=== PATIENT | male | born 1990 | race Caucasian/White ===

== ENCOUNTER 2020-08-06 17:13 | Emergency (ER) | payer MEDICAID, SELFPAY ==
[2020-07-29 13:03] VITALS: BMI 32.9
[2020-08-06 17:15] VITALS: BP 164/89; PULSE 127; RESP 30; TEMP 37.2; O2SAT 98; BMI 32.1
--- NOTE | 2020-08-06 17:19 | NURSING ---
NO OLD EKGS
[2020-08-06 17:20] VITALS: BP 164/89; PULSE 133; RESP 24; TEMP 37.1; O2SAT 97
--- NOTE | 2020-08-06 17:30 | EKG12_ITS ---
Test Reason : TACHYCARDIA Blood Pressure : / mmHG Vent. Rate : 130 BPM Atrial Rate : 130 BPM P-R Int : 138 ms QRS Dur : 086 ms QT Int : 298 ms P-R-T Axes : 037 049 025 degrees QTc Int : 438 ms Sinus tachycardia Otherwise normal ECG Confirmed by BRENT BECKFORD, ELISE ([id number]), science editor ERNIE FISCHER ([id number]) on 08/08/2020 9:35:46 AM Referred By: KARLEY Confirmed By:MEGHAN KENNEDY MD
--- NOTE | 2020-08-06 17:31 | CT_ITS ---
STUDY: CTA CHEST WITH CONTRAST REASON FOR EXAM: Male, 30 years old patient with chest pain and tachycardia RADIATION DOSAGE (If Supplied By Facility): DLP = ( 974.74 ) mGycm TECHNIQUE: The examination was performed with the intravenous administration of 100mL of Isovue-370. Post-processing of the angiographic images was performed, with multiplanar reformation and 3D reconstruction. Individualized dose optimization techniques were used for this CT. COMPARISON: No relevant priors. FINDINGS: CTA Chest Normal enhancement of the main pulmonary artery and right and left pulmonary arteries. There is limited enhancement of the bilateral peripheral pulmonary arteries. There is no demonstrated pulmonary embolism. Normal thoracic aorta and visualized great vessels. There is no demonstrated aortic dissection. Normal heart and pericardium. Normal mediastinum. Normal hilar regions. Normal visualized trachea and bronchi. The lungs are well expanded. Normal pulmonary parenchyma. Normal pleura. Normal chest wall structures. There are degenerative changes of thoracic spine. There appears to be hepatic steatosis. CT/CTA Chest W/WO Contrast IMPRESSION: 1. No CT evidence for central pulmonary embolus. 2. No evidence for aortic dissection. 3. No CT evidence of acute cardiopulmonary disease. Electronically Signed: Barbara Helton MD at 19:15 EDT , Service support ,
--- NOTE | 2020-08-06 17:31 | ED.VISSUMM ---
- ER Visit Summary Date of Service: 08/06/20 Chief Complaint: [Chest pain] History of Present Illness: The patient is a 30 M [presents to the emergency department complaint of chest pain that started while at work today. 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 Patient states that he had Covid recently but was cleared to go back to work. Patient feels like he is going to and has been praying to God. Patient has remote history of methamphetamine use but denies using recently. States that he is in recovery. Patient has no medical history otherwise. He denies alcohol use.] Physical Examination: [HEENT-PERRLA, EOMI. Cranial nerves II through XII grossly intact. TMs clear. Mucous membranes moist. No adenopathy. Cardiovascular-regular and tachycardic with heart rate in the 130s. No murmurs auscultated. Lungs-clear to auscultation, chest wall stable without crepitus or subcu emphysema Abdomen-normoactive bowel sounds, soft, nontender, no rebound or rigidity, no peritoneal signs. Extremities-intact ?4, normal range of motion, normal pulses, atraumatic] Test Results: [EKG obtained arrival shows sinus tachycardia with a ventricular rate of 130 bpm with no acute ST segment changes noted.] CTA of the chest was negative for PE or dissection. CBC with differential showed a slightly elevated white count of 14.3, hemoglobin 14.6, hematocrit 42, platelet 282. Chemistries unremarkable. Troponin was less than 0.015. Toxicology screen was positive for methamphetamines. Emergency Department Course and Treatment: [IV line established on arrival. Patient became uncooperative and was standing in the room and was very paranoid and agitated therefore he was given Ativan 1 mg IV and Geodon 10 mg IM. Patient did calm down easily afterwards. On repeat examination approximately 4 hours after arrival he is feeling much improved. His paranoia is essentially resolved. Patient is asking to be discharged and I think this is reasonable. Patient states that he left his phone at work so he can call anybody but has money and would like to take a cab home.] Treatment Plan: [Patient advised to discontinue methamphetamine use. Is to follow-up with his primary care physician as needed and I will refer him to primary care physician if he does not have one.] Disposition: [Discharged home in stable condition] Impression: [Chest pain-etiology uncertain Methamphetamine drug abuse with resultant paranoia] This note was generated with [employer] dictation software. It may contain incorrect words, spelling, and punctuation that were not noted in review of the chart prior to signing
[2020-08-06 17:41] LABS: Absolute Lymphocyte Count 2.11 X10^3/uL (0.83-4.51); Absolute Neutrophil Count 10.7 X10^3/uL (2.0-7.7); Basophil# 0.03 X10^3/uL; Basophil% 0.2 % (0-1); Eosinophil# 0.06 X10^3/uL; Eosinophils% 0.4 % (0-5); Hematocrit 42.5 % (40-54); Hemoglobin 14.6 g/dL (13.0-16.5); Lymphocyte # 2.11 X10^3/ul (4.0); Lymphocyte % 14.8 % (19-41); Mean Corp Hgb Conc 34.4 g/dL (32-36); Mean Corpuscular Volume 87.3 fL (80-94); Mean Platelet Vol. 9.6 fl (6.2-12.0); Monocyte# 1.34 X10^3/uL; Monocyte% 9.4 % (0-10); NRBC Flagged by Analyzer 0 % (0-5); Neutrophil # 10.66 X10^3/uL (2.7-7.7); Neutrophil % 74.8 % (47-70); Platelet Count 282 K/mm3 (150-450); RBC Distribution Width SD 43.7 fl (35.1-43.9); Red Blood Count 4.87 M/mm3 (4.6-6.2); White Blood Count 14.3 K/mm3 (4.4-11.0)
[2020-08-06 17:56] LABS: Anion Gap 9 (5-15); BUN 13 mg/dL (7-18); BUN/Creat Ratio 11.1 RATIO (10-20); Calcium,Total 9.8 mg/dL (8.5-10.1); Chloride 103 mmol/L (98-107); Creatinine, Serum 1.17 mg/dL (0.70-1.30); EST Glomerular Filtration Rate 79 mL/min (>60); Est Glom Filt Rate - Afr Amer 95 mL/min (>60); Glucose 96 mg/dL (74-106); Potassium 3.5 mmol/L (3.5-5.1); Sodium Level 140 mmol/L (136-145)
[2020-08-06] MEDS: LORazepam 2 MG/ML Syringe 1 MG IV (17:56)
[2020-08-06] MEDS: Ziprasidone IM 20 MG/ML VIAL 10 MG IM (17:58)
[2020-08-06 19:17] VITALS: BP 157/78; PULSE 102; RESP 16; O2SAT 99
[2020-08-06 19:49] LABS: Amphetamine Urine VISTA POSITIVE (<1000 ng/mL); Barbiturate Urine VISTA NEGATIVE (< 200 ng/mL); Benzodiazepine Urine VISTA NEGATIVE (< 200 ng/mL); Cocaine Urine VISTA NEGATIVE (< 300 ng/mL); Ecstacy Urine VISTA POSITIVE (< 500 ng/mL); Methadone Urine VISTA NEGATIVE (< 300 ng/mL); PCP Urine VISTA NEGATIVE (< 25 ng/mL); THC Urine VISTA NEGATIVE (< 50 ng/mL); Vista UDS pH Range 6
--- NOTE | 2020-08-06 21:00 | ED.RN ---
UPON ARRIVAL TO ED PT PARANOID, STATES HE IS ABOUT TO , HAVING VISUAL HALLUCINATIONS. PT FOUND OUT OF BED, LOOKING BEHIND BED, CROUCHING IN CORNERS. CONTINUES TO STATE HE IS ABOUT TO . PUPILS DILATED, DIFFICULT TO REDIRECT. PT AT THIS TIME NOW APPEARS LUCID, NORMAL CONVERSATION WITH THIS RN, STATES I FEEL MUCH BETTER.
--- NOTE | 2020-08-06 21:15 | ED.DEP ---
ED Disposition - Plan for ED Patient: Instructions: ED Chest Pain, Uncertain Cause, ED Drug Abuse Referrals: Care Physician,No Primary [Primary Care Provider] - Cruz Hull MD [STAFF PHYSICIAN] - 3-5 Days
[2020-08-06 21:51] VITALS: BP 128/74; PULSE 87; RESP 16; O2SAT 99
== END 2020-08-06 21:53 | disposition home or self-care (01) ==
LOC: ED 18:05
PROVIDERS: Emergency Provider Emergency Medicine
DX: R07.9 Chest pain, unspecified (principal); F15.10 Other stimulant abuse, uncomplicated; R45.1 Restlessness and agitation; F22 Delusional disorders; R00.0 Tachycardia, unspecified; Z72.0 Tobacco use; Z86.16 Personal history of COVID-19
CPT/HCPCS: 71275; 80048; 80307; 84484; 85025; 93005; 96372; 96374; 99285; Q9967; J3486

== ENCOUNTER 2020-08-07 02:21 | Observation (INO) | payer MEDICAID, SELFPAY ==
[2020-08-06 17:15] VITALS: BMI 32.1
[2020-08-07 02:21] VITALS: BP 155/96; PULSE 116; RESP 16; TEMP 37.2; O2SAT 99; BMI 32.1
--- NOTE | 2020-08-07 02:28 | EKG12_ITS ---
Test Reason : DYSRHYTHMIA Blood Pressure : / mmHG Vent. Rate : 122 BPM Atrial Rate : 122 BPM P-R Int : 142 ms QRS Dur : 088 ms QT Int : 314 ms P-R-T Axes : 034 029 023 degrees QTc Int : 447 ms Sinus tachycardia Otherwise normal ECG Confirmed by BRENT BECKFORD, ELISE ([id number]), supervising editor trailer ERNIE FISCHER ([id number]) on 08/08/2020 9:36:02 AM Referred By: CL Confirmed By:MEGHAN KENNEDY MD
[2020-08-07] MEDS: 0.9% Normal Saline 1,000 ML 999 ML IV (02:41)
[2020-08-07] MEDS: LORazepam 2 MG/ML Syringe 1 MG IV (02:41)
[2020-08-07 02:44] VITALS: BP 155/96; PULSE 116; RESP 16; TEMP 37.2; O2SAT 99
--- NOTE | 2020-08-07 02:48 | HP.PCM_ITS ---
Problem List (1) Admitted to alcohol detoxification center Status: Acute (2) Alcohol abuse Status: Chronic (3) Methamphetamine use Status: Chronic (4) Tobacco use Status: Chronic History of Present Illness Date of Admission: 08/07/20 Chief Complaint: EtOH withdrawal treatment request The patient is a 30 y/o M w/ PMHx: Tobacco use, polysubstance abuse with methamphetamines and heavy alcohol intake who presents to the [facility] ED on 08/07/20 with history of usual intake of vodka up to 1 pint daily however his last heavy intake was approximately 1 week prior to current presentation with transition into the transition house as well as history of frequent methamphetamines which he smokes and last notes smoking the day prior. He states he was recently kicked out of the transition house for breaking his contract. He does state that his last alcohol formal intake was the evening prior to current presentation with specifically 1 twisted tea, 1 Point Lay Light and a [employer] hard lemonade. Following his recent heavy intake cessation he did have mild nausea with tremors and agitation but currently denies any nausea, tremors or tactile disturbances. Upon evaluation he is extremely agitated and paranoid frequently requesting to hold the 180 wraps hand. Patient of note has recently come off of COVID-19 precautions, testing +11 days prior to current presentation with mild coarse, currently allowed to return to work. Work-up in the ED included T 99, heart rate 116, BP 155/96, respiratory rate 16, 99% on room air, pending CBC, BMP, alcohol level, urinalysis and urine drug screen upon requested ED evaluation. In the ED patient ministered normal saline as well as Ativan 1 mg IV x1. Past Medical History Past Medical History (Chronic Problems): Chronic Problems Alcohol abuse (Chronic) Methamphetamine use (Chronic) Tobacco use (Chronic) Allergies No Known Allergies Allergy (Unverified 08/06/20 17:23) Home Medications: Ambulatory Orders Medication Instructions Recorded NK 08/06/20 Surgical History: - - Patient had surgery related with spina bifida. Psychiatric History: No pertinent psych hx - Patient denies any psychiatric history including anxiety, depression, bipolar disorder. Lives: Homeless - Patient recently kicked out of the transition house for breaking his contract per his report. Smoking Status: Current every day smoker - Patient with ongoing 1 pack/day cigarette tobacco usage. Tobacco Use: Cigarettes Alcohol: Heavy - Patient reports heavy alcohol intake, usually up to 1 pint of vodka daily, last heavy usage 1 week prior, last alcohol intake 08/06/2020 with 1 Catalino[employer] hard lemonade, 1 twisted tea, 1 Point Lay Light. Drugs: - - Patient with frequent methamphetamine usage, smokes, last day prior. - *Family History Maternal History Items: - - Patient denies any marked maternal family history including heart disease, diabetes or cancer. Paternal History Items: - - Patient denies any market paternal family history including heart disease, diabetes, cancer. Review of Systems Constitutional: Reports: Malaise, Fatigue. Denies: Chills, Fever, Weight Change HEENT: Reports: Head Aches. Denies: Sinus Congestion, Sinus Drainage Cardiovascular: Denies: Chest Pain, Palpitations Respiratory: Reports: Cough, Shortness of Breath. Denies: Shortness of breath at rest, Shortness of breath upon exertion, Sputum production Gastrointestinal: Denies: Abdominal Pain, Nausea, Vomiting Genitourinary: Denies: Dysuria Musculoskeletal: Reports: Joint Pain. Denies: Joint Tenderness Skin: Denies: Rash, Wounds Neurological: Reports: Tremor. Denies: Focal weakness, Numbness, Tingling Psychiatric: Denies: Anxiety, Depression, Homicidal Ideations, Suicidal Ideations Hematologic/ Lymphatic: Denies: Easy Bruising, Easy Bleeding VTE Information - Inpt Only VTE Present on Admission: No VTE Mechan Device Prophylaxis: None VTE Pharm Prophylaxis ordered?: No Reason prophylaxis not ordered:: Treatment Not Indicated Patient Problems: Active and Suspected Problems (Last Reviewed 07/29/20 @ 13:06 by Jess Barakat RN) Admitted to alcohol detoxification center (Acute) Subjective: Patient seated upright in the bed, very flat affect, frequently looking at the floor in the 180 medical sales representative, frequently holding her hand. Objective: Physical Examination: General: awake, alert, oriented x 3 and cooperative, initially walking around in the ED room, frequently looking around, some paranoid behavior. Skin: normal color, turgor, no icterus, cyanosis, several tattoos including facial. HEENT: AT/NC, EOMI, PERRLA, mildly dry MM, no carotid bruits or JVD noted. Lungs: Diminished breath sounds, greater bases, no obvious distress, no rales, ronchi or wheezing. Heart: Mildly tachycardic with regular rhythm; no gallop, rub audible. Abdomen: soft, NTTP, ND, normal BS, no HSM. Extremities: no cyanosis, clubbing, or edema. Neurological: patient awake, alert, oriented as noted; cognitive function appears intact although patient very paranoid, possibly related with recent methamphetamine usage; pupils equally reactive to light and accomodation; cr anial nerves II-XII grossly normal, moving all 4 extremities, no focal deficits, strength preserved. Psychiatric: affect appears flat but at the same time intermittently paranoid and mildly agitated, no acute evidence of depressive or anxiety feelings. - Physical Exam Vitals/I&O's: Vital Signs Temp Pulse Resp BP Pulse Ox 99.0 F 116 H 16 155/96 H 99 08/07/20 02:44 08/07/20 02:44 08/07/20 02:44 08/07/20 02:44 08/07/20 02:44 Oxygen Delivery Method Room Air Weight: 217 lb 6.012 oz Body Mass Index (BMI) 32.1 Current Medications Sodium Chloride () 1,000 mls @ 999 mls/hr IV .Q1H1M ONE Stop: 08/07/20 03:29 Last Admin: 08/07/20 02:41 Dose: 999 mls/hr Documented by: Assessment/Plan All Active Problems (Last Reviewed 07/29/20 @ 13:06 by Jess Barakat RN) Admitted to alcohol detoxification center (Acute) Infected dental carries (Acute) The patient is a 30 y/o M w/ PMHx: Tobacco use, polysubstance abuse with methamphetamines and heavy alcohol intake who presents to the [facility] ED on 08/07/20 with history of usual intake of vodka up to 1 pint daily however his last heavy intake was approximately 1 week prior to current presentation with transition into the transition house as well as history of frequent methamphetamines which he smokes and last notes smoking the day prior. 1. Acute EtOH Withdrawal: Will admit to MS, routine labs obtained in the ED upon presentation and pending upon evaluation. Given interest in sobriety, will initiate and continue on protocol with taper course of Phenobarbital, scheduled gabapentin for seizure prophylaxis, as needed Catapres, Bentyl, Vistaril, IV fluids, IV antiemetics, Tylenol as needed for pain. Will consult Case management for assistance for transition to next level of rehabilitation care. Mag, phos pending. Maintain on CIWA protocol concurrently. 2. Recent Acute Viral Syndrome, COVID-19: Noted testing positive 07/29/2020 with symptom onset prior to being tested, noted a very mild course, resolved, currently out of quarantine. 3. Polysubstance abuse: Concurrent methamphetamine usage, smokes per his report, UDS pending upon presentation, notes last usage day prior, likely contributing to his agitation paranoia. 4. Tobacco Abuse: Encouraged cessation, inpatient consultation per RT, NR if desired. 5. DVT prophylaxis: Low risk, encourage ambulation. Inpatient E&M: 14001 Init Hosp L2
--- NOTE | 2020-08-07 02:48 | ED.VIS.GEN ---
History of Present Illness Chief Complaint: Substance Abuse Informant: Patient Narrative: 30-year-old male presents with concern for substance abuse. Patient is requesting detox from methamphetamine and alcohol. Was seen earlier today with concern for chest pain. Patient was found to likely be high methamphetamine at that time. Patient was discharged home. Denies any current chest pain. Patient does admit to using meth yesterday and alcohol 1 week ago. States that he tested positive for Covid approximately Mims days ago. Had a piece of paper stating he returned to work yesterday. Denies any current fever, chills, cough, upper respiratory congestion, nausea vomiting, abdominal pain. Past Medical History - Allergies and Home Meds Allergies/Adverse Reactions: Allergies No Known Allergies Allergy (Unverified 08/06/20 17:23) Primary Care Physician: Care Physician,No Primary [Primary Care Provider] - Prior records reviewed: Yes Past Medical History: None Surgical History: no surgical history Lives: Alone Smoking Status: Current every day smoker Alcohol: Heavy Drugs: - - methamphetamine Review of Systems General: Denies: Chills, Fever, Sweats Eyes: Denies: Visual changes - bilaterally, Diplopia ENT: Denies: Rhinorrhea, Sore throat Cardiovascular: Denies: Chest pain, Palpitations Respiratory: Denies: Dyspnea, Cough, Dyspnea on exertion Gastrointestinal: Denies: Abdominal pain, Nausea, Vomiting, Diarrhea, Melena, Hematochezia Genitourinary: Denies: Dysuria, Hematuria, Frequency Musculoskeletal: Denies: Back pain, Extremity Pain Skin: Denies: Rash, Wounds Neurological: Denies: Headache, Weakness, Numbness Physical Exam Vital Signs/Narrative: Vital Signs Temp Pulse Resp BP Pulse Ox 08/07/20 02:44 99.0 F 116 H 16 155/96 H 99 08/07/20 02:21 99.0 F 116 H 16 155/96 H 99 Inital Vital Signs reviewed: Yes General: Well nourished, Well developed, No Acute Distress Head: Normocephalic, Atraumatic Eyes: Perrl, EOMI ENT: Moist mucous membranes, No rhinorrhea Neck: Supple, Nontender Cardiovascular: Regular rate, Regular rhythm, No murmurs Respiratory: No distress, CTA bilaterally, Chest nontender Abdomen: Soft, Nontender, Nondistended, Normal bowel sounds Back: Nontender, Normal Inspection Extremities: Nontender, No edema Skin: Normal color, No rash Neurological: Alert, Oriented x3, Cranial nerves II-XII grossly intact, Normal Strength, Normal Sensation Psychological: Normal affect, Normal Mood Diagnostic/Tx/Re-eval Laboratory Data 08/07/20 08/07/20 02:50 02:50 WBC 11.2 H RBC 5.14 Hgb 15.0 Hct 44.5 MCV 86.6 MCH 29.2 MCHC 33.7 RDW Std Deviation 43.5 RDW Coeff of Chucky 13.7 Plt Count 284 MPV 9.5 Immature Gran % (Auto) 0.300 Neut % (Auto) 68.9 Lymph % (Auto) 20.4 [place] % (Auto) 9.9 Eos % (Auto) 0.1 Baso % (Auto) 0.4 Absolute Neuts (auto) 7.7 Absolute Lymphs (auto) 2.29 Nucleated RBC % 0 Ethyl Alcohol < 3.0 - Rhythm Strip Rhythm Strip: Sinus Tach Rate: 122 Ectopy: None - EKG Initial EKG Interpretation: Sinus Tachycardia - Sinus tachycardia at 122 bpm. MA interval of 142 ms. QTC of 447 ms. No evidence of acute ischemia. - Medical Decision Making Patient appears well nontoxic. Tachycardic. Patient given 1 mg of Ativan and a liter of fluids. Patient had full work-up earlier today. Spoke with hospitalist who is agreeable with admission for treatment of his substance abuse. Stable at time of admission. Impression: 1. Amphetamine abuse 2. Alcohol abuse ED Disposition - Plan for ED Patient: Disposition: Acute Care Hospital [facility] Referrals: Care Physician,No Primary [Primary Care Provider] -
[2020-08-07 02:53] LABS: Absolute Lymphocyte Count 2.29 X10^3/uL (0.83-4.51); Absolute Neutrophil Count 7.7 X10^3/uL (2.0-7.7); Basophil# 0.04 X10^3/uL; Basophil% 0.4 % (0-1); Eosinophil# 0.01 X10^3/uL; Eosinophils% 0.1 % (0-5); Hematocrit 44.5 % (40-54); Lymphocyte # 2.29 X10^3/ul (4.0); Lymphocyte % 20.4 % (19-41); Mean Corp Hgb Conc 33.7 g/dL (32-36); Mean Corpuscular Hgb 29.2 pg (27.0-32.0); Mean Corpuscular Volume 86.6 fL (80-94); Mean Platelet Vol. 9.5 fl (6.2-12.0); Monocyte# 1.11 X10^3/uL; Monocyte% 9.9 % (0-10); NRBC Flagged by Analyzer 0 % (0-5); Neutrophil # 7.74 X10^3/uL (2.7-7.7); Neutrophil % 68.9 % (47-70); Platelet Count 284 K/mm3 (150-450); RBC Distribution Width CV 13.7 % (11.6-14.6); RBC Distribution Width SD 43.5 fl (35.1-43.9); Red Blood Count 5.14 M/mm3 (4.6-6.2); White Blood Count 11.2 K/mm3 (4.4-11.0)
[2020-08-07 03:06] LABS: Alcohol, Blood (Medical)-Serum < 3.0 mg/dL
[2020-08-07 03:13] LABS: Anion Gap 8 (5-15); BUN 15 mg/dL (7-18); BUN/Creat Ratio 13.9 RATIO (10-20); Calcium,Total 9.4 mg/dL (8.5-10.1); Chloride 104 mmol/L (98-107); Creatinine, Serum 1.08 mg/dL (0.70-1.30); EST Glomerular Filtration Rate 86 mL/min (>60); Est Glom Filt Rate - Afr Amer 105 mL/min (>60); Estimated Creatinine Clearance 101.83 ml/min; Glucose 106 mg/dL (74-106); Potassium 3.6 mmol/L (3.5-5.1); Sodium Level 140 mmol/L (136-145)
[2020-08-07 03:57] VITALS: BP 152/80; PULSE 88; RESP 16; TEMP 37.1; O2SAT 98
[2020-08-07 04:07] VITALS: BMI 27.3
[2020-08-07 04:15] VITALS: BP 146/81; PULSE 118; RESP 24; TEMP 36.3; O2SAT 97
--- NOTE | 2020-08-07 05:40 | ED.RN ---
MOTHER - ELIZA [phone]
[2020-08-07 05:55] LABS: Phosphorus 3.2 mg/dL (2.5-4.9)
[2020-08-07] MEDS: Lactated Ringers 1,000 ML 125 ML IV (06:27)
[2020-08-07 08:03] VITALS: BP 144/87; PULSE 122; RESP 16; TEMP 36.9; O2SAT 99
[2020-08-07] MEDS: Thiamine Hydrochloride 100 MG Tablet PO (08:18)
[2020-08-07] MEDS: Folic Acid 1 MG Tablet PO (08:18)
[2020-08-07] MEDS: Multivitamins,Therapeutic Tablet 1 TABLET PO (08:18)
[2020-08-07] MEDS: Phenobarbital 32.4 MG Tablet 97.2 MG PO (09:38)
--- NOTE | 2020-08-07 10:00 | CASEMGMT ---
Social Work Pt admitted for Detox program for alcohol and methamphetamine use. Phone call to [facility] patient navigator Ana from [employer]. She plans to see patient tomorrow. YOLANDA Lopez
--- NOTE | 2020-08-07 11:32 | PCM.PN.HOSP ---
Patient Problems: Active and Suspected Problems (Last Reviewed 07/29/20 @ 13:06 by Jess Barakat RN) Admitted to alcohol detoxification center (Acute) Subjective: Patient seen and examined. Patient has been managed for acute alcohol withdrawal. Patient is very paranoid and was hiding behind the curtain when I went into the room. He quickly started looking in the bathroom and looking end of the bed and lifted up the bed to look under the mattress to see people with hiding there. He kept pacing around the room looking everywhere to see there were people there. He had no other complaints. He has remained hemodynamically stable. Vitals/I&O's: Vital Signs Temp Pulse Resp BP Pulse Ox 98.5 F 122 H 16 144/87 H 99 08/07/20 08:03 08/07/20 08:03 08/07/20 08:03 08/07/20 08:03 08/07/20 08:03 Oxygen Delivery Method Room Air Weight: 185 lb 0.014 oz Body Mass Index (BMI) 27.3 Intake and Output for Last 24 Hours 08/05/20 08/06/20 08/07/20 23:59 23:59 23:59 Intake Total 1140 / 1140 Balance 1140 / 1140 General: Alert, - - extremely paranoid HEENT: Atraumatic, PERRLA, EOMI, Normocephalic Oral: Dry Mucosa Neck: Supple, No JVD, Negative Carotid Bruits Lungs: Clear to auscultation, Normal air movement, No rhonchi, No wheeze, No rales Cardiovascular: Regular rate, Regular Rhythm, Normal S1, Normal S2, No murmurs Abdomen: Bowel Sounds Present, Soft, Non Tender, Non-Distended, No Hepato-splenomegaly Extremities: No clubbing, No cyanosis, No edema, Capillary Refill Less than 3 Seconds Skin: No rashes, No breakdown Musculoskeletal: No Tenderness to Palpation of Joints or Extremities Lymphatic: No Cervical, Supraclavicular, or Inguinal Adenopathy Neurological: Cranial nerves II-XII grossly intact, Neuro grossly intact, Motor Exam 5/5 strength throughout Psych/Mental Status: Irrational Behavior, - - very paranoid Laboratory Results 08/07/20 02:50: WBC 11.2 H, RBC 5.14, Hgb 15.0, Hct 44.5, MCV 86.6, MCH 29.2, MCHC 33.7, RDW Std Deviation 43.5, RDW Coeff of Chucky 13.7, Plt Count 284, MPV 9.5, Immature Gran % (Auto) 0.300, Neut % (Auto) 68.9, Lymph % (Auto) 20.4, [place] % (Auto) 9.9, Eos % (Auto) 0.1, Baso % (Auto) 0.4, Absolute Neuts (auto) 7.7, Absolute Lymphs (auto) 2.29, Nucleated RBC % 0 08/07/20 02:50: Sodium 140, Potassium 3.6, Chloride 104, Carbon Dioxide 28.0, Anion Gap 8, BUN 15, Creatinine 1.08, Estim Creat Clear Calc 101.83, Est GFR (MDRD) Af Amer 105, Est GFR (MDRD) Non-Af 86, BUN/Creatinine Ratio 13.9, Glucose 106, Calcium 9.4 08/07/20 02:50: Ethyl Alcohol < 3.0 08/07/20 02:50: Phosphorus 3.2 Current Medications Acetaminophen (Acetaminophen 500 Mg Tablet) 500 mg PO Q4H PRN PRN PRN Reason: Temp > 100.4 F Al Hydroxide/Mg Hydroxide (Mag Hydrox/Al Hydrox/Simeth 30 Ml Udc) 30 ml PO Q6H PRN PRN PRN Reason: dyspesia Albuterol Sulfate (Albuterol 2.5 Mg/3 Ml Vial.Neb.) 2.5 mg INHALATION Q2H PRN PRN PRN Reason: Dyspnea, wheezing Bisacodyl (Bisacodyl 10 Mg Suppository) 10 mg RC DAILY PRN PRN Reason: Constipation Dicyclomine HCl (Dicyclomine 10 Mg Capsule) 20 mg PO Q6H PRN PRN PRN Reason: abdominal discomfort Folic Acid (Folic Acid 1 Mg Tablet) 1 mg PO DAILY@0800 [facility], [facility] Last Admin: 08/07/20 08:18 Dose: 1 mg Documented by: Gabapentin (Gabapentin 300 Mg Capsule) 300 mg PO Q8H PRN PRN PRN Reason: moderate to severe anxiety Hydralazine HCl (Hydralazine 20 Mg/Ml Vial) 10 mg IV Q4H PRN PRN PRN Reason: SBP > 160 Hydroxyzine Pamoate (Hydroxyzine Carolyn 25 Mg Capsule) 50 mg PO Q4H PRN PRN PRN Reason: mild anxiety Sodium Chloride () 250 mls @ 15 mls/hr IV .[id number] PRN PRN Reason: Additional IVPB Infusion Lactated Ringer's () 1,000 mls @ 125 mls/hr IV .Q8H [facility] Stop: 08/07/20 13:35 Last Admin: 08/07/20 06:27 Dose: 125 mls/hr Documented by: Ibuprofen (Ibuprofen 600 Mg Tablet) 600 mg PO Q8H PRN PRN PRN Reason: PAIN 1-10 Loperamide HCl (Loperamide 2 Mg Capsule) 2 mg PO Q4H PRN PRN PRN Reason: LOOSE STOOLS Multivitamins ([facility]ivit[facility],Therapeutic Tablet) [facility] Last Admin: 08/07/20 08:18 Dose: 1 tablet Documented by: Nicotine (Nicotine 21 Mg Patch) 21 mg TD DAILY [facility] Last Admin: 08/07/20 08:49 Dose: Not Given Documented by: Ondansetron HCl (Ondansetron Odt 4 Mg Tablet) 8 mg PO Q8H PRN PRN PRN Reason: NAUSEA Phenobarbital (Phenobarbital 32.4 Mg Tablet) 97.2 mg PO Q4H [facility]; Taper Stop: 08/11/20 13:59 Last Admin: 08/07/20 09:38 Dose: 97.2 mg Documented by: Senna (Senna Tablet) 2 tablet PO QHS PRN PRN PRN Reason: Constipation Sodium Chloride (0.9% Saline Lock 10 Ml Syringe) 10 - 40 ml IV UD PRN PRN Reason: SALINE FLUSH Thiamine HCl (Thiamine Hydrochloride 100 Mg Tablet) [facility] Last Admin: 08/07/20 08:18 Dose: 100 mg Documented by: Trazodone HCl (Trazodone 100 Mg Tablet) 100 mg PO QHS PRN PRN PRN Reason: INSOMNIA STROKE Vital Signs/Narrative: Vital Signs Temp Pulse Resp BP Pulse Ox 08/07/20 08:03 98.5 F 122 H 16 144/87 H 99 Medical Necessity - Tobacco Use Smoking Status: Current every day smoker Tobacco Use: Cigarettes Assessment/Plan All Active Problems (Last Reviewed 07/29/20 @ 13:06 by Jess Barakat RN) Admitted to alcohol detoxification center (Acute) Infected dental carries (Acute) #Acute alcohol withdrawal on alcohol withdrawal protocol with buprenorphine monitor CIWA score #History of recent COVID infection doesnt need to be in self isolation any more #polysubstance abuse with paranoia Patient is very paranoid uses methamphetamine as well. #Nicotine dependence: counseled to quit. #DVT prophylaxis: low risk. encourage ambulation. Inpatient E&M: 97017 Subs Hosp L2
[2020-08-07 12:10] VITALS: BP 142/105; PULSE 129; RESP 18; TEMP 37.1; O2SAT 100
--- NOTE | 2020-08-07 12:36 | NURSING ---
talked with Dr. Soriano, pt extremely paranoid. has moved everything in the patient's room against the wall. will not leave the room door open even with the staff in the room. security coming up. pt now states wants to leave ama. concern regarding safety. Dr. Soriano states we can't hold patient here but request crisis be consulted/called. [id number]-security and hro remains on unit. crisis called.
--- NOTE | 2020-08-07 13:05 | NURSING ---
LATE ENTRY - PT TRANSFER FROM ICU. UPON ENTERING ROOM, WATERSIDE WORKER WAS IN THERE TALKING WITH PT. PT VERY PARANOID. LOOKING AROUND, REQUESTING FURNITURE IN ROOM TO BE MOVED AROUND TO OTHER AREAS. WATERSIDE WORKER & THIS RN ATTEMPTED TO CALM PT, UNSUCCESSFUL. PT WOULD NOT SIT DOWN, PACING ROOM, LOOKING IN CABINETS, UNDER BED, ETC. PT STATED HE WANTS OUT OF THIS PLACE. SOMETHING DOESN'T FEEL RIGHT. SECURITY CALLED BY CHARGE NURSE. THEY ATTEMPTED ALSO TO CALM PT, UNSUCCESSFULLY. DR ROA NOTIFIED OF PT BEHAVIOR & WANTING TO LEAVE. WOULD LIKE CRISIS TO SEE PT. EXPLAINED THIS TO PT & HE SAID CAN I GO TO AN OFFICE & TALK TO THEM. TOLD PT THAT SOMEONE WOULD COME HERE TO HIS ROOM & TALK WITH HIM. PT STATES HE WANTS TO GO. PT DID SIGN AMA PAPERS, BUT THEN RECONSIDERED AFTER BEING TOLD WE COULD GET SOME MEDICATION TO HELP HIM CALM DOWN. HOWEVER, THE LONGER THE PT LOOKED AROUND HIS ROOM, THE MORE PARANOID HE BECAME. MANUFACTURING PLANT MANAGER, ENRIQUE WAS ABLE TO CONTACT 180 & THEY WERE AGREEABLE TO TAKE PT BACK. PT CAME OUT OF HIS ROOM WHILE ENRIQUE WAS ON THE PHONE STATING HE WANTED TO LEAVE. SOMEONE'S GOING TO SHOOT ME. SOMETHING'S NOT RIGHT. ENRIQUE WAS ABLE TO TAKE PT DOWNSTAIRS FOR [facility] PICKUP. PT ACTUALLY RAN OFF THE UNIT WITH THE OFFICER.
--- NOTE | 2020-08-07 17:08 | DS.PCM_ITS ---
Discharge Date and Diagnosis - Problem List Patient Problems: Active and Suspected Problems (Last Reviewed 07/29/20 @ 13:06 by Jess Barakat RN) Admitted to alcohol detoxification center (Acute) Date of Admission: 08/07/20 Date of Discharge: 08/07/20 - Primary Discharge Diagnosis Acute Problems: Active Problems (Last Reviewed 07/29/20 @ 13:06 by Jess Barakat RN) acute alcohol withdrawal - Secondary Discharge Diagnosis Chronic Problems: Chronic Problems Alcohol abuse (Chronic) Methamphetamine use (Chronic) Tobacco use (Chronic) Hospital Course and Treatment Operations: None Procedures: None Summary of Care Provided: The patient is a 30 year old M with a PMH as outlined who was admitted with a complaint of acute alcohol withdrawal. He also wanted to detox from methamphetamine. Patient had been seen earlier in the ED on the day of admission for chest pain was found to have elevated methamphetamine levels. He had also tested positive for Covid about 11 days prior to admission and was out of isolation at time he came in. Review of symptoms otherwise negative. He was admitted to be managed for acute alcohol withdrawal. Patient was very paranoid during admission and was hiding behind the curtains and looking under the bed, in the bathroom and everywhere to see people were hiding there. Started on alcohol withdrawal protocol with phenobarbital. Patient remained very paranoid during his admission and signed out AGAINST MEDICAL ADVICE on 08/07/2020. Patient was seen and examined prior to him leaving AGAINST MEDICAL ADVICE. As mentioned above, he was very paranoid and raised the bed and looked all under the bed to find someone hiding under it. He was looking in the bathroom and looking in the trash cans as well as a cane behind the curtain to find someone hiding there. Review of stems otherwise negative. O/E: [] Vital Signs Temp Pulse Resp BP Pulse Ox 98.7 F 129 H 18 142/105 H 100 08/07/20 12:10 08/07/20 12:10 08/07/20 12:10 08/07/20 12:10 08/07/20 12:10 General: Alert, - - extremely paranoid HEENT: Atraumatic, PERRLA, EOMI, Normocephalic Oral: Dry Mucosa Neck: Supple, No JVD, Negative Carotid Bruits Lungs: Clear to auscultation, Normal air movement, No rhonchi, No wheeze, No rales Cardiovascular: Regular rate, Regular Rhythm, Normal S1, Normal S2, No murmurs Abdomen: Bowel Sounds Present, Soft, Non Tender, Non-Distended, No Hepato- splenomegaly Extremities: No clubbing, No cyanosis, No edema, Capillary Refill Less than 3 Seconds Skin: No rashes, No breakdown Musculoskeletal: No Tenderness to Palpation of Joints or Extremities Lymphatic: No Cervical, Supraclavicular, or Inguinal Adenopathy Neurological: Cranial nerves II-XII grossly intact, Neuro grossly intact, Motor Exam 5/5 strength throughout Psych/Mental Status: Irrational Behavior, - - very paranoid Patient signed out AGAINST MEDICAL ADVICE. Patient Problems: Active and Suspected Problems (Last Reviewed 07/29/20 @ 13:06 by Jess Barakat RN) Admitted to alcohol detoxification center (Acute) - Physical Exam Vitals/I&O's: Vital Signs Temp Pulse Resp BP Pulse Ox 98.7 F 129 H 18 142/105 H 100 08/07/20 12:10 08/07/20 12:10 08/07/20 12:10 08/07/20 12:10 08/07/20 12:10 Oxygen Delivery Method Room Air Weight: 185 lb 0.014 oz Body Mass Index (BMI) 27.3 Intake and Output for Last 24 Hours 08/05/20 08/06/20 08/07/20 23:59 23:59 23:59 Intake Total 1140 / 1140 Balance 1140 / 1140 Laboratory Results 08/07/20 02:50: WBC 11.2 H, RBC 5.14, Hgb 15.0, Hct 44.5, MCV 86.6, MCH 29.2, MCHC 33.7, RDW Std Deviation 43.5, RDW Coeff of Chucky 13.7, Plt Count 284, MPV 9.5, Immature Gran % (Auto) 0.300, Neut % (Auto) 68.9, Lymph % (Auto) 20.4, [place] % (Auto) 9.9, Eos % (Auto) 0.1, Baso % (Auto) 0.4, Absolute Neuts (auto) 7.7, Absolute Lymphs (auto) 2.29, Nucleated RBC % 0 08/07/20 02:50: Sodium 140, Potassium 3.6, Chloride 104, Carbon Dioxide 28.0, Anion Gap 8, BUN 15, Creatinine 1.08, Estim Creat Clear Calc 101.83, Est GFR (MDRD) Af Amer 105, Est GFR (MDRD) Non-Af 86, BUN/Creatinine Ratio 13.9, Glucose 106, Calcium 9.4 08/07/20 02:50: Ethyl Alcohol < 3.0 08/07/20 02:50: Phosphorus 3.2 Discharge Diet: No Restrictions Home Medications: Medications to take at Discharge NK 08/06/20 Primary Care Physician: Care Physician,No Primary [Primary Care Provider] - Disposition: Against Medical Advice Minutes spent on discharge:: 40 Medical Necessity - Tobacco Use Smoking Status: Current every day smoker Tobacco Use: Cigarettes Meaningful Use Info Meaningful Use Diagnoses (Choose all that apply): None applicable OBSV E&M: 34751 Observ/hosp same date L2
== END 2020-08-07 12:52 | disposition left against medical advice (07) ==
LOC: ED 03:14 → ICU 07:24 → MS3 08-08 07:34
PROVIDERS: Admitting Provider Family Medicine; Emergency Provider Emergency Medicine; Visit Provider Student in an Organized Health Care Education/Training Program
DX: F10.239 Alcohol dependence with withdrawal, unspecified (principal); F15.10 Other stimulant abuse, uncomplicated; Z86.16 Personal history of COVID-19; F17.210 Nicotine dependence, cigarettes, uncomplicated; Z59.0 Homelessness; K02.9 Dental caries, unspecified; F22 Delusional disorders; R07.9 Chest pain, unspecified; R45.1 Restlessness and agitation; R00.0 Tachycardia, unspecified
CPT/HCPCS: 71275; 80048; 80307; 82077; 84100; 84484; 85025; 93005; 96361; 96372; 96374; 99218; 99284; 99285; 99406; J7030; J7120; Q9967; A4216; G0378; J3486

== ENCOUNTER 2020-11-04 16:04 | Emergency (ER) | payer MEDICAID, SELFPAY ==
[2020-09-22 16:00] VITALS: BMI 27.3
[2020-11-04 16:05] VITALS: BP 119/73; PULSE 131; RESP 16; TEMP 36.4; O2SAT 97; BMI 32.5
[2020-11-04 16:07] VITALS: BP 119/73; PULSE 131; RESP 16; TEMP 36.4; O2SAT 99
--- NOTE | 2020-11-04 16:18 | CT_ITS ---
STUDY: CT LUMBAR SPINE WITHOUT CONTRAST REASON FOR EXAM: Male, 30 years old. back pain RADIATION DOSAGE (If Supplied By Facility): CTDIvol = ( 17.43 ) mGy, DLP = ( 497.67 ) mGycm TECHNIQUE: The patient was scanned in a multi detector CT scanner. High resolution transaxial imaging was performed. Images were obtained from T12 to S1. Sagittal and coronal images were reconstructed. Individualized dose optimization techniques were used for this CT. COMPARISON: None FINDINGS: Normal lumbar lordosis. There is no substantial scoliosis. Normal vertebrae of the lumbar spine. L1-2: Normal endplates. Normal disc height and morphology. Normal bilateral facet joints. Normal central canal and bilateral lateral recesses. Normal bilateral intervertebral neural foramina. L2-3: Normal endplates. Normal disc height and morphology. Normal bilateral facet joints. Normal central canal and bilateral lateral recesses. Normal bilateral intervertebral neural foramina. L3-4: Mild broad disc protrusion produces mild spinal stenosis and mild bilateral neural foraminal stenosis. L4-5: Mild broad disc protrusion produces mild spinal stenosis and mild bilateral neural foraminal stenosis. L5-S1: Mild broad disc protrusion produces mild spinal stenosis and mild bilateral neural foraminal stenosis. Normal visualized paraspinous soft tissue structures. CT/Spine Lumbar without Contrast IMPRESSION: Multilevel degenerative changes, as described above. Electronically Signed: Marco Sigala MD at 17:22 EDT Tel , Service support ,
--- NOTE | 2020-11-04 16:19 | ED.VIS.BACK ---
HPI History of Present Illness Chief Complaint: Back Narrative Narrative: 30-year-old male presents with concern for back pain. 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 States it is aching in nature. Worse with movement. Denies any numbness or tingling. Denies any fever, chills, IV drug abuse. Denies any saddle anesthesia. PFSH PFS Medical History Lab test negative for COVID-19 virus URI (upper respiratory infection) Home Medications NK 08/06/20 [History Last Taken Unknown] cyclobenzaprine 5 mg PO TID PRN #10 tab 11/04/20 [Rx Last Taken Unknown] methylprednisolone [Medrol (To)] 4 mg PO .once a day #21 tab 11/04/20 [Rx Last Taken Unknown] naproxen 500 mg PO BID #14 tab 11/04/20 [Rx Last Taken Unknown] Allergy/AdvReac Type Severity Reaction Status Date / Time No Known Allergies Allergy Unverified 08/06/20 17:23 Social History Smoking Status: Current every day smoker tobacco type: cigarettes alcohol intake: never ROS ROS ED Constitutional Constitutional ED: Denies chills, fever(s) or sweats Eyes Eyes: Denies blurry vision, change in vision or diplopia ENT ENT ED: Denies rhinorrhea or sore throat Cardiovascular Cardiovascular: Denies chest pain, orthopnea, palpitations or racing heartbeat Respiratory/Chest Respiratory/Chest: Denies cough, dyspnea, dyspnea on exertion, orthopnea or sputum Gastrointestinal Gastrointestinal: Denies abdominal pain, constipation, diarrhea, melena, nausea or vomiting Genitourinary Genitourinary ED: Denies dysuria, hematuria or urinary frequency Musculoskeletal Musculoskeletal: Reports back pain; Denies arthralgias, myalgias or neck pain Integumentary Denies rash Neurologic Neurologic: Denies headache(s), paresthesias or weakness Psychiatric Psychiatric: Denies anxiety or depression Hematologic/Lymphatic Hematologic/Lymphatic: Denies easy bleeding or easy bruising Allergic/Immunologic Allergic/Immunologic ED: Denies mouth swelling or tongue swelling EXAM Physical Exam Const Vital Signs: 11/04/20 16:05 11/04/20 16:07 Temperature 97.6 F L 97.6 F L Temperature Source Temporal Temporal Pulse Rate 131 H 131 H Respiratory Rate 16 16 Blood Pressure 119/73 119/73 Blood Pressure Mean 88 88 Pulse Ox 97 99 Oxygen Delivery Method Room Air Room Air Positive well nourished and well developed General Appearance ED: well developed HEENT Reports TM's clear and moist mucous membranes normocephalic and atraumatic Tympanic Membrane ED: Yes TM's clear Eyes PERRL and EOMs intact bilaterally Neck no lymphadenopathy, supple and no JVD Chest Wall inspection of chest normal Resp normal respiratory effort and clear to auscultation bilaterally Cardio regular rate, S1 normal heart sound, S2 normal heart sound and no murmurs Peripheral Pulses: pulses 2+ throughout GI soft to palpation, non-tender and non-distended Back/Spine no CVA tenderness Back/Spine Narrative: Tenderness to palpation in the lumbar midline. No overlying skin changes. No significant pain in flexion or extension. Extremity normal to inspection General Extremety ED: Negative for edema or tenderness General Extremity: Negative for edema Neuro oriented x3, CN's II-XII intact bilaterally and no sensory deficits noted Sensorium / Orientation: alert Motor Exam: strength 5/5 throughout Psych mental status grossly normal Skin no rashes or lesions noted MDM MDM MDM Narrative Medical decision making narrative: Patient appears well nontoxic. No red flag symptoms for cauda equina syndrome. CT of the spine without contrast shows evidence of disc herniation with mild spinal stenosis. Patient was given Toradol and cyclobenzaprine in the emergency department with pain reduction. Patient be placed on Medrol Dosepak, cyclobenzaprine, Naprosyn for home. Given limited work restrictions until Tuesday. Asked to follow-up with primary care. Stable at time of discharge. Radiography Diagnostic Testing: Radiology Impression Lumbar Spine CT 11/04/20 16:18 IMPRESSION: Multilevel degenerative changes, as described above. Electronically Signed: Marco Sigala MD at 17:22 EDT Tel , Service support , Discharge Plan Triage Chief Complaint: Back ED Provider: Boyd Ingram Dx/Rx/DC Orders Clinical Impression: Disc herniation Instructions: ED Back Sprain/Strain Prescriptions: New naproxen 500 mg tablet 500 mg PO BID Qty: 14 RF: 0 cyclobenzaprine 5 mg tablet 5 mg PO TID PRN (Reason: muscle spasm) Qty: 10 RF: 0 methylprednisolone [Medrol (To)] 4 mg tablets,dose pack 4 mg PO .once a day Qty: 21 RF: 0 No Action NK RF: 0 Primary Care Provider: Care Physician,No Primary Referrals: Zak Gibson DO [NON-STAFF] - 2 Days Care Physician,No Primary [Primary Care Provider] - Disposition Disposition: Home, Self Care
[2020-11-04] MEDS: cycloBENZAPRine HCl 10 MG Tablet PO (16:35)
[2020-11-04] MEDS: Ketorolac 15 MG/ML Vial IM (16:35)
[2020-11-04 17:44] VITALS: BP 115/87; PULSE 128; RESP 16; O2SAT 99
== END 2020-11-04 17:45 | disposition home or self-care (01) ==
PROVIDERS: Emergency Provider Emergency Medicine
DX: M51.26 Other intervertebral disc displacement, lumbar region (principal); F17.210 Nicotine dependence, cigarettes, uncomplicated
CPT/HCPCS: 72131; 96372; 99283

== ENCOUNTER 2020-12-07 23:46 | Inpatient (IN) | payer MEDICAID, SELFPAY ==
[2020-12-07 23:47] VITALS: BP 168/101; PULSE 67; RESP 18; TEMP 36.4; O2SAT 98; BMI 31.7
--- NOTE | 2020-12-07 23:47 | ED.RN ---
Pt pulse ox shows hrt 140s. resp notified for ekg. Md at bedside and aware
[2020-12-08] VITALS (8 sets, daily range): BP systolic 93–146; BP diastolic 62–99; PULSE 67–129; RESP 16–18; TEMP 36.4–36.9; O2SAT 96–100; BMI 31.9
--- NOTE | 2020-12-08 00:10 | EDS_ITS ---
HPI History of Present Illness Chief Complaint: Substance Abuse Informant: patient Narrative Narrative: Patient presents with complaints of lower back pain. He states he was seen here recently. He needs a note for work tomorrow because he complains of back pain all the time. He states he can get in certain positions where his back is better. However, he does a lot of bending at work and this bothers his back. [facility] Medical History (Updated 12/08/20 @ 02:52 by Lyla Hackett) Lab test negative for COVID-19 virus Smoker Substance abuse URI (upper respiratory infection) Home Medications naproxen [Naprosyn] 500 mg PO BID PRN #14 tab 12/08/20 [Rx Last Taken Unknown] Allergy/AdvReac Type Severity Reaction Status Date / Time No Known Allergies Allergy Unverified 12/07/20 23:49 Social History Smoking Status: Current every day smoker tobacco type: cigarettes alcohol intake: never ROS ROS ED Constitutional Constitutional ED: Denies chills or fever(s) Eyes Eyes: Denies blurry vision Cardiovascular Cardiovascular: Reports other Details: Patient denies palpitations despite having heart rate in the 130s. ; Denies chest pain or palpitations Respiratory/Chest Respiratory/Chest: Denies dyspnea, dyspnea on exertion or sputum Gastrointestinal Gastrointestinal: Denies abdominal pain, diarrhea, nausea or vomiting Genitourinary Genitourinary ED: Denies dysuria Musculoskeletal Musculoskeletal: Reports back pain; Denies neck pain Integumentary Denies rash Neurologic Neurologic: Denies headache(s), paresthesias or weakness Psychiatric Psychiatric: Denies anxiety or depression Endocrine Endocrinology: Denies polyuria Hematologic/Lymphatic Hematologic/Lymphatic: Denies easy bleeding or easy bruising EXAM Physical Exam Const Vital Signs: 12/07/20 23:47 12/08/20 00:27 12/08/20 01:47 Temperature 97.5 F L 97.5 F L Temperature Source Temporal Temporal Pulse Rate 67 129 H 129 H Respiratory Rate 18 18 18 Blood Pressure 168/101 H 146/99 H 146/99 H Blood Pressure Mean 123 114 114 Pulse Ox 98 99 99 Oxygen Delivery Method Room Air Room Air Positive well nourished and well developed General Appearance ED: well developed HEENT Reports dry mucous membranes HEENT Narrative: Mildly dry mucous membranes Negative for trauma Mouth ED: Yes dry mucous membranes Mouth: dry mucous membranes Eyes PERRL; Negative for EOMs intact bilaterally Neck supple Resp normal respiratory effort and clear to auscultation bilaterally Cardio regular rhythm Rate: tachycardic GI normal to inspection, nondistended, normoactive bowel sounds, soft to palpation, non-tender, non-distended and no masses Back/Spine normal to inspection Back/Spine Narrative: Patient has some very mild paraspinal lumbar tenderness down low. But he is able to stand up from a sitting position by himself. He can stand on his toes. Achilles reflex and patellar reflexes are about 1+ but they are equal. No sensory loss. General Back: Negative for CVA tenderness Extremity normal to inspection General Extremety ED: Negative for edema or tenderness General Extremity: Negative for edema Psych Psych Narrative: Patient is a little preoccupied. He states he is having trouble focusing because he took a few Adderall just recently. Skin no rashes or lesions noted MDM MDM MDM Narrative Medical decision making narrative: Patient presents requesting a work note. He has no numbness tingling weakness or radicular symptoms. He is denying bowel or bladder symptoms. I explained to the patient that his heart rate is very fast. He did not want anything done to this. I at least got him to agree to get a EKG that does verify this is a sinus tachycardia. This was suspected but I wanted to get better verification. I think this is likely due to his Adderall use. He also has a long history of methamphetamine use. He also has a history of alcohol use but denies drinking now. He denies any injection of drugs at all. He has not had fevers or chills. He had a CAT scan of his back recently. His exam is actually unremarkable other than the fact that he is tachycardic and seems preoccupied likely all due to chemicals that he is chosen to take. I do not want to give him prescriptions for anything addictive. I will offer nonsteroidal. He was happy with of note for work for light duty. He really does not want work-up for his high heart rate. At his last visit it looks like his heart rate was 131 also. I think this patient would do well to get further treatment for drug use. He does have evidently a sponsor that he is talking to. Patient was talking to a sponsor. He realized he really does need treatment for his drug use. He now does admit that he has been using meth Adderall as well as fentanyl. He still denies any injections though. He would like to get detox. I have initiated blood work and evaluation for this. I discussed case with the hospitalist. He will talk with the patient. If meth is his only drug of choice he may need more outpatient therapy. We are pending this evaluation. Lab Data Attestation: I reviewed the patient's lab results. Labs: Laboratory Results - last 24 hr 12/08/20 12/08/20 12/08/20 00:40 00:40 00:40 WBC 13.1 H RBC 5.15 Hgb 14.8 Hct 43.4 MCV 84.3 MCH 28.7 MCHC 34.1 RDW Std Deviation 40.4 RDW Coeff of Chucky 13.1 Plt Count 283 MPV 9.8 Immature Gran % (Auto) 0.300 Neut % (Auto) 72.9 H Lymph % (Auto) 18.2 L [place] % (Auto) 8.0 Eos % (Auto) 0.3 Baso % (Auto) 0.3 Absolute Neuts (auto) 9.6 H Absolute Lymphs (auto) 2.38 Nucleated RBC % 0 Sodium 137 Potassium 3.4 L Chloride 107 Carbon Dioxide 23.0 Anion Gap 7 BUN 11 Creatinine 1.14 Estim Creat Clear Calc 96.47 Est GFR (MDRD) Af Amer 98 Est GFR (MDRD) Non-Af 81 BUN/Creatinine Ratio 9.6 L Glucose 131 H Calcium 8.9 Total Bilirubin 0.50 AST 37 ALT 82 H Alkaline Phosphatase 81 Total Protein 7.9 Albumin 4.5 Globulin 3.4 Albumin/Globulin Ratio 1.3 TSH 0.93 Urine Opiates Screen Urine Methadone Screen Ur Barbiturates Screen Ur Phencyclidine Scrn Ur Amphetamines Screen U Methamphetamin-MDMA U Benzodiazepines Scrn Urine Cocaine Screen U Cannabinoids Screen Ur Drug Screen Comment Ethyl Alcohol < 3.0 12/08/20 00:40 WBC RBC Hgb Hct MCV MCH MCHC RDW Std Deviation RDW Coeff of Chucky Plt Count MPV Immature Gran % (Auto) Neut % (Auto) Lymph % (Auto) [place] % (Auto) Eos % (Auto) Baso % (Auto) Absolute Neuts (auto) Absolute Lymphs (auto) Nucleated RBC % Sodium Potassium Chloride Carbon Dioxide Anion Gap BUN Creatinine Estim Creat Clear Calc Est GFR (MDRD) Af Amer Est GFR (MDRD) Non-Af BUN/Creatinine Ratio Glucose Calcium Total Bilirubin AST ALT Alkaline Phosphatase Total Protein Albumin Globulin Albumin/Globulin Ratio TSH Urine Opiates Screen NEGATIVE Urine Methadone Screen NEGATIVE Ur Barbiturates Screen NEGATIVE Ur Phencyclidine Scrn NEGATIVE Ur Amphetamines Screen POSITIVE H U Methamphetamin-MDMA POSITIVE H U Benzodiazepines Scrn NEGATIVE Urine Cocaine Screen NEGATIVE U Cannabinoids Screen POSITIVE H Ur Drug Screen Comment Ethyl Alcohol EKG Initial EKG: Comments: EKG done for tachycardia read by me shows sinus tachycardia rhythm with a rate of 138. No ventricular ectopy. ND interval, QRS duration and QTc normal. Discharge Plan Dx/Rx/DC Orders Clinical Impression: Lumbar back pain Disposition Disposition: Acute Care Hospital [facility] Discharge Date/Time: 12/08/20 02:36
--- NOTE | 2020-12-08 00:32 | EKG12_ITS ---
Test Reason : HIGH HR Blood Pressure : / mmHG Vent. Rate : 138 BPM Atrial Rate : 138 BPM P-R Int : 142 ms QRS Dur : 086 ms QT Int : 276 ms P-R-T Axes : 039 038 032 degrees QTc Int : 418 ms Sinus tachycardia Otherwise normal ECG Confirmed by MATHEW BECKFORD, LIBRA ([id number]), social media editor ERNIE FISCHER ([id number]) on 12/09/2020 9:45:55 AM Referred By: BOB Confirmed By:LIBRA CARMONA MD
[2020-12-08 00:53] LABS: Absolute Lymphocyte Count 2.38 X10^3/uL (0.83-4.51); Absolute Neutrophil Count 9.6 X10^3/uL (2.0-7.7); Basophil# 0.04 X10^3/uL; Basophil% 0.3 % (0-1); Eosinophil# 0.04 X10^3/uL; Eosinophils% 0.3 % (0-5); Hematocrit 43.4 % (40-54); Hemoglobin 14.8 g/dL (13.0-16.5); Lymphocyte # 2.38 X10^3/ul (0.83-4.51); Lymphocyte % 18.2 % (19-41); Mean Corp Hgb Conc 34.1 g/dL (32-36); Mean Corpuscular Hgb 28.7 pg (27.0-32.0); Mean Corpuscular Volume 84.3 fL (80-94); Mean Platelet Vol. 9.8 fl (6.2-12.0); Monocyte# 1.05 X10^3/uL; NRBC Flagged by Analyzer 0 % (0-5); Neutrophil # 9.55 X10^3/uL (2.7-7.7); Neutrophil % 72.9 % (47-70); Platelet Count 283 K/mm3 (150-450); RBC Distribution Width CV 13.1 % (11.6-14.6); RBC Distribution Width SD 40.4 fl (35.1-43.9); Red Blood Count 5.15 M/mm3 (4.6-6.2); White Blood Count 13.1 K/mm3 (4.4-11.0)
[2020-12-08 01:16] LABS: Alcohol, Blood (Medical)-Serum < 3.0 mg/dL; Amphetamine Urine VISTA POSITIVE (<1000 ng/mL); Barbiturate Urine VISTA NEGATIVE (< 200 ng/mL); Benzodiazepine Urine VISTA NEGATIVE (< 200 ng/mL); Cocaine Urine VISTA NEGATIVE (< 300 ng/mL); Ecstacy Urine VISTA POSITIVE (< 500 ng/mL); Methadone Urine VISTA NEGATIVE (< 300 ng/mL); PCP Urine VISTA NEGATIVE (< 25 ng/mL); THC Urine VISTA POSITIVE (< 50 ng/mL); Vista UDS pH Range 5
[2020-12-08 01:20] LABS: ALB/GLOB Ratio 1.3 RATIO (0.9-2.4); AST(SGOT) 37 U/L (15-37); Alanine Aminotransfer ALT/SGPT 82 U/L (16-61); Albumin, Serum 4.5 g/dL (3.2-5.0); Alkaline Phosphatase 81 U/L (45-117); Anion Gap 7 (5-15); BUN 11 mg/dL (7-18); BUN/Creat Ratio 9.6 RATIO (10-20); Calcium,Total 8.9 mg/dL (8.5-10.1); Chloride 107 mmol/L (98-107); Creatinine, Serum 1.14 mg/dL (0.70-1.30); EST Glomerular Filtration Rate 81 mL/min (>60); Est Glom Filt Rate - Afr Amer 98 mL/min (>60); Estimated Creatinine Clearance 96.47 ml/min; Globulin 3.4 g/dL (2.2-4.2); Glucose 131 mg/dL (74-106); Potassium 3.4 mmol/L (3.5-5.1); Protein, Total 7.9 g/dL (6.4-8.2); Sodium Level 137 mmol/L (136-145); Thyroid Stim Hormone (TSH) 0.93 uIU/mL (0.358-3.74)
[2020-12-08] MEDS: Potassium Chloride Oral Tablet 20 MEQ PO (01:42)
--- NOTE | 2020-12-08 02:02 | PCM.HP.STD ---
HPI - General General Date of Admission: 12/08/20 Date of Service: 12/08/20 Chief Complaint: Desire for detoxification HPI Narrative ADEEL MICHELE, is a 30 M with a significant history of tobacco abuse; IV drug use who is requesting detoxification. Originally he presented to the emergency department under the guise of getting a work excuse for back pain. Because he was tachycardic upon further questioning by emergent department doctor patient admitted that he uses methamphetamine although he initially stated that he uses Adderall. At the time of my examination patient denied any Adderall use but admits that indeed he uses methamphetamine. He mixes methamphetamine with fentanyl. Reportedly he has been using for about 10 years but reportedly was sober about 6 months ago and only resumed using about 2 to 3 days ago. Last time he used was on the same day of presentation. At the time of examination he reported that he had just started to have withdrawal symptoms. He reported withdrawal symptoms as nausea and muscle aches. He reports that he is paranoid. He reported he uses just about a gram of fentanyl per day. Also patient reports drinking alcohol. He reports reports drinking about 2 tall cans of beer per day. Last drink was on the same day of presenting. Patient has been drinking for about 10 years. He sees himself as an alcoholic. He thinks that if he does not drink for a day or 2 he will begin to shake. In regards to his back pain he said that it is minor and indeed he is not worried about it. [facility] Medical History (Updated 12/08/20 @ 02:52 by Lyla Hackett) Lab test negative for COVID-19 virus Smoker Substance abuse URI (upper respiratory infection) Home Medications naproxen [Naprosyn] 500 mg PO BID PRN #14 tab 12/08/20 [Rx Last Taken Unknown] Allergy/AdvReac Type Severity Reaction Status Date / Time No Known Allergies Allergy Unverified 12/07/20 23:49 Social History Smoking Status: Current every day smoker tobacco type: cigarettes alcohol intake: never ROS ROS Narrative Constitutional: Denies anorexia and change in weight Eyes: Denies blurry vision, change in eye color, change in vision, discharge from eye(s), double vision, erythema, eye pain, loss of vision or other HEENT: Denies abnormal hearing, dysphagia, ear pain, epistaxis, headache(s), hearing loss, nasal congestion, nasal discharge, post nasal drip, sinus pressure, sore throat or other Cardiovascular: Denies chest pain. Denies dyspnea on exertion, orthopnea and paroxysmal nocturnal dyspnea Respiratory/Chest: Denies cough, excessive phlegm production, shortness of breath with exertion and wheezing Gastrointestinal: Reports nausea. Denies abdominal pain, coffee ground emesis, constipation, diarrhea, dyspepsia, hematemesis, hematochezia, loose stools, melena, vomiting or other Genitourinary: Denies burning urination, difficulty urinating, dysuria, hematuria, nocturia, urinary frequency, urinary hesitancy, urinary incontinence, urinary urgency or other Musculoskeletal: Reports back pain and muscle aches. Neurologic: Denies abnormal gait, abnormal speech, confusion, disequilibrium, dizziness, focal weakness, headache(s), numbness, paresthesias, seizure-like activity, seizures, syncope, tingling, tremor(s) or other Psychiatric: Reports paranoia. Denies homicidal ideation, suicidal ideation or other Endocrinology: Denies change in body appearance, cold intolerance, excessive sweating, heat intolerance, polydipsia, polyuria or other Hematologic/Lymphatic: Denies anemia, easy bleeding, easy bruising, lymphadenopathy or other Integumentary: Denies ulcer on buttocks. Allergic/Immunologic: Denies rhinitis, hives, eczema, asthma or other Vital Signs Vital Signs Vital Signs: 12/07/20 23:47 12/08/20 00:27 12/08/20 01:47 Temperature 97.5 F L 97.5 F L Temperature Source Temporal Temporal Pulse Rate 67 129 H 129 H Respiratory Rate 18 18 18 Blood Pressure 168/101 H 146/99 H 146/99 H Blood Pressure Mean 123 114 114 Pulse Ox 98 99 99 Oxygen Delivery Method Room Air Room Air 12/08/20 02:01 Temperature 97.5 F L Temperature Source Temporal Pulse Rate 129 H Respiratory Rate 16 Blood Pressure 146/99 H Blood Pressure Mean 114 Pulse Ox 99 Oxygen Delivery Method Room Air Weight Weight: 97.5 kg Body Mass Index (BMI) 31.7 Physical Exam Narrative Physical exam: General: Well-nourished, well-developed, no acute distress Head: Normocephalic, atraumatic, no tenderness Eyes: PERRLA, EOMI ENT, no trauma, moist mucous membranes, no rhinorrhea Neck: Nontender, full range of motion, no spinal tenderness, deformities, step-off CVS: Tachycardia. S1-S2 present. Respiratory no acute distress, clear to auscultation bilaterally, chest wall nontender, no wheezing Abdomen: Soft, nontender, nondistended, normal bowel sounds, no masses : Deferred Extremities: Nontender full range of motion, no trauma Skin: Normal color, no trauma, abrasions Neuro: Alert, oriented, cranial nerves II through XII grossly intact. Psychiatry: Patient moving head around and staring into space. Results Lab / Micro Data Result Diagrams: 12/08/20 00:40 12/08/20 00:40 Labs: Laboratory Results - last 24 hr 12/08/20 00:40: WBC 13.1 H, RBC 5.15, Hgb 14.8, Hct 43.4, MCV 84.3, MCH 28.7, MCHC 34.1, RDW Std Deviation 40.4, RDW Coeff of Chucky 13.1, Plt Count 283, MPV 9.8, Immature Gran % (Auto) 0.300, Neut % (Auto) 72.9 H, Lymph % (Auto) 18.2 L, [place] % (Auto) 8.0, Eos % (Auto) 0.3, Baso % (Auto) 0.3, Absolute Neuts (auto) 9.6 H, Absolute Lymphs (auto) 2.38, Nucleated RBC % 0 12/08/20 00:40: Ethyl Alcohol < 3.0 12/08/20 00:40: Sodium 137, Potassium 3.4 L, Chloride 107, Carbon Dioxide 23.0, Anion Gap 7, BUN 11, Creatinine 1.14, Estim Creat Clear Calc 96.47, Est GFR (MDRD) Af Amer 98, Est GFR (MDRD) Non-Af 81, BUN/Creatinine Ratio 9.6 L, Glucose 131 H, Calcium 8.9, Total Bilirubin 0.50, AST 37, ALT 82 H, Alkaline Phosphatase 81, Total Protein 7.9, Albumin 4.5, Globulin 3.4, Albumin/Globulin Ratio 1.3, TSH 0.93 12/08/20 00:40: Urine Opiates Screen NEGATIVE, Urine Methadone Screen NEGATIVE, Ur Barbiturates Screen NEGATIVE, Ur Phencyclidine Scrn NEGATIVE, Ur Amphetamines Screen POSITIVE H, U Methamphetamin-MDMA POSITIVE H, U Benzodiazepines Scrn NEGATIVE, Urine Cocaine Screen NEGATIVE, U Cannabinoids Screen POSITIVE H, Ur Drug Screen Comment Assessment & Plan Assessment/Plan (1) Opioid abuse: (2) Methamphetamine use: (3) Tobacco use: (4) Alcohol abuse: PLAN: Alcohol dependence and desire for detoxification Patient be started on phenobarbital and other adjunctive medications: Gabapentin as needed; dicyclomine as needed; Vistaril as needed; Imodium as needed; trazodone as needed; Zofran as needed; scheduled thiamine; and schedule folic acid. Monitor CIWA score Opioid dependence and withdrawal Patient be started on Subutex and other adjunctive medications as above; methocarbamol as needed; clonidine as needed; and Imodium as needed Monitor COWS and CINA score Tobacco abuse Counseled Nicotine patch prescribed. Methamphetamine abuse Counseled DVT prophylaxis Low risk Encourage to ambulate Charges/Coding Visit Charges Inpatient E&M: 49772 Init Hosp L3
--- NOTE | 2020-12-08 02:52 | NURSING ---
pt states he doens't take any medications at this time. pt states he has something wrong with his mind but he doesn't remember the diagnosis
[2020-12-08] MEDS: Phenobarbital 32.4 MG Tablet 64.8 MG PO ×6 (03:40→22:45)
[2020-12-08] MEDS: Thiamine Hydrochloride 100 MG Tablet PO (08:19)
[2020-12-08] MEDS: Folic Acid 1 MG Tablet PO (08:19)
--- NOTE | 2020-12-08 09:30 | PCM.PN.HOSP ---
Subjective Subjective Patient is a 30-year-old gentleman with history of polysubstance abuse including alcohol and opiate admitted for medical stabilization Objective Data Objective Data Vital Signs: Vital Signs Temp Pulse Resp BP Pulse Ox 98.2 F 87 16 109/69 96 12/08/20 08:09 12/08/20 08:09 12/08/20 08:09 12/08/20 08:09 12/08/20 08:09 Oxygen Delivery Method Room Air Weight: 98.2 kg Body Mass Index (BMI) 31.9 Intake & Output: Intake and Output for Last 24 Hours 12/06/20 12/07/20 12/08/20 23:59 23:59 23:59 Intake Total 400 / 400 Balance 400 / 400 Lab / Micro Data Result Diagrams: 12/08/20 00:40 12/08/20 00:40 Labs: Laboratory Results - last 24 hr 12/08/20 00:40: WBC 13.1 H, RBC 5.15, Hgb 14.8, Hct 43.4, MCV 84.3, MCH 28.7, MCHC 34.1, RDW Std Deviation 40.4, RDW Coeff of Chucky 13.1, Plt Count 283, MPV 9.8, Immature Gran % (Auto) 0.300, Neut % (Auto) 72.9 H, Lymph % (Auto) 18.2 L, [place] % (Auto) 8.0, Eos % (Auto) 0.3, Baso % (Auto) 0.3, Absolute Neuts (auto) 9.6 H, Absolute Lymphs (auto) 2.38, Nucleated RBC % 0 12/08/20 00:40: Ethyl Alcohol < 3.0 12/08/20 00:40: Sodium 137, Potassium 3.4 L, Chloride 107, Carbon Dioxide 23.0, Anion Gap 7, BUN 11, Creatinine 1.14, Estim Creat Clear Calc 96.47, Est GFR (MDRD) Af Amer 98, Est GFR (MDRD) Non-Af 81, BUN/Creatinine Ratio 9.6 L, Glucose 131 H, Calcium 8.9, Total Bilirubin 0.50, AST 37, ALT 82 H, Alkaline Phosphatase 81, Total Protein 7.9, Albumin 4.5, Globulin 3.4, Albumin/Globulin Ratio 1.3, TSH 0.93 12/08/20 00:40: Urine Opiates Screen NEGATIVE, Urine Methadone Screen NEGATIVE, Ur Barbiturates Screen NEGATIVE, Ur Phencyclidine Scrn NEGATIVE, Ur Amphetamines Screen POSITIVE H, U Methamphetamin-MDMA POSITIVE H, U Benzodiazepines Scrn NEGATIVE, Urine Cocaine Screen NEGATIVE, U Cannabinoids Screen POSITIVE H, Ur Drug Screen Comment Physical Exam Narrative GENERAL: cooperative HEENT: Atraumatic; EYES; Anicteric, Normal Conjunctiva NECK; supple, normal thyroid, RESPIRATORY: Diminished to auscultation CARDIOVASCULAR: Regular S1 S2, GI: soft, normoactive bowel sounds, : No Renal angle tenderness; EXTREMITIES: No edema, no clubbing, MUSCULOSKELETAL: no muscle waisting NEURO: Awake; no lateralizing signs. SKIN: No Rash PSYCH; Flat affect Assessment & Plan Assessment/Plan (1) Opioid abuse: (2) Methamphetamine use: (3) Tobacco use: (4) Alcohol abuse: PLAN: Patient is a 30-year-old gentleman with history of polysubstance abuse including alcohol and opiate admitted for medical stabilization 1. Alcohol dependence with desire for detoxification ?Admitted to regular nursing floor for medical stabilization using phenobarb 2. Chronic opioid dependence with acute opioid withdrawal ?Admitted to regular nursing floor for medical stabilization using Subutex 3. Polysubstance abuse including opioid methamphetamine as well as tobacco ?Counseled on cessation 4. DVT prophylaxis low risk -did encourage early ambulation Charges/Coding Visit Charges Inpatient E&M: 02707 Subs Hosp L2
[2020-12-08] MEDS: Loperamide 2 MG Capsule PO (15:38)
[2020-12-08] MEDS: traZODone 100 MG Tablet PO (22:45)
[2020-12-09] MEDS: Phenobarbital 32.4 MG Tablet 64.8 MG PO ×6 (03:13→22:40)
[2020-12-09 03:14] VITALS: BP 103/58; PULSE 57; RESP 18; TEMP 36.8; O2SAT 97
--- NOTE | 2020-12-09 07:33 | PCM.PN.HOSP ---
Subjective Subjective Patient seen had a relatively uneventful night. Diagnostic data reviewed significant for potassium 3.4 Objective Data Objective Data Vital Signs: Vital Signs Temp Pulse Resp BP Pulse Ox 98.2 F 57 L 18 103/58 L 97 12/09/20 03:14 12/09/20 03:14 12/09/20 03:14 12/09/20 03:14 12/09/20 03:14 Oxygen Delivery Method Room Air Weight: 98.2 kg Body Mass Index (BMI) 31.9 Intake & Output: Intake and Output for Last 24 Hours 12/07/20 12/08/20 12/09/20 23:59 23:59 23:59 Intake Total 400 / 1200 1400 / 1400 Balance 400 / 1200 1400 / 1400 Lab / Micro Data Result Diagrams: 12/08/20 00:40 12/08/20 00:40 Physical Exam Narrative GENERAL: cooperative HEENT: Atraumatic; EYES; Anicteric, Normal Conjunctiva NECK; supple, normal thyroid, RESPIRATORY: Diminished to auscultation CARDIOVASCULAR: Regular S1 S2, GI: soft, normoactive bowel sounds, : No Renal angle tenderness; EXTREMITIES: No edema, no clubbing, MUSCULOSKELETAL: no muscle waisting NEURO: Awake; no lateralizing signs. SKIN: No Rash PSYCH; Flat affect Assessment & Plan Assessment/Plan (1) Opioid abuse: (2) Methamphetamine use: (3) Tobacco use: (4) Alcohol abuse: PLAN: Patient is a 30-year-old gentleman with history of polysubstance abuse including alcohol and opiate admitted for medical stabilization 1. Alcohol dependence with desire for detoxification ?Admitted to regular nursing floor for medical stabilization using phenobarb 2. Chronic opioid dependence with acute opioid withdrawal ?Admitted to regular nursing floor for medical stabilization using Subutex 3. Polysubstance abuse including opioid methamphetamine as well as tobacco ?Counseled on cessation 4. DVT prophylaxis low risk -did encourage early ambulation 5. Hypokalemia ?Corrected per protocol Charges/Coding Visit Charges Inpatient E&M: 43593 Subs Hosp L2
[2020-12-09 07:51] VITALS: BP 108/54; PULSE 70; RESP 16; TEMP 36.7; O2SAT 98
[2020-12-09] MEDS: Folic Acid 1 MG Tablet PO (07:55)
[2020-12-09] MEDS: Thiamine Hydrochloride 100 MG Tablet PO (07:55)
[2020-12-09] MEDS: Potassium Chloride Oral Tablet 20 MEQ 40 MEQ PO (08:33)
--- NOTE | 2020-12-09 09:49 | ADDICTION ---
This resume writer attempted to meet with PT. PT did not rouse to 3x attempts at verbal queuing. This resume writer will attempt to meet with PT on 12/10/20.
[2020-12-09 15:00] VITALS: BP 113/61; PULSE 65; RESP 16; TEMP 37.2; O2SAT 98
[2020-12-09] MEDS: traZODone 100 MG Tablet PO (22:41)
[2020-12-09 22:43] VITALS: BP 104/58; PULSE 64; RESP 18; TEMP 36.9; O2SAT 97
[2020-12-10] MEDS: Phenobarbital 32.4 MG Tablet 64.8 MG PO ×2 (03:52→06:33)
[2020-12-10 04:00] VITALS: BP 96/43; PULSE 58; RESP 16; TEMP 36.8; O2SAT 96
--- NOTE | 2020-12-10 07:49 | PCM.PN.HOSP ---
Subjective Subjective Patient seen uneventful night. Questing to be discharged home Objective Data Objective Data Vital Signs: Vital Signs Temp Pulse Resp BP Pulse Ox 98.2 F 58 L 16 96/43 L 96 12/10/20 04:00 12/10/20 04:00 12/10/20 04:00 12/10/20 04:00 12/10/20 04:00 Oxygen Delivery Method Room Air Weight: 98.2 kg Body Mass Index (BMI) 31.9 Intake & Output: Intake and Output for Last 24 Hours 12/08/20 12/09/20 12/10/20 23:59 23:59 23:59 Intake Total 400 / 1200 1400 / 2200 800 / 800 Balance 400 / 1200 1400 / 2200 800 / 800 Lab / Micro Data Result Diagrams: 12/08/20 00:40 12/08/20 00:40 Physical Exam Narrative GENERAL: cooperative HEENT: Atraumatic; EYES; Anicteric, Normal Conjunctiva NECK; supple, normal thyroid, RESPIRATORY: Diminished to auscultation CARDIOVASCULAR: Regular S1 S2, GI: soft, normoactive bowel sounds, : No Renal angle tenderness; EXTREMITIES: No edema, no clubbing, MUSCULOSKELETAL: no muscle waisting NEURO: Awake; no lateralizing signs. SKIN: No Rash PSYCH; Flat affect Assessment & Plan Assessment/Plan (1) Opioid abuse: (2) Methamphetamine use: (3) Tobacco use: (4) Alcohol abuse: PLAN: Patient is a 30-year-old gentleman with history of polysubstance abuse including alcohol and opiate admitted for medical stabilization 1. Alcohol dependence with desire for detoxification ?Admitted to regular nursing floor for medical stabilization using phenobarb 2. Chronic opioid dependence with acute opioid withdrawal ?Admitted to regular nursing floor for medical stabilization using Subutex 3. Polysubstance abuse including opioid methamphetamine as well as tobacco ?Counseled on cessation 4. DVT prophylaxis low risk -did encourage early ambulation 5. Hypokalemia ?Corrected per protocol Charges/Coding Visit Charges Inpatient E&M: 23957 Subs Hosp L1
[2020-12-10] MEDS: Thiamine Hydrochloride 100 MG Tablet PO (08:49)
[2020-12-10] MEDS: Folic Acid 1 MG Tablet PO (08:49)
[2020-12-10 08:55] VITALS: BP 114/79; PULSE 69; RESP 16; TEMP 36.4; O2SAT 97
--- NOTE | 2020-12-10 08:57 | PCM.DC.SUM ---
Providers Date of Admission: 12/08/20 Primary Care Physician: Shyanne Primary Care Phys Reason For Visit: DESIRE FOR DETOXIFICATION Diagnosis Discharge Diagnosis (1) Opioid abuse: Status: Acute Code(s): F11.10 - Opioid abuse, uncomplicated (2) Methamphetamine use: Status: Chronic Code(s): F15.10 - Other stimulant abuse, uncomplicated (3) Tobacco use: Status: Chronic Code(s): Z72.0 - Tobacco use (4) Alcohol abuse: Status: Chronic Code(s): F10.10 - Alcohol abuse, uncomplicated Medications at Discharge Home Medications naproxen [Naprosyn] 500 mg PO BID PRN #14 tab 12/08/20 Hospital Course Summary of Care Provided Minutes Spent on Discharge: 35 Hospital Course: Patient is a 30-year-old gentleman with history of polysubstance abuse including alcohol and opiate admitted for medical stabilization 1. Alcohol dependence with desire for detoxification ?Admitted to regular nursing floor for medical stabilization using phenobarb 2. Chronic opioid dependence with acute opioid withdrawal ?Admitted to regular nursing floor for medical stabilization using Subutex 3. Polysubstance abuse including opioid methamphetamine as well as tobacco ?Counseled on cessation 4. DVT prophylaxis low risk -did encourage early ambulation 5. Hypokalemia ?Corrected per protocol Physical Exam Narrative GENERAL: cooperative HEENT: Atraumatic; EYES; Anicteric, Normal Conjunctiva NECK; supple, normal thyroid, RESPIRATORY: Diminished to auscultation CARDIOVASCULAR: Regular S1 S2, GI: soft, normoactive bowel sounds, PSYCH; Flat affect Weight / BMI Weight Weight: 98.2 kg Body Mass Index (BMI) 31.9 ABG / Lab / Microbiology Data Result Diagrams: 12/08/20 00:40 12/08/20 00:40 D/C Instructions Discharge Diet: No restrictions Discharge Activity: Return to Normal Activity Call your doctor if you observe: Fever of 101 or Higher, Shortness of breath, Fainting spells and Chest pain Meaningful Use Info Meaningful Use Diagnoses (Choose all that apply): None applicable Discharge Plan Admission Admit Date/Time: 12/08/20 02:01 Primary Reason for Your Visit: Acute opioid withdrawal Attending Provider: Chuck Hassan Primary Care Provider: Care Physician,Shyanne Primary Instructions Forms: Work Status Form Patient Instructions: ED Back Care Tips Discharge Orders/Prescriptions Prescriptions: New naproxen [Naprosyn] 500 mg tablet 500 mg PO BID PRN (Reason: pain) Qty: 14 RF: 0 Referrals / Follow Up: Ignacio Chase MD [STAFF PHYSICIAN] - 3-5 Days if not improving Care Physician,No Primary [Primary Care Provider] - Disposition Disposition (needs filled in before D/C Order can be placed): Home, Self Care Charges/Coding Visit Charges Inpatient E&M: 02410 Disch Hosp
--- NOTE | 2020-12-10 09:42 | ADDICTION ---
This marketing writer met [facility] PT to conduct ASAM, MSE, AUDIT, DUDIT assessments and to plan for d/c. PT A+Ox4. All assessments completed. PT plans to d/c to home and will f/u with [facility] for counseling independently. PT reports a history of treatment with [facility].
== END 2020-12-10 10:15 | disposition home or self-care (01) | DRG 773 ==
LOC: ED 12-08 00:30 → MS3 12-08 02:17
PROVIDERS: Admitting Provider Hospitalist; Emergency Provider Emergency Medicine; Visit Provider Internal Medicine
DX: F11.23 Opioid dependence with withdrawal (principal); F10.20 Alcohol dependence, uncomplicated; F19.10 Other psychoactive substance abuse, uncomplicated; F15.10 Other stimulant abuse, uncomplicated; M54.5 Low back pain; F17.210 Nicotine dependence, cigarettes, uncomplicated; E87.6 Hypokalemia
CPT/HCPCS: 80053; 80307; 82077; 84443; 85025; 93005; 99285; A4216

== ENCOUNTER 2020-12-11 12:45 | Emergency (ER) | payer MEDICAID, SELFPAY ==
[2020-12-08 02:54] VITALS: BMI 31.9
[2020-12-11] VITALS (7 sets, daily range): BP systolic 123–153; BP diastolic 70–104; PULSE 78–109; RESP 14–18; TEMP 36.5; O2SAT 96–98; BMI 31.0
--- NOTE | 2020-12-11 12:50 | CM.ED ---
BENEDICTO Note Referral Reason: Patient coming from [facility] related to meth use Referral Source: Abi, treatment navigator BENEDICTO received phone call from Abi ( Treatment Navigator at [facility] ). She said that patient reports he was discharged from [facility] this morning but Abi was unclear if it was for RAMP or the ED. Abi said that they called the squad on patient as he was really on edge and has used meth. BENEDICTO asked as to what patient was stating and Abi said i didn't ask him alot as he was really paranoid. Abi said I know you guys don't admit for meth but there is a place that he may be able to go. BENEDICTO asked if Abi is referencing [facility] [place] and Abi said yes. Abi said that patient has no ride if he needs meth detox and he was wearing jeans and we gave him some water. BENEDICTO updated MD and RN. BENEDICTO called Abi back to clarify as patient is currently not at the ED. Abi said that squad just left with patient. BENEDICTO asked if there would be anyone that could transport patient to detox facility such as [facility] and she said no due to her paranoia. Abi said that she is attempting to get patient in the residential program. Plan: To be determined Rowan IBANEZ
--- NOTE | 2020-12-11 15:12 | ED.RN ---
Pt very paranoid, denies any physical complaints, states I'm gonna in here. Re-assurance given to pt that he is not dying and is safe here in the Emergency Department. Pt reports he smoked meth today.
--- NOTE | 2020-12-11 15:36 | ED.RN ---
Pt noted to be looking under the bed, states there is something under there. Trying to move bed to look underneath. Pt states You have to get that bed out of here. Block me from the bed so you can get it out. Caryl RN in to assist with removing the bed. Pt states he needs to go somewhere behind this RN so that I am between him and the bed. Pt very watchful of his surroundings. Constantly looking out the window in the door to the hallway trying to get people to come in and help him.
--- NOTE | 2020-12-11 15:40 | EDS_ITS ---
HPI History of Present Illness Chief Complaint: Substance Abuse Informant: patient and mental health staff Narrative Narrative: Patient is a 30-year-old male with history of polysubstance abuse sent over from [facility] for concern of methamphetamine induced psychosis. Patient is acting very paranoid and admitted to using methamphetamine today. Patient was just discharged from our hospital yesterday for inpatient detox from alcohol and opioids. Patient is able to provide minimal history. When I spoke with him he states why this is happening to me and is also preoccupied with her being something underneath his bed. He was not reassured when I told him there was nothing underneath his bed. Patient denies any physical complaints at this time. No report of any homicidal suicidal ideations. [facility] Medical History Lab test negative for COVID-19 virus Smoker Substance abuse URI (upper respiratory infection) Home Medications naproxen [Naprosyn] 500 mg PO BID PRN #14 tab 12/08/20 [Rx Last Taken Unknown] Allergy/AdvReac Type Severity Reaction Status Date / Time No Known Allergies Allergy Verified 12/11/20 12:45 Social History Smoking Status: Current every day smoker tobacco type: cigarettes alcohol intake: never ROS ROS ED Review of Systems ROS Unobtainable: due to mental status EXAM Physical Exam Const Vital Signs: 12/11/20 12:45 12/11/20 12:51 12/11/20 16:00 Temperature 97.7 F L Temperature Source Temporal Pulse Rate 109 H 109 H Respiratory Rate 18 17 Blood Pressure 153/104 H 153/104 H 130/70 H Blood Pressure Mean 120 120 90 Pulse Ox 98 97 Oxygen Delivery Method Room Air Room Air 12/11/20 18:37 12/11/20 20:00 Temperature Temperature Source Pulse Rate 85 78 Respiratory Rate 14 15 Blood Pressure 133/91 H 123/89 H Blood Pressure Mean 105 100 Pulse Ox 98 96 Oxygen Delivery Method Room Air Room Air Positive well nourished and well developed General Appearance ED: well developed HEENT Reports moist mucous membranes atraumatic Eyes PERRL and EOMs intact bilaterally Eyes Narrative: Pupils mildly dilated Neck supple Chest Wall inspection of chest normal Resp normal respiratory effort Cardio Rate: tachycardic Extremity General Extremety ED: Negative for edema General Extremity: Negative for edema Neuro no sensory deficits noted Sensorium / Orientation: alert and oriented to person Motor Exam: strength 5/5 throughout Psych Negative for mental status grossly normal or thought process normal Appearance: grossly normal Attitude: paranoid and agitated Activity / Motor Behavior: fidgetting and avoids eye contact Speech: normal speech Mood & Affect: anxious Thought Process: disorganized Thought Content: delusion(s) Delusional Thought Content Details: Positive for paranoid Memory / Cognition: memory grossly impaired Insight: poor Judgement: poor Skin Lesions: no lesions Rashes: no rashes MDM MDM MDM Narrative Medical decision making narrative: Patient is evaluated for paranoia. Patient is acutely paranoid and minimally agitated. Patient I think he is able to appropriately care for himself. It is likely that this is methamphetamine induced. Patient does try to leave the ER and has to be restrained. He is given IM Geodon. Patient is medically cleared and is pending psych evaluation. Patient is medically cleared. He is accepted at [facility] for further psychiatric evaluation. Accepted by Dr. Montesinos. Lab Data Labs: Laboratory Results - last 24 hr 12/11/20 12/11/20 12/11/20 16:30 16:30 16:30 WBC 9.0 RBC 5.37 Hgb 15.5 Hct 46.1 MCV 85.8 MCH 28.9 MCHC 33.6 RDW Std Deviation 40.3 RDW Coeff of Chucky 13.0 Plt Count 264 MPV 9.9 Immature Gran % (Auto) 0.200 Neut % (Auto) 68.1 Lymph % (Auto) 23.3 Coos % (Auto) 7.8 Eos % (Auto) 0.4 Baso % (Auto) 0.2 Absolute Neuts (auto) 6.2 Absolute Lymphs (auto) 2.10 Nucleated RBC % 0 Sodium 135 L Potassium 3.4 L Chloride 101 Carbon Dioxide 25.0 Anion Gap 9 BUN 13 Creatinine 0.93 Estim Creat Clear Calc 118.26 Est GFR (MDRD) Af Amer 124 Est GFR (MDRD) Non-Af 103 BUN/Creatinine Ratio 14.0 Glucose 101 Calcium 9.1 Total Bilirubin 0.30 AST 25 ALT 63 H Alkaline Phosphatase 79 Total Creatine Kinase 259 Total Protein 8.2 Albumin 4.5 Globulin 3.7 Albumin/Globulin Ratio 1.2 Urine Opiates Screen Urine Methadone Screen Ur Barbiturates Screen Ur Phencyclidine Scrn Ur Amphetamines Screen U Methamphetamin-MDMA U Benzodiazepines Scrn Urine Cocaine Screen U Cannabinoids Screen Ur Drug Screen Comment Ethyl Alcohol 4.0 12/11/20 18:05 WBC RBC Hgb Hct MCV MCH MCHC RDW Std Deviation RDW Coeff of Chucky Plt Count MPV Immature Gran % (Auto) Neut % (Auto) Lymph % (Auto) Coos % (Auto) Eos % (Auto) Baso % (Auto) Absolute Neuts (auto) Absolute Lymphs (auto) Nucleated RBC % Sodium Potassium Chloride Carbon Dioxide Anion Gap BUN Creatinine Estim Creat Clear Calc Est GFR (MDRD) Af Amer Est GFR (MDRD) Non-Af BUN/Creatinine Ratio Glucose Calcium Total Bilirubin AST ALT Alkaline Phosphatase Total Creatine Kinase Total Protein Albumin Globulin Albumin/Globulin Ratio Urine Opiates Screen NEGATIVE Urine Methadone Screen NEGATIVE Ur Barbiturates Screen POSITIVE H Ur Phencyclidine Scrn NEGATIVE Ur Amphetamines Screen POSITIVE H U Methamphetamin-MDMA NEGATIVE U Benzodiazepines Scrn NEGATIVE Urine Cocaine Screen NEGATIVE U Cannabinoids Screen POSITIVE H Ur Drug Screen Comment Ethyl Alcohol Discharge Plan Triage Chief Complaint: Substance Abuse ED Provider: Sadie Helms Dx/Rx/DC Orders Clinical Impression: Methamphetamine use, Acute psychosis, Acute paranoia Prescriptions: No Action naproxen [Naprosyn] 500 mg tablet 500 mg PO BID PRN (Reason: pain) Qty: 14 RF: 0 Primary Care Provider: Care Physician,No Primary Referrals: Care Physician,No Primary [Primary Care Provider] - Disposition Disposition: Psychiatric Hospital or Unit Discharge Location: [facility]
--- NOTE | 2020-12-11 15:55 | ED.RN ---
PT CAME OUT OF THE ROOM TRYING TO LEAVE THE DEPARTMENT. STAFF ATTEMPTED TO TALK TO THE STAFF TO CALM HIM DOWN AND GET HIM BACK IN THE ROOM. PT STARTED RUNNING TOWARDS THE EXIT. PT STARTED TO RUN OUT THE EMS DOORS WHEN OFFICER EVERTON FROM [facility] WAS WALKING IN THE DOOR. THE PT WENT AND STOOD BY THE BENCH BETWEEN THE EMS ENTRANCE AND ER PUBLIC ENTRANCE. OFFICER EVERTON CALLED FOR ADDITIONAL OFFICERS. PT PULLED HIS PANTS DOWN AND STARTED MASTURBATING YELLING ARREST ME FOR PUBLIC INDECENCY TAKE ME TO INTERMEDIATE. PUT ME IN THE POLICE CAR. DON'T MAKE ME GO IN THE HOSPITAL. I'M GOING TO . OFFICER EVERTON ATTEMPT TO TALK TO THE PT AND GET HIM TO PULL HIS PANTS UP. WHILE TALKING TO THE PT THE PT BEGAN MASTURBATING AGAIN. PT STATES JUST TAKE ME TO INTERMEDIATE. OFFICER EVERTON PLACED THE PT IN HANDCUFFS ATTEMPTING TO GET HIM INTO THE HOSPITAL. PT BEGAN SHAKING HIS HIPS TO GET HIS SHORTS TO FALL DOWN. ADDITIONAL OFFICERS ARRIVED TO ASSIST. OFFICERS SAT THE PT IN A W/C. PT CONTINUES TO SAY TAKE ME TO INTERMEDIATE. WHAT IF I HIT YOU? TAKE ME TO INTERMEDIATE. PT ATTEMPTING TO GET OUT OF THE W/C. OFFICER EVERTON ASKED THIS NURSE TO BRING THE HOSPITAL BED OUTSIDE SO THE OFFICERS COULD LIFT HIM AND PUT HIM ON THE BED. I RETRIEVED A BED. THE OFFICERS LIFTED THE PT ONTO THE BED. ER STAFF WITH THE ASSISTANCE OF [facility] OFFICERS PLACED THE PT ANKLES IN LOCKED RESTRAINTS. PD OFFICER REMOVED THE HANDCUFFS AND THE PT WRISTS WERE PLACED IN LOCKED RESTRAINTS. PT WHEELED INTO ROOM 4 IN THE ER. ONCE IN THE ROOM, PT GIVEN GUERA JARRETT
[2020-12-11] MEDS: Ziprasidone IM 20 MG/ML VIAL IM (16:00)
--- NOTE | 2020-12-11 16:02 | ED.RN ---
20 mg IM Geodon given per Dr Helms at 1600.
[2020-12-11 16:36] LABS: Absolute Neutrophil Count 6.2 X10^3/uL (2.0-7.7); Basophil# 0.02 X10^3/uL; Basophil% 0.2 % (0-1); Eosinophil# 0.04 X10^3/uL; Eosinophils% 0.4 % (0-5); Hematocrit 46.1 % (40-54); Hemoglobin 15.5 g/dL (13.0-16.5); Lymphocyte % 23.3 % (19-41); Mean Corp Hgb Conc 33.6 g/dL (32-36); Mean Corpuscular Hgb 28.9 pg (27.0-32.0); Mean Corpuscular Volume 85.8 fL (80-94); Mean Platelet Vol. 9.9 fl (6.2-12.0); Monocyte% 7.8 % (0-10); NRBC Flagged by Analyzer 0 % (0-5); Neutrophil # 6.15 X10^3/uL (2.7-7.7); Neutrophil % 68.1 % (47-70); Platelet Count 264 K/mm3 (150-450); RBC Distribution Width SD 40.3 fl (35.1-43.9); Red Blood Count 5.37 M/mm3 (4.6-6.2)
[2020-12-11 16:53] LABS: ALB/GLOB Ratio 1.2 RATIO (0.9-2.4); AST(SGOT) 25 U/L (15-37); Alanine Aminotransfer ALT/SGPT 63 U/L (16-61); Albumin, Serum 4.5 g/dL (3.2-5.0); Alkaline Phosphatase 79 U/L (45-117); Anion Gap 9 (5-15); BUN 13 mg/dL (7-18); CPK Total, Creatine Kinase 259 U/L (39-308); Calcium,Total 9.1 mg/dL (8.5-10.1); Chloride 101 mmol/L (98-107); Creatinine, Serum 0.93 mg/dL (0.70-1.30); EST Glomerular Filtration Rate 103 mL/min (>60); Est Glom Filt Rate - Afr Amer 124 mL/min (>60); Estimated Creatinine Clearance 118.26 ml/min; Globulin 3.7 g/dL (2.2-4.2); Glucose 101 mg/dL (74-106); Potassium 3.4 mmol/L (3.5-5.1); Protein, Total 8.2 g/dL (6.4-8.2); Sodium Level 135 mmol/L (136-145)
--- NOTE | 2020-12-11 16:55 | CM.ED ---
SOCIAL WORK ASSESSMENT Referral Source: Reason for Consult: Mental Health Chief Compliant: Per [place] [employer] medic they reported that they were called to [facility] (D treatment facility) for male with psychiatric problems and high on meth. Staff stated that patient is having severe paranoia. Per medic patient stated he was in fear and felt that there are people after him. Patient was reassured repeatedly, during transport, that no one was going to harm him. RN stated that patient reports that he was ?gonna Here?. Patient had told RN that he had smoked meth this morning. RN stated that patient is convinced something is under his bed and was also messing with the linen hamper so both his bed and linen hamper were removed from the lindo. Patient then came out of the room and was in the lindo. He stated that he wanted to talk to his mom and daughter and repeatedly stated that he was gonna ??. Staff advised that patient is safe. Patient was observed to be watchful, paranoid, and was unable to make any eye contact with staff. He is displaying symptoms of psychosis. Patient was observed to be watchful, displayed no eye contact and was very limited in his conversation with staff. After patient was escorted to a new room, he attempted to leave the hospital and police were contacted and patient was attempting to masturbate outside the hospital. Police escorted patient back to the hospital. He was placed in 4-point restraints for his safety and security. Due to patient?s current behavior and presentation SW contacted patient?s emergency contact, which was his mother. Patient called his mother but spoke to individual who identified himself as patient?s stepfatherFly. Per Fly Patient?s mother is sleeping as she works 3rd shift, but he would attempt to provide history. Marital/Social History: Single. Previously and divorce. He has 4 children. Patient?s daughter has been adopted by his mother and stepfather at 4 weeks and ?the other grandparents? adopted his other son, another son was adopted after being in foster care and the 4th child Fly reports he has ?no clue? where he is at. Living Situation: Stepfather said that patient resides in an apartment in [place]. Stepfather said that they had just visited patient one month ago. Support/Resources: Stepfather said that patient has friends and a ?bilingual legal assistant? in [place]. Stepfather said that patient has a History: Per Stepfather patient has no history. 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 Stepfather said that they had talked to patient?s boss and they ?really liked [place]?. Chart said that patient is employed by [employer]. Patient obtained his GED per stepfather. Mental Health Treatment/History: Stepfather said that patient was on meds doesn?t know which meds. Stepfather said that he is not sure if there is a mental health diagnosis. Stepfather said that he is not sure if patient had a psychiatric hospitalization. Triggers/Stressors: Stepfather said, ?I don?t know...he was doing so good?. Coping Skills: Stepfather said that patient has a ?sarah? through AA and that when they visited patient in [place], they went to AA classes with him. Abuse Issues: Stepfather reports no abuse history to his knowledge. Substance Abuse History: When this tech writer called patient?s stepfather to inquire about history patient?s stepfather said, ?he must be using again?. Stepfather said that patient?s drug of choice is meth. Stepfather said that patient has used AOD ?on and off? and came to [place] for rehab. Stepfather said, ?he burned his bridges here?. Risk to Self/Others: Suicidal- Per no reports of SI Homicidal: Per no reports of SI Violence: No reports of violence Mental Status Exam: Orientation- Patient can respond to name and says he is at the hospital. Memory: Impaired due to current state Appearance/General Behavior: Patient is not wearing shirt. He has tattoos all over his chest. He was wearing shana short. 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 For his safety and well being he needs inpatient psych treatment for stabilization. Plan: Placement at inpatient psych facility [facility]
--- NOTE | 2020-12-11 18:16 | ED.RN ---
patient placed in opposite arm and leg at this time and patient assisted use of the urinal
[2020-12-11 19:08] LABS: Amphetamine Urine VISTA POSITIVE (<1000 ng/mL); Barbiturate Urine VISTA POSITIVE (< 200 ng/mL); Benzodiazepine Urine VISTA NEGATIVE (< 200 ng/mL); Cocaine Urine VISTA NEGATIVE (< 300 ng/mL); Ecstacy Urine VISTA NEGATIVE (< 500 ng/mL); Methadone Urine VISTA NEGATIVE (< 300 ng/mL); PCP Urine VISTA NEGATIVE (< 25 ng/mL); THC Urine VISTA POSITIVE (< 50 ng/mL); Vista UDS pH Range 6
--- NOTE | 2020-12-11 19:20 | CM.ED ---
Addendum entered by Rowan Wyatt 12/11/20 21:50: RN indicated patient is out of 2 point restraints. BENEDICTO called and updated [facility] that patient was out of 2 point restraints. Sheri from [facility] advised to call her back in 1-2 hours. BENEDICTO called [facility] and advised patient was out of restraints and doing well. Sheri called and spoke to Christianne requesting copy of pink slip and [facility] COVID screen. BENEDICTO faxed this information to [facility]. BENEDICTO spoke to Sheri and she advised patient was accepted by Dr. Montesinos at [facility] and would be going to Room 103 Bed A. Nurse to Nurse [phone]. CONRAD Faust will give report. [place] will set up transportation. BENEDICTO called patient's mother, Alma Delia and updated her, via voice mail, that patient has been accepted at [facility] and would be going tonight but unsure what time he would be transported. BENEDICTO also provided contact number for [facility]. Plan: Admit to [facility] Original Note: BENEDICTO Note BENEDICTO called Admissions at [facility] and advised of the referral. BENEDICTO faxed referral to [facility]. BENEDICTO noted patient is currently in 2 point restraints. [place] signed by MD. [facility]
--- NOTE | 2020-12-11 20:17 | ED.RN ---
PT AWAKES TO NAME, AGREES TO COOPERATE WITH CARE, STATES I JUST WANT TO SLEEP FOR AWHILE. RESTRAINTS DC'D
--- NOTE | 2020-12-11 21:25 | ED.RN ---
CALL FROM ARLEY AT [facility], PT HAS BEEN ACCEPTED, THEY WILL CALL BACK WITH ACCEPTING INFO AFTER WE FAX, TOTAL CK, EKG, GENERATIONS COVID SCREEN AND PINK SLIP. INFO RELAYED TO PO[facility] WHO WILL FAX REQUESTED INFO.
--- NOTE | 2020-12-12 00:58 | NURSING ---
CALLED PHYSICIANS TO CHECK ON RIDE I WAS GIVEN A 2 HOUR ETA AND IT HAD BEEN 3 HOURS. I WAS INFORMED THE SQUAD WAS 30 MINUTES OUT AT 0055.
[2020-12-12 02:01] VITALS: RESP 16
== END 2020-12-12 01:55 ==
PROVIDERS: Emergency Provider Emergency Medicine
DX: F23 Brief psychotic disorder (principal); F15.90 Other stimulant use, unspecified, uncomplicated; F22 Delusional disorders; R45.1 Restlessness and agitation; Z20.822 Contact with and (suspected) exposure to COVID-19; Z79.1 Long term (current) use of non-steroidal anti-inflammatories (NSAID); F17.210 Nicotine dependence, cigarettes, uncomplicated
CPT/HCPCS: 80053; 80307; 82077; 82550; 85025; 87426; 96372; 99285; J3486

== ENCOUNTER 2021-01-23 06:16 | Emergency (ER) | payer MEDICAID, SELFPAY ==
[2021-01-23 06:22] VITALS: BP 146/91; PULSE 124; RESP 91; TEMP 35.6; O2SAT 95; BMI 29.5
--- NOTE | 2021-01-23 06:25 | RAD_ITS ---
STUDY: X-RAY CHEST REASON FOR EXAM: Male, 30 years old. chest pain TECHNIQUE: AP COMPARISON: None. FINDINGS: The lungs are clear and expanded. There is no demonstrated pleural abnormality. Normal size heart. Normal mediastinum and jackie. Normal visualized pulmonary arteries. Normal visualized aortic arch and descending thoracic aorta. Normal visualized thoracic spine. Normal visualized ribs, clavicles, and shoulders. There is no demonstrated abnormality of the visualized soft tissue structures of the upper abdomen. RAD/Chest 1 View (Portable) IMPRESSION: Negative x-ray examination of the chest. Electronically Signed: Navi Pedersen MD at 7:19 EDT Tel , Service support ,
--- NOTE | 2021-01-23 06:25 | EKG12_ITS ---
Test Reason : Blood Pressure : / mmHG Vent. Rate : 126 BPM Atrial Rate : 126 BPM P-R Int : 138 ms QRS Dur : 078 ms QT Int : 302 ms P-R-T Axes : 029 061 016 degrees QTc Int : 437 ms Sinus tachycardia Otherwise normal ECG Confirmed by MAXINE BECKFORD, CATY ([id number]), editorial cartoonist ERNIE FISCHER ([id number]) on 01/26/2021 12:39:29 PM Referred By: SOFYA Confirmed By:CATY GOODMAN MD
[2021-01-23 06:32] LABS: Absolute Lymphocyte Count 2.75 X10^3/uL (0.83-4.51); Absolute Neutrophil Count 8.4 X10^3/uL (2.0-7.7); Basophil# 0.04 X10^3/uL; Basophil% 0.3 % (0-1); Eosinophil# 0.04 X10^3/uL; Eosinophils% 0.3 % (0-5); Hematocrit 49.6 % (40-54); Hemoglobin 16.4 g/dL (13.0-16.5); Lymphocyte # 2.75 X10^3/ul (0.83-4.51); Lymphocyte % 22.2 % (19-41); Mean Corp Hgb Conc 33.1 g/dL (32-36); Mean Corpuscular Hgb 29.2 pg (27.0-32.0); Mean Corpuscular Volume 88.3 fL (80-94); Monocyte# 1.08 X10^3/uL; Monocyte% 8.7 % (0-10); NRBC Flagged by Analyzer 0 % (0-5); Neutrophil # 8.44 X10^3/uL (2.7-7.7); Platelet Count 361 K/mm3 (150-450); RBC Distribution Width SD 45.3 fl (35.1-43.9); Red Blood Count 5.62 M/mm3 (4.6-6.2); White Blood Count 12.4 K/mm3 (4.4-11.0)
[2021-01-23 06:49] LABS: Anion Gap 8 (5-15); BUN 22 mg/dL (7-18); BUN/Creat Ratio 18.5 RATIO (10-20); Calcium,Total 9.4 mg/dL (8.5-10.1); Chloride 102 mmol/L (98-107); Creatinine, Serum 1.19 mg/dL (0.70-1.30); EST Glomerular Filtration Rate 77 mL/min (>60); Est Glom Filt Rate - Afr Amer 93 mL/min (>60); Estimated Creatinine Clearance 92.42 ml/min; Glucose 119 mg/dL (74-106); Potassium 3.2 mmol/L (3.5-5.1); Sodium Level 139 mmol/L (136-145); Troponin-I HS 4 pg/mL (3.0-78.0)
--- NOTE | 2021-01-23 07:09 | ED.VIS.CHEST ---
HPI History of Present Illness Chief Complaint: Chest Pain Informant: patient Narrative Narrative: 30-year-old male presented to the emergency department chest pain. Patient states that started yesterday just prior to leaving work. He describes it as a heaviness across his chest. 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 He denies any DVT PE risk factors. Symptoms persisted throughout the night seem to get worse after he inhaled marijuana. PFSH PFS Medical History Lab test negative for COVID-19 virus Smoker Substance abuse URI (upper respiratory infection) Home Medications NK 01/23/21 [History Last Taken Unknown] Allergy/AdvReac Type Severity Reaction Status Date / Time No Known Allergies Allergy Verified 01/23/21 06:17 no surgical history Social History Smoking Status: Current every day smoker tobacco type: cigarettes alcohol intake: never ROS ROS ED Constitutional Constitutional ED: Denies chills or weight loss Eyes Eyes: Denies change in vision or diplopia ENT ENT ED: Denies ear pain, rhinorrhea or sore throat Cardiovascular Cardiovascular: Reports chest pain; Denies orthopnea, palpitations or racing heartbeat Respiratory/Chest Respiratory/Chest: Denies cough, dyspnea or orthopnea Gastrointestinal Gastrointestinal: Denies abdominal pain, diarrhea, nausea or vomiting Genitourinary Genitourinary ED: Denies dysuria, hematuria or urinary frequency Musculoskeletal Musculoskeletal: Denies arthralgias or myalgias Integumentary Denies abscess or rash Neurologic Neurologic: Denies headache(s) or weakness Psychiatric Psychiatric: Denies anxiety, depression, suicidal ideation or suicidal thoughts Endocrine Endocrinology: Denies polydipsia, polyphagia or polyuria Allergic/Immunologic Allergic/Immunologic ED: Denies mouth swelling, tongue swelling or urticaria EXAM Physical Exam Narrative Exam Narrative: Patient is laying on the bed. He is consistently on his phone seemingly distracted with it when I asked him questions. Const Vital Signs: 01/23/21 06:22 01/23/21 06:24 01/23/21 06:25 Temperature 96.0 F L Temperature Source Temporal Pulse Rate 124 H Respiratory Rate 91 H Respiratory Effort Normal Respiratory Pattern Normal Blood Pressure 146/91 H Blood Pressure Mean 109 Pulse Ox 95 Oxygen Delivery Method Room Air Room Air 01/23/21 07:20 Temperature Temperature Source Pulse Rate 122 H Respiratory Rate 20 H Respiratory Effort Respiratory Pattern Blood Pressure 142/89 H Blood Pressure Mean 106 Pulse Ox 96 Oxygen Delivery Method Room Air Positive well nourished and well developed General Appearance ED: well developed HEENT Reports normocephalic, head/scalp atraumatic and moist mucous membranes Eyes PERRL and EOMs intact bilaterally Neck no lymphadenopathy, supple and no JVD Resp normal respiratory effort and clear to auscultation bilaterally Cardio regular rate, regular rhythm and no murmurs GI normal to inspection, nondistended, normoactive bowel sounds and non-tender Palpation: soft Back/Spine no CVA tenderness and normal ROM Extremity normal to inspection General Extremety ED: Negative for edema General Extremity: Negative for edema Neuro oriented x3 and CN's II-XII intact bilaterally Sensorium / Orientation: alert Motor Exam: strength 5/5 throughout Psych mental status grossly normal Mood & Affect: Negative for depressed or tearful Skin no rashes or lesions noted and no wounds Heart Score History: Slightly/Non-Suspicious ECG: Normal Age: </= 45 years Risk Factors: 1 or 2 Risk Factors Troponin: </= Normal Limit Score: 1 MDM MDM MDM Narrative Medical decision making narrative: Basic blood work including D-dimer and high-sensitivity troponin were essentially negative. Noted potassium 3.2. White rotation of the chest x-ray is no acute process. He has had no events on the monitor. Patient requested the [employer] Covid vaccine and we will administer that. Lab Data Attestation: I reviewed the patient's lab results. Labs: Laboratory Results - last 24 hr 01/23/21 01/23/21 01/23/21 06:06 06:06 07:15 WBC 12.4 H RBC 5.62 Hgb 16.4 Hct 49.6 MCV 88.3 MCH 29.2 MCHC 33.1 RDW Std Deviation 45.3 H RDW Coeff of Chucky 14.0 Plt Count 361 MPV 10.0 Immature Gran % (Auto) 0.500 Neut % (Auto) 68.0 Lymph % (Auto) 22.2 [place] % (Auto) 8.7 Eos % (Auto) 0.3 Baso % (Auto) 0.3 Absolute Neuts (auto) 8.4 H Absolute Lymphs (auto) 2.75 Nucleated RBC % 0 D-Dimer Quant (PE/DVT) <= 0.27 Sodium 139 Potassium 3.2 L Chloride 102 Carbon Dioxide 29.0 Anion Gap 8 BUN 22 H Creatinine 1.19 Estim Creat Clear Calc 92.42 Est GFR (MDRD) Af Amer 93 Est GFR (MDRD) Non-Af 77 BUN/Creatinine Ratio 18.5 Glucose 119 H Calcium 9.4 Troponin I High Sens 4 Radiography Diagnostic Testing: Radiology Impression Chest X-Ray 01/23/21 06:25 IMPRESSION: Negative x-ray examination of the chest. Electronically Signed: Navi Pedersen MD at 7:19 EDT Tel , Service support , EKG Initial EKG: Attestation: I personally reviewed and interpreted this EKG as follows: Comments: Sinus tachycardia with a ventricular rate of 126 bpm Discharge Plan Triage Chief Complaint: Chest Pain ED Provider: Ramiro Greene Dx/Rx/DC Orders Clinical Impression: Chest pain Instructions: ED Chest Pain, Uncertain Cause Prescriptions: No Action NK RF: 0 Primary Care Provider: Care Physician,No Primary Referrals: Svitlana Doll MD [STAFF PHYSICIAN] - 1 Week if not improving (for primary care ) Care Physician,No Primary [Primary Care Provider] - Disposition Disposition: Home, Self Care
[2021-01-23 07:20] VITALS: BP 142/89; PULSE 122; RESP 20; O2SAT 96
[2021-01-23 08:12] LABS: D-Dimer Quantitative (DVT/PE) <= 0.27 FEU/ug/m (0.27-0.49)
[2021-01-23] MEDS: COVID-19 VAC,AD26(JANSSEN)/PF 0.5 ML SYRINGE IM (09:29)
[2021-01-23 09:58] VITALS: PULSE 80; RESP 16; O2SAT 97; O2SAT 98
== END 2021-01-23 09:59 | disposition home or self-care (01) ==
PROVIDERS: Emergency Provider Emergency Medicine
DX: R07.9 Chest pain, unspecified (principal); Z23 Encounter for immunization; F17.210 Nicotine dependence, cigarettes, uncomplicated
CPT/HCPCS: 71045; 80048; 84484; 85025; 85379; 91303; 93005; 99285; A4216

== ENCOUNTER 2021-01-23 22:37 | Emergency (ER) | payer MEDICAID, SELFPAY ==
[2021-01-23 22:38] VITALS: BP 163/130; PULSE 164; RESP 18; TEMP 36.6; O2SAT 98; BMI 32.5
--- NOTE | 2021-01-23 23:05 | EKG12_ITS ---
Test Reason : CP Blood Pressure : / mmHG Vent. Rate : 129 BPM Atrial Rate : 129 BPM P-R Int : 136 ms QRS Dur : 086 ms QT Int : 304 ms P-R-T Axes : 037 084 026 degrees QTc Int : 445 ms Poor data quality, interpretation may be adversely affected Sinus tachycardia Poor R wave progression Confirmed by MAXINE BECKFORD, CATY ([id number]), supervising editor trailer ERNIE FISCHER ([id number]) on 01/26/2021 2:21:55 PM Referred By: PARISH Confirmed By:CATY GOODMAN MD
--- NOTE | 2021-01-23 23:07 | EDS_ITS ---
HPI History of Present Illness Chief Complaint: Chest Pain Informant: patient and EMS Onset/Context/Timing Onset: - (Unable to determine) Context: - (Unknown) Timing: - (Unknown) Quality: Patient agitated, scanning the room Location: Unable to determine Current Severity: Read HPI Maximum Severity: Read HPI Worsened by: Unknown Relieved by: Unknown Associated Symptoms Associated Symptoms: Unable to determine Narrative Narrative: Patient apparently was seen here last night for chest pain. He has history of methamphetamine abuse, alcohol abuse and acute psychosis as well as acute paranoia. Patient arrived by ambulance. Triage has chest pain. Patient is agitated and scanning the room. He is chewing on his nails. He is attempting to make a phone call using his phone but is unsuccessful. He is looking around the room. When asked if he is seeing things or hearing things he said yes . Prior to leaving he informed me that he was going to tonight. He was asked to elaborate and he began to stare in the corner of ball of the cabinet. Prior similar symptoms: Yes Recent Illness/Hospitalization: Yes [facility] Medical History Lab test negative for COVID-19 virus Smoker Substance abuse URI (upper respiratory infection) Home Medications NK 01/23/21 [History Last Taken Unknown] Allergy/AdvReac Type Severity Reaction Status Date / Time No Known Allergies Allergy Verified 01/23/21 22:55 Social History (Updated 01/23/21 @ 23:[address] Iván Yang MD) household members: none Smoking Status: Current every day smoker tobacco type: cigarettes alcohol intake: never details: Per prior records he has history of alcohol use unable to determine substance use type: amphetamines and methamphetamine ROS ROS ED Review of Systems ROS Unobtainable: due to mental condition and due to mental status EXAM Physical Exam Const Vital Signs: 01/23/21 22:38 Temperature 97.9 F Temperature Source Temporal Pulse Rate 164 H Respiratory Rate 18 Blood Pressure 163/130 H Blood Pressure Mean 141 Pulse Ox 98 Oxygen Delivery Method Room Air Positive well nourished, well developed and obese General Appearance ED: well developed, diaphoretic and other Patient appears pale. Patient is agitated. He is pacing. He appears to be hallucinating. Nutritional Appearance: obese HEENT Reports moist mucous membranes HEENT Narrative: Head atraumatic normocephalic. Negative for trauma or tenderness Eyes PERRL and EOMs intact bilaterally Eyes Narrative: There is no nystagmus. General Eye ED: Negative for pale conjunctiva or scleral icterus Neck no lymphadenopathy, supple and no JVD Chest Wall inspection of chest normal Resp normal respiratory effort and clear to auscultation bilaterally Cardio regular rhythm, S1 normal heart sound, S2 normal heart sound and no murmurs Rate: tachycardic GI normal to inspection, nondistended, normoactive bowel sounds and non-tender Palpation: soft Back/Spine no CVA tenderness Cervical Spine: Negative for cervical spine tenderness Thoracic Spine / Upper Back: Negative for thoracic spinal tenderness or paraspinal muscle tenderness Extremity normal to inspection General Extremety ED: Negative for edema General Extremity: Negative for edema Neuro No oriented x3 and CN's II-XII intact bilaterally Sensorium / Orientation: Negative for alert Motor Exam: strength 5/5 throughout Psych Attitude: agitated Skin no rashes or lesions noted and no wounds MDM MDM MDM Narrative Medical decision making narrative: Patient with acute psychosis. This may be psychiatric in etiology versus drug-induced. This patient is agitated diaphoretic tachycardic and has history of methamphetamine abuse will obtain blood work including tox screen. IV was placed and he will receive IV Ativan. Patient's laboratory studies have not been drawn and urine specimens has not been obtained. Case will be turned over to the evening physician Dr. Guru Mckeon he is to make disposition once laboratory results are back and patient is reevaluated. EKG Initial EKG: Attestation: I personally reviewed and interpreted this EKG as follows: Interpretation: Sinus Tachycardia (Unable to obtain EKG in the department. EKG prior to arrival reveals sinus tachycardia with a ventricular rate of 151. UT interval is 138 ms. QT duration 262 ms. [place] is normal. There is artifact.) Discharge Plan Triage Chief Complaint: Chest Pain ED Provider: Iván Yang Dx/Rx/DC Orders Prescriptions: No Action NK RF: 0 Primary Care Provider: Care Physician,No Primary
--- NOTE | 2021-01-23 23:12 | CPS ---
Patient refused EKG at this time. Physician aware of refusal.
[2021-01-24] MEDS: LORazepam 2 MG/ML Syringe IV (00:48)
[2021-01-24 00:51] VITALS: PULSE 136; RESP 16
[2021-01-24 01:05] LABS: Absolute Lymphocyte Count 0.91 X10^3/uL (0.83-4.51); Absolute Neutrophil Count 8.5 X10^3/uL (2.0-7.7); Basophil# 0.03 X10^3/uL; Basophil% 0.3 % (0-1); Eosinophil# 0.03 X10^3/uL; Eosinophils% 0.3 % (0-5); Hematocrit 44.6 % (40-54); Hemoglobin 15.2 g/dL (13.0-16.5); Lymphocyte # 0.91 X10^3/ul (0.83-4.51); Lymphocyte % 8.3 % (19-41); Mean Corp Hgb Conc 34.1 g/dL (32-36); Mean Corpuscular Hgb 29.2 pg (27.0-32.0); Mean Corpuscular Volume 85.8 fL (80-94); Mean Platelet Vol. 9.7 fl (6.2-12.0); Monocyte# 1.42 X10^3/uL; Monocyte% 12.9 % (0-10); NRBC Flagged by Analyzer 0 % (0-5); Neutrophil # 8.53 X10^3/uL (2.7-7.7); Neutrophil % 77.7 % (47-70); Platelet Count 281 K/mm3 (150-450); RBC Distribution Width CV 13.6 % (11.6-14.6); RBC Distribution Width SD 42.3 fl (35.1-43.9)
[2021-01-24 01:11] VITALS: PULSE 134; RESP 18
[2021-01-24 01:35] LABS: Anion Gap 9 (5-15); BUN 22 mg/dL (7-18); BUN/Creat Ratio 20.2 RATIO (10-20); Calcium,Total 9.3 mg/dL (8.5-10.1); Chloride 101 mmol/L (98-107); Creatinine, Serum 1.09 mg/dL (0.70-1.30); EST Glomerular Filtration Rate 85 mL/min (>60); Est Glom Filt Rate - Afr Amer 103 mL/min (>60); Glucose 114 mg/dL (74-106); Potassium 3.4 mmol/L (3.5-5.1); Sodium Level 135 mmol/L (136-145); Troponin-I HS 4 pg/mL (3.0-78.0)
[2021-01-24 02:52] VITALS: PULSE 112; RESP 18
[2021-01-24 03:10] VITALS: PULSE 121; RESP 18
[2021-01-24 06:00] VITALS: BP 164/70; PULSE 121; RESP 18
--- NOTE | 2021-01-24 06:17 | ED.RN ---
pt will periodically wake up and scream or make howling sounds.pt reminded multiple times that we need a urine specimen and pt refuses.
[2021-01-24 07:59] VITALS: RESP 14
== END 2021-01-24 09:09 | disposition home or self-care (01) ==
LOC: ED 23:55
PROVIDERS: Emergency Provider Emergency Medicine
DX: R07.9 Chest pain, unspecified (principal); Z23 Encounter for immunization; R00.0 Tachycardia, unspecified; F23 Brief psychotic disorder; R45.1 Restlessness and agitation; F15.11 Other stimulant abuse, in remission; E66.9 Obesity, unspecified; F17.210 Nicotine dependence, cigarettes, uncomplicated
CPT/HCPCS: 80048; 82077; 83605; 84484; 85025; 93005; 96374; 99284; A4216

== ENCOUNTER 2021-01-24 17:37 | Emergency (ER) | payer MEDICAID, SELFPAY ==
[2021-01-24 17:38] VITALS: BP 113/93; PULSE 156; RESP 25; TEMP 38; O2SAT 99; BMI 31.2
--- NOTE | 2021-01-24 18:30 | EKG12_ITS ---
Test Reason : CP Blood Pressure : / mmHG Vent. Rate : 153 BPM Atrial Rate : 153 BPM P-R Int : 130 ms QRS Dur : 082 ms QT Int : 254 ms P-R-T Axes : 037 096 025 degrees QTc Int : 405 ms Poor data quality, interpretation may be adversely affected Sinus tachycardia Otherwise normal ECG Confirmed by MATHEW BECKFORD, LIBRA ([id number]), scientific publications editor ERNIE FISCHER ([id number]) on 01/26/2021 1:35:57 PM Referred By: PL Confirmed By:LIBRA CARMONA MD
--- NOTE | 2021-01-24 18:45 | ED.RN ---
PT AMBULATES OUT OF DEPT WITH OFFICER EVERTON, OFFICER EVERTON TAKING PT TO [facility].
--- NOTE | 2021-01-25 00:12 | ED.VIS.CHEST ---
HPI History of Present Illness Chief Complaint: Chest Pain Informant: patient Onset/Context/Timing Onset: Days (2-3) Activity at onset: unknown Timing: Continuous Quality: Positive for Aching Location: Substernal Current Severity: Moderate Maximum Severity: Moderate Worsened By: Nothing Relieved By: Nothing Associated Symptoms: Negative for Nausea, Vomiting, Dyspnea, Cough and Palpitations Narrative Narrative: Patient presents saying that he is having chest discomfort, he was here last night for the same thing, apparently he has a history of methamphetamine abuse and his primary complaint is not chest pain to me, it is paranoia and states that he is having a schizo flareup saying that he has not been on schizophrenia medications for a couple years and cannot tell me why. He denies any recent illness or injury. He keeps looking around the room as if he is very paranoid asking if there is someone here who is going to kill him or hurt him, to which I answered of course not. He is redirectable for only a very short period time and is very tangential. Apparently he told EMS that he snorted a pill of Vyvanse prior to coming here. He denies any suicidal ideation. [facility] Medical History (Updated 01/25/21 @ 00:[address] Tirso Del Real MD) Smoker Substance abuse URI (upper respiratory infection) Home Medications NK 01/23/21 [History Last Taken Unknown] Allergy/AdvReac Type Severity Reaction Status Date / Time No Known Allergies Allergy Verified 01/24/21 17:38 Social History household members: none Smoking Status: Current every day smoker tobacco type: cigarettes alcohol intake: never details: Per prior records he has history of alcohol use unable to determine substance use type: amphetamines and methamphetamine ROS ROS ED Constitutional Constitutional ED: Reports malaise; Denies chills Eyes Eyes: Denies change in vision or diplopia ENT ENT ED: Denies rhinorrhea or sore throat Cardiovascular Cardiovascular: Reports chest pain; Denies palpitations Respiratory/Chest Respiratory/Chest: Denies cough or dyspnea Gastrointestinal Gastrointestinal: Denies abdominal pain, diarrhea, nausea or vomiting Genitourinary Genitourinary ED: Denies dysuria or hematuria Musculoskeletal Musculoskeletal: Denies back pain or neck pain Integumentary Denies abscess or rash Neurologic Neurologic: Denies headache(s), paresthesias or weakness Psychiatric Psychiatric: Reports anxiety, auditory hallucinations and paranoia; Denies suicidal thoughts EXAM Physical Exam Const Vital Signs: 01/24/21 17:38 Temperature 100.4 F H Temperature Source Temporal Pulse Rate 156 H Respiratory Rate 25 H Blood Pressure 113/93 H Blood Pressure Mean 99 Pulse Ox 99 Oxygen Delivery Method Room Air Positive well nourished and well developed General Appearance ED: well developed and NAD HEENT Reports moist mucous membranes normocephalic and atraumatic Eyes PERRL and EOMs intact bilaterally Neck full ROM and supple Resp normal respiratory effort and clear to auscultation bilaterally Cardio regular rate, regular rhythm, no murmurs and no JVD Rate: tachycardic GI non-tender and non-distended Auscultation: normoactive bowel sounds Palpation: soft Back/Spine no CVA tenderness General Back: other FROM Extremity normal to inspection General Extremety ED: Negative for edema, pulses abnormal or tenderness General Extremity: Negative for edema or pulses abnormal Neuro oriented x3, CN's II-XII intact bilaterally and no sensory deficits noted Sensorium / Orientation: awake and alert Motor Exam: strength 5/5 throughout Psych Attitude: paranoid Activity / Motor Behavior: restless Mood & Affect: anxious Thought Process: disorganized Thought Content: hallucination(s) Positive for auditory Skin no rashes or lesions noted and no wounds MDM MDM MDM Narrative Medical decision making narrative: Patient is very paranoid, tachycardic, and febrile. I ordered a work-up to medically clear him. Nurses want to perform this and the patient adamantly refused to allow them to draw his blood or do any testing. I had ordered a risperidone for him, because he was acting psychotic and he agreed to take something orally to help. However it was brought to my attention after this that he had labs done earlier in the day had already been medically cleared for outpatient detox, he wanted to go to [facility], so he eloped from our emergency department and the police gave him a ride over there. EKG Initial EKG: Attestation: I personally reviewed and interpreted this EKG as follows: Interpretation: No Acute Injury Pattern and Sinus Tachycardia Discharge Plan Triage Chief Complaint: Chest Pain ED Provider: Tirso Del Real Dx/Rx/DC Orders Clinical Impression: Acute psychosis, Methamphetamine use, Chest pain, SIRS (systemic inflammatory response syndrome) Prescriptions: No Action NK RF: 0 Primary Care Provider: Care Physician,No Primary Referrals: Care Physician,No Primary [Primary Care Provider] - Disposition Disposition: Elopement Discharge Date/Time: 01/24/21 18:45
== END 2021-01-24 18:45 | disposition left against medical advice (07) ==
PROVIDERS: Emergency Provider Emergency Medicine
DX: R07.89 Other chest pain (principal); R65.10 Systemic inflammatory response syndrome (SIRS) of non-infectious origin without acute organ dysfunction; F29 Unspecified psychosis not due to a substance or known physiological condition; F17.210 Nicotine dependence, cigarettes, uncomplicated
CPT/HCPCS: 93005; 99282

== ENCOUNTER 2021-02-09 04:04 | Emergency (ER) | payer MEDICAID, SELFPAY ==
[2021-02-09 04:05] VITALS: BP 136/100; PULSE 117; RESP 18; TEMP 37.1; O2SAT 99; BMI 32.5
--- NOTE | 2021-02-09 04:21 | ED.VIS.CHEST ---
HPI History of Present Illness Chief Complaint: Chest Pain Informant: patient and EMS Narrative Narrative: 30-year-old male presenting to the emergency room via EMS for the evaluation of chest pain. This is a reoccurring problem for Mr. Florez. Apparently whenever he does methamphetamines feels like his heart is going to race out of his chest and he becomes extremely paranoid. This is what is happening according to him tonight. [facility] Medical History Smoker Substance abuse URI (upper respiratory infection) Home Medications NK 01/23/21 [History Last Taken Unknown] Allergy/AdvReac Type Severity Reaction Status Date / Time No Known Allergies Allergy Verified 02/09/21 04:11 Social History household members: none Smoking Status: Current every day smoker tobacco type: cigarettes alcohol intake: never details: Per prior records he has history of alcohol use unable to determine substance use type: amphetamines and methamphetamine ROS ROS ED Constitutional Constitutional ED: Denies chills or weight loss Eyes Eyes: Denies change in vision or diplopia ENT ENT ED: Denies ear pain, rhinorrhea or sore throat Cardiovascular Cardiovascular: Reports chest pain, palpitations and racing heartbeat; Denies orthopnea Respiratory/Chest Respiratory/Chest: Denies cough, dyspnea or orthopnea Gastrointestinal Gastrointestinal: Denies abdominal pain, diarrhea, nausea or vomiting Genitourinary Genitourinary ED: Denies dysuria, hematuria or urinary frequency Musculoskeletal Musculoskeletal: Denies arthralgias or myalgias Integumentary Denies abscess or rash Neurologic Neurologic: Denies headache(s) or weakness Psychiatric Psychiatric: Denies anxiety, depression, suicidal ideation or suicidal thoughts Endocrine Endocrinology: Denies polydipsia, polyphagia or polyuria Allergic/Immunologic Allergic/Immunologic ED: Denies mouth swelling, tongue swelling or urticaria EXAM Physical Exam Const Vital Signs: 02/09/21 04:05 Temperature 98.7 F Temperature Source Oral Pulse Rate 117 H Respiratory Rate 18 Blood Pressure 136/100 H Blood Pressure Mean 112 Pulse Ox 99 Oxygen Delivery Method Room Air Positive well nourished and well developed General Appearance ED: well developed HEENT Reports normocephalic, head/scalp atraumatic and moist mucous membranes Eyes PERRL and EOMs intact bilaterally Neck no lymphadenopathy, supple and no JVD Resp normal respiratory effort and clear to auscultation bilaterally Cardio regular rate and no murmurs Rate: tachycardic GI normal to inspection, nondistended, normoactive bowel sounds and non-tender Palpation: soft Back/Spine no CVA tenderness and normal ROM Extremity normal to inspection General Extremety ED: Negative for edema General Extremity: Negative for edema Neuro oriented x3 and CN's II-XII intact bilaterally Sensorium / Orientation: alert Motor Exam: strength 5/5 throughout Psych Psych Narrative: Patient appears paranoid but cooperative. Mood & Affect: Negative for depressed or tearful Skin no rashes or lesions noted and no wounds MDM MDM MDM Narrative Medical decision making narrative: Patient is unable to sit still for blood draws or EKG. He continually feels that there is somebody watching him. Patient is going to be discharged to metabolize his methamphetamines Discharge Plan Triage Chief Complaint: Chest Pain ED Provider: Ramiro Greene Dx/Rx/DC Orders Clinical Impression: Methamphetamine abuse, Acute paranoia, Chest pain Instructions: Understanding Methamphetamine ... Prescriptions: No Action NK RF: 0 Primary Care Provider: Care Physician,No Primary Referrals: Care Physician,No Primary [Primary Care Provider] - [facility] [STAFF PHYSICIAN] - As soon as possible Disposition Disposition: Home, Self Care
== END 2021-02-09 04:43 | disposition home or self-care (01) ==
PROVIDERS: Emergency Provider Emergency Medicine
DX: F15.10 Other stimulant abuse, uncomplicated (principal); F22 Delusional disorders; R07.9 Chest pain, unspecified; R00.2 Palpitations; F17.210 Nicotine dependence, cigarettes, uncomplicated
CPT/HCPCS: 99284

== ENCOUNTER 2021-02-11 03:59 | Emergency (ER) | payer MEDICAID, SELFPAY ==
[2021-02-11 04:00] VITALS: BP 143/98; PULSE 74; RESP 16; TEMP 36.9; O2SAT 99; BMI 29.2
--- NOTE | 2021-02-11 04:20 | ED.VIS.BACK ---
HPI History of Present Illness Chief Complaint: Back Informant: patient Narrative Narrative: This patient has a long history of back pain. He states he irritated it when he was shoveling sand a couple days ago. No radiation. No bowel bladder dysfunction. No fevers chills. No impact trauma. He has not tried anything for it. [facility] Medical History Smoker Substance abuse URI (upper respiratory infection) Home Medications NK 01/23/21 [History Last Taken Unknown] Allergy/AdvReac Type Severity Reaction Status Date / Time No Known Allergies Allergy Verified 02/09/21 04:11 Social History household members: none Smoking Status: Current every day smoker tobacco type: cigarettes alcohol intake: never details: Per prior records he has history of alcohol use unable to determine substance use type: amphetamines and methamphetamine ROS ROS ED Constitutional Constitutional ED: Denies chills or fever(s) ENT ENT ED: Denies rhinorrhea or sore throat Cardiovascular Cardiovascular: Denies chest pain Respiratory/Chest Respiratory/Chest: Denies dyspnea Gastrointestinal Gastrointestinal: Denies abdominal pain, constipation, diarrhea, nausea or vomiting Genitourinary Genitourinary ED: Denies dysuria or urinary frequency Musculoskeletal Musculoskeletal: Reports back pain Integumentary Denies abscess or rash Neurologic Neurologic: Denies paresthesias or weakness EXAM Physical Exam Const Vital Signs: 02/11/21 04:00 Temperature 98.4 F Temperature Source Temporal Pulse Rate 74 Respiratory Rate 16 Blood Pressure 143/98 H Blood Pressure Mean 113 Pulse Ox 99 Oxygen Delivery Method Room Air Positive well nourished and well developed General Appearance ED: well developed and NAD Eyes General Eye ED: Negative for scleral icterus Resp normal respiratory effort Cardio regular rate and regular rhythm GI normal to inspection, nondistended, normoactive bowel sounds, soft to palpation and non-tender Back/Spine normal to inspection Back/Spine Narrative: Patient has some very mild nonspecific bilateral paraspinal tenderness in the lumbar area. There are no skin changes. He is able to sit up and move and twist on his own without difficulty. Extremity normal to inspection General Extremety ED: Negative for tenderness Neuro oriented x3 Neuro Narrative: Patient is alert and oriented. He does seem somewhat externally stimulated. This is likely from methamphetamines which she is known to use quite frequently. However there is no focal neurologic deficit. Ambulation strength and reflexes are normal. Sensation is normal. Sensorium / Orientation: alert Psych Attitude: agitated Skin no rashes or lesions noted MDM MDM MDM Narrative Medical decision making narrative: Patient is afebrile. No history of recent infections. No indication of pain with motion. There is no percussion tenderness of the spine. There is paraspinal muscular soreness. This was slow onset after increased physical activity. I think ice rest and nonsteroidals [id number] are appropriate. Discharge Plan Triage Chief Complaint: Back ED Provider: Miguel Angel Santana Dx/Rx/DC Orders Clinical Impression: Lumbar back pain Instructions: ED Back Sprain/Strain Prescriptions: No Action NK RF: 0 Primary Care Provider: Care Physician,No Primary Referrals: Anshu Kinney MD [STAFF PHYSICIAN] - 3-5 Days if not improving Care Physician,No Primary [Primary Care Provider] - Activity Restrictions/Additional Instructions: Use ice, rest, Tylenol or Motrin as directed for soreness. Disposition Disposition: Home, Self Care
[2021-02-11] MEDS: Ibuprofen 200 MG Tablet 400 MG PO (04:34)
== END 2021-02-11 04:36 | disposition home or self-care (01) ==
PROVIDERS: Emergency Provider Emergency Medicine
DX: M54.5 Low back pain (principal); F17.210 Nicotine dependence, cigarettes, uncomplicated

== ENCOUNTER 2021-02-11 23:14 | Emergency (ER) | payer MEDICAID, SELFPAY ==
[2021-02-11 23:15] VITALS: BP 141/108; PULSE 124; RESP 18; TEMP 36.1; O2SAT 100; BMI 29.5
[2021-02-12 02:16] VITALS: BP 153/82; PULSE 97; RESP 12; O2SAT 98
--- NOTE | 2021-02-12 02:52 | EX.ED.DYSGE1 ---
HPI History of Present Illness Chief Complaint: Substance Abuse Informant: patient Narrative Narrative: Patient comes in requesting detox. I asked him why he wanted detox. He states because he saw something under the bed. He is not sure what it is but he knows it is there. This patient uses both opioids and meth. He is a bit paranoid today so he is likely been using methamphetamines. He has no physical complaints. He is not complaining of his back hurting today. PFSH PFS Medical History Anxiety Depression Smoker Substance abuse URI (upper respiratory infection) Home Medications NK 01/23/21 [History Last Taken Unknown] Allergy/AdvReac Type Severity Reaction Status Date / Time No Known Allergies Allergy Verified 02/11/21 23:17 Social History household members: none Smoking Status: Current every day smoker tobacco type: cigarettes alcohol intake: never details: Per prior records he has history of alcohol use unable to determine substance use type: amphetamines and methamphetamine ROS ROS ED Constitutional Constitutional ED: Denies fever(s) or sweats Eyes Eyes: Denies blurry vision ENT ENT ED: Denies rhinorrhea or sore throat Cardiovascular Cardiovascular: Denies chest pain Respiratory/Chest Respiratory/Chest: Denies cough or dyspnea Gastrointestinal Gastrointestinal: Denies nausea or vomiting Genitourinary Genitourinary ED: Denies dysuria or urinary frequency Musculoskeletal Musculoskeletal: Denies arthralgias or myalgias Integumentary Denies abscess or rash Neurologic Neurologic: Denies headache(s) or paresthesias Psychiatric Psychiatric: Reports anxiety; Denies suicidal thoughts Allergic/Immunologic Allergic/Immunologic ED: Denies urticaria EXAM Physical Exam Const Vital Signs: 02/11/21 23:15 02/12/21 02:16 Temperature 97.0 F L Temperature Source Temporal Pulse Rate 124 H 97 Respiratory Rate 18 12 Blood Pressure 141/108 H 153/82 H Blood Pressure Mean 119 105 Pulse Ox 100 98 Oxygen Delivery Method Room Air Room Air Positive well nourished and well developed General Appearance ED: well developed and NAD HEENT Reports moist mucous membranes Negative for trauma Eyes PERRL General Eye ED: Negative for scleral icterus Neck no JVD Chest Wall inspection of chest normal Resp normal respiratory effort and clear to auscultation bilaterally Auscultation: Negative for rales, rhonchi or wheezes Cardio regular rate and regular rhythm GI normal to inspection, nondistended, normoactive bowel sounds and non-tender Palpation: soft Back/Spine no CVA tenderness Neuro Neuro Narrative: Patient is oriented x3. However he is very anxious. He is standing up. He seems to be scared of the underside of the bed. He is displaying paranoia. However he is cooperative. Sensorium / Orientation: alert Psych Psych Narrative: See above. Attitude: agitated Mood & Affect: anxious Skin no rashes or lesions noted Skin Narrative: Patient has many tattoos. But I do not see any acute rash. MDM MDM MDM Narrative Medical decision making narrative: Patient's been observed here. He apparently called the police because there is something under his bed. There was nothing found. Patient is now called his aunt who came up to pick him up. I talked to the patient again. His heart rate is down. He is calm. He is laying in bed. He does not think any things under his bed. He is not paranoid anymore. We discussed trying to quit methamphetamines. I discussed that there really is not inpatient detox from meth. He is comfortable going home at this time. Discharge Plan Triage Chief Complaint: Substance Abuse ED Provider: Miguel Angel Santana Dx/Rx/DC Orders Clinical Impression: Methamphetamine use Instructions: ED Drug Abuse Prescriptions: No Action NK RF: 0 Primary Care Provider: Care Physician,No Primary Referrals: Care Physician,No Primary [Primary Care Provider] - Activity Restrictions/Additional Instructions: Follow-up with primary physician of your choice as needed. Disposition Disposition: Home, Self Care
--- NOTE | 2021-02-12 04:49 | ED.RN ---
Police have been at bedside multiple times. PT has been calling 911 from his room. He doesn't come out of his room since moving up to bed 4, hasn't put on the call light, but has called 911.
== END 2021-02-12 06:33 | disposition home or self-care (01) ==
PROVIDERS: Emergency Provider Emergency Medicine
DX: F19.10 Other psychoactive substance abuse, uncomplicated (principal); F22 Delusional disorders; M54.5 Low back pain; F32.9 Major depressive disorder, single episode, unspecified; F41.9 Anxiety disorder, unspecified; F17.210 Nicotine dependence, cigarettes, uncomplicated
CPT/HCPCS: 36415; 99282; 99284

== ENCOUNTER 2021-02-12 14:49 | Emergency (ER) | payer MEDICAID, SELFPAY ==
[2021-02-12] VITALS (7 sets, daily range): BP systolic 112–139; BP diastolic 57–78; PULSE 60–115; RESP 14–18; TEMP 36.4; O2SAT 96–98; BMI 27.0
--- NOTE | 2021-02-12 15:39 | EX.ED.VIS.PS ---
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 He got people worried therefore police was called. Evaluating records he was here yesterday for similar paranoia due to methamphetamine. Also was here 3 days ago with paranoid symptoms and meth use. He is monitored yesterday after things were off, his paranoia went away. He was recommended to stop meth and was discharged. Currently thinks people are after him. Prior similar symptoms: Yes PFSH PFSH Medical History Anxiety Depression Smoker Substance abuse URI (upper respiratory infection) Home Medications NK 01/23/21 [History Last Taken Unknown] Allergy/AdvReac Type Severity Reaction Status Date / Time No Known Allergies Allergy Verified 02/12/21 14:56 Social History household members: none Smoking Status: Current every day smoker tobacco type: cigarettes alcohol intake: never details: Per prior records he has history of alcohol use unable to determine substance use type: amphetamines and methamphetamine ROS ROS ED ROS Narrative Unobtainable due to his current paranoia. EXAM Physical Exam Const Vital Signs: 02/12/21 14:49 02/12/21 16:18 02/12/21 17:15 Temperature 97.5 F L Temperature Source Temporal Pulse Rate 115 H 105 H 107 H Respiratory Rate 18 16 18 Blood Pressure 139/70 H 127/64 H Blood Pressure Mean 93 85 Pulse Ox 96 96 97 Oxygen Delivery Method Room Air Room Air Room Air Positive well nourished and well developed Constitutional Narrative: Paranoid looking around the room, was able to redirect the patient and settle him down, however only briefly. General Appearance ED: well developed HEENT Reports moist mucous membranes normocephalic and atraumatic Eyes PERRL, EOMs intact bilaterally and conjunctivae normal General Eye ED: Yes normal appearance of both eyes Neck no lymphadenopathy and supple General: Negative for tenderness Chest Wall Chest: Negative for tenderness Resp normal respiratory effort and normal air movement Effort and Inspection: symmetric chest movement; Negative for respiratory distress Cardio regular rate, regular rhythm and no murmurs Rate: tachycardic Peripheral Pulses: pulses 2+ throughout GI normal to inspection, nondistended, normoactive bowel sounds and non-tender Palpation: Negative for guarding or rebound tenderness present Back/Spine no CVA tenderness and no thoracic nor lumbar tenderness Extremity normal to inspection General Extremety ED: Negative for edema or tenderness General Extremity: Negative for edema Neuro Neuro Narrative: No focal deficits. Sensorium / Orientation: awake Skin no rashes or lesions noted and no wounds MDM MDM MDM Narrative Medical decision making narrative: Patient increasing psychosis requiring and agreed with medications to calm down. Is given Geodon IM. Labs positive for amphetamines and THC similar to previous. Potassium 3.2 oral replacement. CK levels were normal. Liver enzymes are normal. Alcohol negative. Patient multiple recurrent events meth induced psychosis. Had multiple visits to the ED here recently. He is evaluated by case management in the ED and does feel he is appropriate for inpatient management. He is medically cleared. 2000: [facility] under the service of Dr. Montesinos. Lab Data Attestation: I reviewed the patient's lab results. Labs: Laboratory Results - last 24 hr 02/12/21 02/12/21 02/12/21 16:10 16:43 16:43 WBC 5.1 RBC 4.85 Hgb 14.2 Hct 41.9 MCV 86.4 MCH 29.3 MCHC 33.9 RDW Std Deviation 41.1 RDW Coeff of Chucky 13.2 Plt Count 247 MPV 9.9 Immature Gran % (Auto) 0.200 Neut % (Auto) 51.8 Lymph % (Auto) 32.2 Woodson % (Auto) 14.0 H Eos % (Auto) 1.4 Baso % (Auto) 0.4 Absolute Neuts (auto) 2.6 Absolute Lymphs (auto) 1.63 Nucleated RBC % 0 Sodium 138 Potassium 3.2 L Chloride 104 Carbon Dioxide 25.0 Anion Gap 9 BUN 10 Creatinine 0.91 Estim Creat Clear Calc 120.85 Est GFR (MDRD) Af Amer 128 Est GFR (MDRD) Non-Af 105 BUN/Creatinine Ratio 11.0 Glucose 94 Calcium 8.9 Total Bilirubin 0.20 AST 18 ALT 38 Alkaline Phosphatase 74 Total Creatine Kinase 175 Total Protein 7.5 Albumin 3.9 Globulin 3.6 Albumin/Globulin Ratio 1.1 Urine Opiates Screen NEGATIVE Urine Methadone Screen NEGATIVE Ur Barbiturates Screen NEGATIVE Ur Phencyclidine Scrn NEGATIVE Ur Amphetamines Screen POSITIVE H U Methamphetamin-MDMA POSITIVE H U Benzodiazepines Scrn NEGATIVE Urine Cocaine Screen NEGATIVE U Cannabinoids Screen POSITIVE H Ur Drug Screen Comment Ethyl Alcohol 02/12/21 16:43 WBC RBC Hgb Hct MCV MCH MCHC RDW Std Deviation RDW Coeff of Chucky Plt Count MPV Immature Gran % (Auto) Neut % (Auto) Lymph % (Auto) Woodson % (Auto) Eos % (Auto) Baso % (Auto) Absolute Neuts (auto) Absolute Lymphs (auto) Nucleated RBC % Sodium Potassium Chloride Carbon Dioxide Anion Gap BUN Creatinine Estim Creat Clear Calc Est GFR (MDRD) Af Amer Est GFR (MDRD) Non-Af BUN/Creatinine Ratio Glucose Calcium Total Bilirubin AST ALT Alkaline Phosphatase Total Creatine Kinase Total Protein Albumin Globulin Albumin/Globulin Ratio Urine Opiates Screen Urine Methadone Screen Ur Barbiturates Screen Ur Phencyclidine Scrn Ur Amphetamines Screen U Methamphetamin-MDMA U Benzodiazepines Scrn Urine Cocaine Screen U Cannabinoids Screen Ur Drug Screen Comment Ethyl Alcohol < 3.0 EKG Initial EKG: Attestation: I personally reviewed and interpreted this EKG as follows: Comments: Sinus rate of 93, no ST changes. Isolated T wave version leads III. Nonspecific. Discharge Plan Triage Chief Complaint: Mental Health ED Provider: Dane Edwards Dx/Rx/DC Orders Clinical Impression: Methamphetamine use, Acute psychosis Prescriptions: No Action NK RF: 0 Primary Care Provider: Care Physician,No Primary Referrals: Care Physician,No Primary [Primary Care Provider] - Disposition Disposition: Psychiatric Hospital or Unit Discharge Location: [facility]
[2021-02-12] MEDS: Ziprasidone IM 20 MG/ML VIAL IM (15:49)
--- NOTE | 2021-02-12 15:51 | ED.RN ---
THIS RN AT BEDSIDE AT 1518 TO ASSESS PT. PT STANDING IN CORNER OF ROOM WITH PT GOWN FALLING OFF OF LEFT SHOULDER. PT PULLING AT GOWN. PT MAKES REPEATED REPORTS, I AM GOING TO , ARE YOU GOING TO KILL ME? I AM GOING TO . [employer] AT BEDSIDE WITH PT. PT REFUSES TO SIT IN THE BED. PT ANXIOUSLY AROUND THE ROOM STATING DID YOU HE WHAT HE SAID, I AM GOING TO . PT UNABLE TO ANSWER BASIC QUESTIONS, BUT IS ABLE TO FOLLOW COMMANDS TO SIT IN THE CHAIR.
--- NOTE | 2021-02-12 16:48 | EKG12_ITS ---
Test Reason : Blood Pressure : / mmHG Vent. Rate : 093 BPM Atrial Rate : 093 BPM P-R Int : 156 ms QRS Dur : 088 ms QT Int : 366 ms P-R-T Axes : 032 026 018 degrees QTc Int : 455 ms Normal sinus rhythm Normal ECG Confirmed by MATHEW BECKFORD, LIBRA ([id number]), multimedia editor ERNIE FISCHER ([id number]) on 02/16/2021 8:01:56 AM Referred By: EVA/KELLY Confirmed By:LIBRA CARMONA MD
[2021-02-12 16:51] LABS: Amphetamine Urine VISTA POSITIVE (<1000 ng/mL); Barbiturate Urine VISTA NEGATIVE (< 200 ng/mL); Benzodiazepine Urine VISTA NEGATIVE (< 200 ng/mL); Cocaine Urine VISTA NEGATIVE (< 300 ng/mL); Ecstacy Urine VISTA POSITIVE (< 500 ng/mL); Methadone Urine VISTA NEGATIVE (< 300 ng/mL); PCP Urine VISTA NEGATIVE (< 25 ng/mL); THC Urine VISTA POSITIVE (< 50 ng/mL); Vista UDS pH Range 6
[2021-02-12 16:54] LABS: Absolute Lymphocyte Count 1.63 X10^3/uL (0.83-4.51); Absolute Neutrophil Count 2.6 X10^3/uL (2.0-7.7); Basophil# 0.02 X10^3/uL; Basophil% 0.4 % (0-1); Eosinophil# 0.07 X10^3/uL; Eosinophils% 1.4 % (0-5); Hematocrit 41.9 % (40-54); Hemoglobin 14.2 g/dL (13.0-16.5); Lymphocyte # 1.63 X10^3/ul (0.83-4.51); Lymphocyte % 32.2 % (19-41); Mean Corp Hgb Conc 33.9 g/dL (32-36); Mean Corpuscular Hgb 29.3 pg (27.0-32.0); Mean Corpuscular Volume 86.4 fL (80-94); Mean Platelet Vol. 9.9 fl (6.2-12.0); Monocyte# 0.71 X10^3/uL; NRBC Flagged by Analyzer 0 % (0-5); Neutrophil # 2.62 X10^3/uL (2.7-7.7); Neutrophil % 51.8 % (47-70); Platelet Count 247 K/mm3 (150-450); RBC Distribution Width CV 13.2 % (11.6-14.6); RBC Distribution Width SD 41.1 fl (35.1-43.9); Red Blood Count 4.85 M/mm3 (4.6-6.2); White Blood Count 5.1 K/mm3 (4.4-11.0)
[2021-02-12 17:21] LABS: Alcohol, Blood (Medical)-Serum < 3.0 mg/dL
[2021-02-12 17:30] LABS: ALB/GLOB Ratio 1.1 RATIO (0.9-2.4); AST(SGOT) 18 U/L (15-37); Alanine Aminotransfer ALT/SGPT 38 U/L (16-61); Albumin, Serum 3.9 g/dL (3.2-5.0); Alkaline Phosphatase 74 U/L (45-117); Anion Gap 9 (5-15); BUN 10 mg/dL (7-18); CPK Total, Creatine Kinase 175 U/L (39-308); Calcium,Total 8.9 mg/dL (8.5-10.1); Chloride 104 mmol/L (98-107); Creatinine, Serum 0.91 mg/dL (0.70-1.30); EST Glomerular Filtration Rate 105 mL/min (>60); Est Glom Filt Rate - Afr Amer 128 mL/min (>60); Estimated Creatinine Clearance 120.85 ml/min; Globulin 3.6 g/dL (2.2-4.2); Glucose 94 mg/dL (74-106); Potassium 3.2 mmol/L (3.5-5.1); Protein, Total 7.5 g/dL (6.4-8.2); Sodium Level 138 mmol/L (136-145)
[2021-02-12] MEDS: Potassium Chloride Oral Tablet 20 MEQ 40 MEQ PO (17:47)
--- NOTE | 2021-02-12 18:00 | CM.ED ---
SOCIAL WORK ASSESSMENT Referral Source: Dr. Edwards Reason for Consult: Mental Health Evaluation Chief Compliant: Patient presents [place] [employer] by [employer]. Patient presents with paranoia and delusions. Patient believes people are after him. Marital/Social History: Single Living Situation: [facility] Support/Resources: [facility] History: None Mental Health Treatment/History: Anxiety and depression. Not treated. Patient with meth induced psychosis and paranoia. Unable to care for self and daily needs. Triggers/Stressors: social stressors Coping Skills: None Substance Abuse History: Meth, opiates, alcohol Risk to Self/Others: Suicidal- Denies suicidal ideation. Homicidal- Patient voiced homicidal ideation. Mental Status Exam: Orientation- impaired Memory: fair Appearance/General Behavior: disheveled Mood/Affect: anxious, paranoid Communication Pattern: rambling Thought Process: hallucinations, delusions, paranoia General Intellectual Functioning: Average Judgement: poor Insight: poor Assessment: Patient presents to [facility] ER [place] by [employer]. Patient with paranoia and delusions that people are ?out to get me.? Patient with history of meth use. Patient has been seen multiple times in the last week in ER. Police report patient called 911 multiple times today. Patient requires inpatient psych hospitalization for stabilization. This worker to facilitate placement. Plan: Referral to inpatient psych for dual diagnosis. Stephanie Rodriguez, STITCH RUBBER, BOX BENDER
--- NOTE | 2021-02-12 19:20 | CM.ED ---
SOCIAL WORK Referral has been faxed and called to [facility]. Pending review at this time. Stephanie Rodriguez, SENIOR UI UX DEVELOPER, LOCAL BULK DRIVER
--- NOTE | 2021-02-12 20:05 | CM.ED ---
SOCIAL WORK Patient accepted [facility] by Dr. Montesinos to the Dual Dx Unit room 108A. Nurse to call report to [phone]. Call to Physician's, transport scheduled and report ETA of 2-3 hours (02-23p.) Staff updated. Copy of [facility] faxed per request. Plan: Molly Rodriguez, FINANCIAL ASSISTANT, SUGAR REFINER
[2021-02-13 01:42] VITALS: BP 119/70; PULSE 72; RESP 16; O2SAT 98
--- NOTE | 2021-02-13 01:42 | ED.RN ---
Pt easily awakened. cooperative. ambulated self from ER cot to EMS cot without incident. Belongings sent with pt.
== END 2021-02-13 01:43 ==
PROVIDERS: Emergency Provider Emergency Medicine
DX: F23 Brief psychotic disorder (principal); F32.9 Major depressive disorder, single episode, unspecified; F41.9 Anxiety disorder, unspecified; Z20.822 Contact with and (suspected) exposure to COVID-19; F17.210 Nicotine dependence, cigarettes, uncomplicated
CPT/HCPCS: 36415; 80053; 80307; 82077; 82550; 85025; 87426; 93005; 96372; 99285; J3486

== ENCOUNTER 2021-03-14 02:00 | Emergency (ER) | payer MEDICAID, SELFPAY ==
[2021-03-14 02:02] VITALS: BP 122/94; PULSE 116; RESP 18; TEMP 36.3; O2SAT 100; BMI 31.1
--- NOTE | 2021-03-14 02:07 | ED.VIS.BACK ---
HPI History of Present Illness Chief Complaint: Back Informant: patient and EMS Onset/Context/Timing Onset: Today Chronic pain exacerbated by: repeated movements Injury: lifting, repetitive motion and work related Timing: Continuous Quality: Aching Location: Lumbar Current Severity: Moderate Maximum Severity: Moderate Worsened by: improves with Movement, Bending and Lifting Relieved by: Remaining Still Associated Symptoms Associated Symptoms: Negative for Numbness, Tingling, Radiation to Right Leg, Radiation to Left Leg, Unable to Ambulate, Unable to Transfer, Urinary Retention, Urinary Incontinence, Constipation and Fecal Incontinence Narrative Narrative: Patient states he was shoveling sand at work today and it made the chronic discomfort in his low back worse. He has no new symptoms. No radiation into his lower extremities, numbness in his legs or saddle area, bowel or bladder dysfunction, or abdominal pain. He states he had a CT here around 2 months ago and was told he had multiple bulging disks. He does not have a doctor and has never followed up for any of this. Prior similar symptoms: Yes and With Prior Back Pain PFSH PFS Medical History Anxiety Depression Smoker Substance abuse URI (upper respiratory infection) Home Medications NK 01/23/21 [History Last Taken Unknown] Allergy/AdvReac Type Severity Reaction Status Date / Time No Known Allergies Allergy Verified 03/14/21 02:06 Social History household members: none Smoking Status: Current every day smoker tobacco type: cigarettes alcohol intake: never details: Per prior records he has history of alcohol use unable to determine substance use type: amphetamines and methamphetamine ROS ROS ED Constitutional Constitutional ED: Denies chills or fever(s) Gastrointestinal Gastrointestinal: Denies abdominal pain, constipation, fecal incontinence, nausea or vomiting Genitourinary Genitourinary ED: Reports other Details: no urinary retention ; Denies abdominal discomfort or urinary incontinence Musculoskeletal Musculoskeletal: Reports as per HPI and back pain; Denies neck pain Integumentary Denies rash or wounds Neurologic Neurologic: Denies headache(s), paresthesias or weakness EXAM Physical Exam Const Vital Signs: 03/14/21 02:02 Temperature 97.3 F L Temperature Source Temporal Pulse Rate 116 H Respiratory Rate 18 Blood Pressure 122/94 H Blood Pressure Mean 103 Pulse Ox 100 Positive well nourished and well developed Constitutional Narrative: Using cell phone for part of the evaluation. Able to sit forward without assistance. General Appearance ED: well developed and NAD HEENT Negative for trauma or tenderness Eyes PERRL and EOMs intact bilaterally Neck full ROM and supple GI normal to inspection, nondistended, normoactive bowel sounds, soft to palpation and non-tender Back/Spine normal to inspection Lumbar Spine / Lower Back: ROM limited, paraspinal muscle tenderness and straight leg raise negative bilaterally Extremity normal to inspection, full ROM and no pedal edema Neuro oriented x3 and no sensory deficits noted Sensorium / Orientation: alert Motor Exam: strength 5/5 throughout and clonus absent Deep Tendon Reflexes: Rt Patellar (L4): 2+, Lt Patellar (L4): 2+, Rt Ankle (S1): 2+ and Lt Ankle (S1): 2+ Deep Tendon Reflexes Back: Rt Patellar (L4): 2+, Lt Patellar (L4): 2+, Rt Ankle (S1): 2+ and Lt Ankle (S1): 2+ Plantar Reflex: Downgoing: bilateral Psych mental status grossly normal and thought process normal Skin no rashes or lesions noted and no wounds MDM MDM MDM Narrative Medical decision making narrative: Patient is filling out work-related injury information/report, however in my judgment this is a personal medical problem that he made worse by repetitive movements and lifting at work. He was given injections of Toradol and Norflex for his pain. He has a history of paranoid psychosis as well as alcohol abuse for which he was admitted to detox in the past methamphetamine use. He does not appear to be under the influence now, but given the fact that this patient is relatively well and having an exacerbation of chronic pain, I have no interest in putting him on narcotics at this time. Discharge Plan Triage Chief Complaint: Back ED Provider: Tirso Del Real Dx/Rx/DC Orders Clinical Impression: Acute exacerbation of chronic low back pain Instructions: ED Back Pain (Acute or Chronic) Prescriptions: No Action NK RF: 0 Primary Care Provider: Care Physician,No Primary Referrals: Cynthia Chowdary [NON-STAFF] - Disposition Disposition: Home, Self Care
--- NOTE | 2021-03-14 02:13 | ED.RN ---
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
--- NOTE | 2021-03-14 02:28 | ED.RN ---
patient not filing under workmans comp as he states it is a chronic back pain and not related to work and states he has been having ongoing issues r/y herniated discs.
--- NOTE | 2021-03-14 02:32 | NURSING ---
CALLED GUS ABOUT DRUG TESTING AND SHE WAS UNSURE OF IF THE COMPANY REQUIRED DRUG TESTING WELL. SHE RECOMMENDED PATIENT TRY AND GET A HOLD OF A MONITOR CAR OPERATOR/INDEPENDENT INSURANCE ADJUSTER. SHE ALSO SAID HIS BEST OPTION WAS TO GET A HOLD OF SOMEONE IN THE MORNING OR FIRST THING TUESDAY.
== END 2021-03-14 02:39 | disposition home or self-care (01) ==
LOC: ED 02:17
PROVIDERS: Emergency Provider Emergency Medicine
DX: M54.50 Low back pain, unspecified (principal); G89.29 Other chronic pain; F17.210 Nicotine dependence, cigarettes, uncomplicated
CPT/HCPCS: 99284

== ENCOUNTER 2021-03-15 23:57 | Emergency (ER) | payer MEDICAID, SELFPAY ==
[2021-03-15 23:57] VITALS: BP 157/91; PULSE 94; RESP 18; TEMP 37.2; O2SAT 99
[2021-03-15 23:58] VITALS: TEMP 37.2; BMI 28.0
--- NOTE | 2021-03-16 00:26 | RAD_ITS ---
STUDY: X-RAY - LUMBAR SPINE REASON FOR EXAM: Male, 30 years old. Injury/Pain TECHNIQUE: 3 view(s) of the lumbar spine were obtained. COMPARISON: None FINDINGS: Please see the impression. RAD/Lumbar Spine 2 or 3 Views IMPRESSION: No acute fracture or subluxation in the lumbar spine. Minimal multilevel lumbar spondylosis. No endplate erosion. Electronically Signed: Kem Kc MD at 0:57 EDT Tel , Service support ,
--- NOTE | 2021-03-16 00:26 | ED.VIS.BACK ---
HPI History of Present Illness Chief Complaint: Back Informant: patient Onset/Context/Timing Onset: Days (3) Context: Gradual Onset Chronic pain exacerbated by: lifting Timing: Continuous Quality: Sharp Location: Lumbar and Buttock Worsened by: improves with Movement Relieved by: Nothing Associated Symptoms Associated Symptoms: Negative for Numbness, Tingling, Radiation to Right Leg, Radiation to Left Leg, Fever, Abdominal Pain, Dysuria, Unable to Ambulate, Unable to Transfer, Urinary Retention, Urinary Incontinence, Constipation and Fecal Incontinence Narrative Narrative: Patient presents with low back pain that has been getting worse over the past 3 days. Patient states he was seen here yesterday for the same thing. Patient states his pain has not gotten any better. Patient states his pain is worse with movement. Patient states pain is over the lower lumbar area radiates into his buttocks. Patient denies any radiation down his legs. Patient denies any paresthesias or weakness. Patient denies any bowel or bladder changes. Patient denies any saddle anesthesia. Patient states he was doing some heavy lifting at work which made his pain worse. Patient states he has a history of 3 bulging disks. [facility] Medical History Anxiety Depression Smoker Substance abuse URI (upper respiratory infection) Home Medications naproxen 500 mg PO BID PRN #20 tab 03/16/21 [Rx Last Taken Unknown] Allergy/AdvReac Type Severity Reaction Status Date / Time No Known Allergies Allergy Verified 03/14/21 02:06 Social History household members: none Smoking Status: Current every day smoker tobacco type: cigarettes alcohol intake: never details: Per prior records he has history of alcohol use unable to determine substance use type: amphetamines and methamphetamine ROS ROS ED Constitutional Constitutional ED: Denies chills or fever(s) Eyes Eyes: Denies blurry vision or change in vision ENT ENT ED: Denies rhinorrhea or sore throat Cardiovascular Cardiovascular: Denies chest pain or palpitations Respiratory/Chest Respiratory/Chest: Denies cough or dyspnea Gastrointestinal Gastrointestinal: Denies nausea or vomiting Genitourinary Genitourinary ED: Denies dysuria or hematuria Musculoskeletal Musculoskeletal: Reports back pain; Denies neck pain Integumentary Denies abscess or rash Neurologic Neurologic: Denies headache(s) or weakness Allergic/Immunologic Allergic/Immunologic ED: Denies mouth swelling or urticaria EXAM Physical Exam Const Vital Signs: 03/15/21 23:57 03/15/21 23:58 Temperature 99 F 99 F Temperature Source Oral Oral Pulse Rate 94 Respiratory Rate 18 Blood Pressure 157/91 H Blood Pressure Mean 113 Pulse Ox 99 Oxygen Delivery Method Room Air Positive well nourished and well developed General Appearance ED: well developed HEENT Reports moist mucous membranes Neck supple Back/Spine Back/Spine Narrative: There is some mild tenderness of the lower lumbar spine in the midline. There is no bony crepitance or step-off. There is no edema or ecchymosis. There is mild paraspinal tenderness of the lumbar paraspinal muscles. Patient was able to sit up without difficulty. Strength is 5/5 bilaterally in the lower extremities. There are no sensory deficits. Lumbar Spine / Lower Back: straight leg raise negative bilaterally Extremity normal to inspection General Extremety ED: Negative for edema or tenderness General Extremity: Negative for edema Neuro oriented x3 and no sensory deficits noted Sensorium / Orientation: alert Motor Exam: strength 5/5 throughout Psych mental status grossly normal MDM MDM MDM Narrative Medical decision making narrative: X-rays of the lumbar spine were obtained. There are 3 views. On my interpretation, there is no fracture or spondylolisthesis. There are some mild degenerative changes. Radiologist also interpreted the x-rays and agrees. Due to the patient's history of opioid abuse, methamphetamine abuse, and alcohol abuse, I feel the patient should not be prescribed any opiate pain medication. Patient was given an injection of Toradol here. Patient was given a prescription for Naprosyn. Patient was instructed to follow-up with his primary care physician in 3 to 5 days. Patient understood and was agreeable with the plan. All questions were answered. Radiography X-Ray: LS SPine, Read by ED Physician, Read by Radiologist, No Fracture and Normal Bony Alignment Diagnostic Testing: Clinical Impression(s) from Imaging Studies Lumbar Spine X-Ray 03/16/21 00:26 IMPRESSION: No acute fracture or subluxation in the lumbar spine. Minimal multilevel lumbar spondylosis. No endplate erosion. Electronically Signed: Kem Kc MD at 0:57 EDT Tel , Service support , Discharge Plan Triage Chief Complaint: Back ED Provider: Alfonso Sheriff Dx/Rx/DC Orders Clinical Impression: Lumbar back pain Instructions: ED Back Sprain/Strain Prescriptions: New naproxen 500 MG tablet 500 mg PO BID PRN Qty: 20 RF: 0 Primary Care Provider: Care Physician,No Primary Referrals: Nakia Corcoran MD [STAFF PHYSICIAN] - 3-5 Days Care Physician,No Primary [Primary Care Provider] - Disposition Disposition: Home, Self Care
[2021-03-16] MEDS: Ketorolac 60 MG/2 ML Vial IM (01:30)
[2021-03-16 01:33] VITALS: PULSE 75; RESP 16
== END 2021-03-16 01:34 | disposition home or self-care (01) ==
PROVIDERS: Emergency Provider Emergency Medicine
DX: M54.50 Low back pain, unspecified (principal); G89.29 Other chronic pain; F17.210 Nicotine dependence, cigarettes, uncomplicated
CPT/HCPCS: 72100; 96372; 99283

== ENCOUNTER 2021-03-16 23:36 | Emergency (ER) | payer MEDICAID, SELFPAY ==
[2021-03-16 23:41] VITALS: TEMP 36.1; BMI 32.3
--- NOTE | 2021-03-16 23:43 | ED.RN ---
PT ARRIVES TO ED WITH PARANOIA AFTER USING METH YESTERDAY. [employer] RESOURCE OFFICER AND EXTENDED DAY TEACHER PRESENT WITH PT. PT IS TAKING MATTRESS OF BED, BELIEVES SOMETHING IS TRYING TO KILL HIM. UNABLE TO REDIRECT. UNABLE TO ASSESS, UNABLE TO OBTAIN VITALS. REPEATEDLY CALLING 911 WHILE STAFF AND OFFICERS ARE IN ROOM. RESTRAINED TO OBTAIN ASSESSMENT AND FOR PT AND STAFF SAFETY.
[2021-03-16] MEDS: Ziprasidone IM 20 MG/ML VIAL IM (23:58)
[2021-03-16] MEDS: LORazepam 2 MG/ML Syringe IM (23:58)
[2021-03-16 23:59] VITALS: RESP 16
--- NOTE | 2021-03-17 00:25 | EX.ED.DYSGE1 ---
HPI History of Present Illness Chief Complaint: Substance Abuse Informant: patient and police/deputy sheriff generalist/bailiff Narrative Narrative: 30-year-old male well-known to the emergency room for his frequent visits presents tonight the deputy sheriff generalist/bailiff's department for paranoia. This is very typical for the patient to come and paranoid after drug use. The patient is cowering in the corner of the room wrapping mattresses off the bed jumping to another spot of the room because he sees a shadow. He cannot provide me any meaningful information [facility] Medical History Anxiety Depression Smoker Substance abuse URI (upper respiratory infection) Home Medications NK 03/17/21 [History Last Taken Unknown] Allergy/AdvReac Type Severity Reaction Status Date / Time No Known Allergies Allergy Verified 03/16/21 23:59 Social History household members: none Smoking Status: Current every day smoker tobacco type: cigarettes alcohol intake: never details: Per prior records he has history of alcohol use unable to determine substance use type: amphetamines and methamphetamine ROS ROS ED Review of Systems ROS Unobtainable: due to mental status EXAM Physical Exam Const Vital Signs: 03/16/21 23:41 03/16/21 23:59 03/17/21 00:37 Temperature 97 F L Temperature Source Temporal Pulse Rate 81 Respiratory Rate 16 13 Blood Pressure 124/85 H Blood Pressure Mean 98 Pulse Ox 100 03/17/21 01:00 03/17/21 02:00 03/17/21 03:00 Temperature Temperature Source Pulse Rate 102 H 118 H Respiratory Rate 19 H 18 16 Blood Pressure 130/78 H 118/77 Blood Pressure Mean 95 90 Pulse Ox 94 99 03/17/21 04:00 03/17/21 05:00 Temperature Temperature Source Pulse Rate 81 Respiratory Rate 18 16 Blood Pressure 118/76 Blood Pressure Mean 90 Pulse Ox 99 Positive well nourished and well developed General Appearance ED: well developed HEENT Reports normocephalic, head/scalp atraumatic, TM's clear and moist mucous membranes Negative for trauma Tympanic Membrane ED: Yes TM's clear Eyes PERRL and EOMs intact bilaterally Neck no lymphadenopathy, supple and no JVD Resp normal respiratory effort and clear to auscultation bilaterally Cardio regular rate and no murmurs Rate: tachycardic GI normal to inspection, nondistended, normoactive bowel sounds and non-tender Palpation: soft Back/Spine no CVA tenderness and normal ROM Extremity normal to inspection General Extremety ED: Negative for edema General Extremity: Negative for edema Neuro CN's II-XII intact bilaterally Sensorium / Orientation: alert and orientation impaired Motor Exam: strength 5/5 throughout Psych Psych Narrative: Patient is acting paranoid. Nonlinear thinking. He appears internally stimulated. Mood & Affect: Negative for depressed or tearful Skin no rashes or lesions noted and no wounds MDM MDM MDM Narrative Medical decision making narrative: Patient received Geodon and Ativan. He will be observed. I believe this is all drug-induced paranoia. Patient slept woke up and was feeling significantly better. He was discharged home Discharge Plan Triage Chief Complaint: Substance Abuse ED Provider: Ramiro Greene Dx/Rx/DC Orders Clinical Impression: Acute paranoia, Drug-induced psychotic disorder Instructions: ED Psychosis Prescriptions: No Action NK RF: 0 Primary Care Provider: Care Physician,No Primary Referrals: Care Physician,No Primary [Primary Care Provider] - [facility] [STAFF PHYSICIAN] - As soon as possible (For drug rehab) Disposition Disposition: Home, Self Care Discharge Date/Time: 03/17/21 05:22
[2021-03-17 00:37] VITALS: BP 124/85; PULSE 81; RESP 13; O2SAT 100
[2021-03-17 01:00] VITALS: BP 130/78; PULSE 102; RESP 19; O2SAT 94
[2021-03-17 02:00] VITALS: BP 118/77; PULSE 118; RESP 18; O2SAT 99
[2021-03-17 03:00] VITALS: RESP 16
[2021-03-17 04:00] VITALS: BP 118/76; PULSE 81; RESP 18; O2SAT 99
[2021-03-17 05:00] VITALS: RESP 16
== END 2021-03-17 05:22 | disposition home or self-care (01) ==
LOC: ED 03-17 00:42
PROVIDERS: Emergency Provider Emergency Medicine
DX: F19.959 Other psychoactive substance use, unspecified with psychoactive substance-induced psychotic disorder, unspecified (principal); F22 Delusional disorders; F17.210 Nicotine dependence, cigarettes, uncomplicated
CPT/HCPCS: 96372; 99284; J3486

== ENCOUNTER 2021-03-17 20:21 | Emergency (ER) | payer MEDICAID, SELFPAY ==
[2021-03-17 20:22] VITALS: BP 144/91; PULSE 108; RESP 18; TEMP 36.6; O2SAT 99; BMI 27.3
[2021-03-17] MEDS: Ziprasidone IM 20 MG/ML VIAL IM (21:03)
--- NOTE | 2021-03-17 23:33 | EX.ED.DYSGE1 ---
HPI History of Present Illness Chief Complaint: Mental Health Informant: patient and EMS Narrative Narrative: Patient presents via EMS secondary to paranoia. Per EMS report he called stating that he wanted to go to [facility] for detox from meth and fentanyl. When I interviewed the patient he is extremely paranoid and states that he is due to enter a rehab program tomorrow. He denies suicidal or homicidal ideation. He tells me he has not used drugs in 2 days. PFSH PFS Medical History Anxiety Depression Smoker Substance abuse URI (upper respiratory infection) Home Medications NK 03/17/21 [History Last Taken Unknown] Allergy/AdvReac Type Severity Reaction Status Date / Time No Known Allergies Allergy Verified 03/17/21 20:26 Social History household members: none Smoking Status: Current every day smoker tobacco type: cigarettes alcohol intake: never details: Per prior records he has history of alcohol use unable to determine substance use type: amphetamines and methamphetamine ROS ROS ED Review of Systems ROS Unobtainable: due to mental condition Constitutional Constitutional ED: Denies chills or fever(s) Gastrointestinal Gastrointestinal: Denies vomiting Psychiatric Psychiatric: Reports anxiety; Denies suicidal ideation or suicidal thoughts EXAM Physical Exam Narrative Exam Narrative: Patient very anxious and hiding in the corner of the room. He feels that there is someone after him. He asked me to move the sheet so he can check under the bed and move multiple items in the room so he can make sure there is no one in the room with him. Const Vital Signs: 03/17/21 20:22 Temperature 97.9 F Temperature Source Oral Pulse Rate 108 H Respiratory Rate 18 Blood Pressure 144/91 H Blood Pressure Mean 108 Pulse Ox 99 Oxygen Delivery Method Room Air Positive well nourished and well developed General Appearance ED: well developed HEENT Reports moist mucous membranes Neck supple Resp normal respiratory effort and clear to auscultation bilaterally Cardio regular rate and regular rhythm GI normal to inspection, nondistended, normoactive bowel sounds and non-tender Palpation: soft Neuro Sensorium / Orientation: alert Psych Psych Narrative: As noted above, patient displaying significant paranoia. Denies suicidal or homicidal ideation. MDM MDM MDM Narrative Medical decision making narrative: Patient did agree that he would like something to help him calm down. He was given 20 mg of Geodon. I did review his recent ER stays with similar presentations. Treatment and Re-Evaluation Comments:: On repeat evaluation patient sleeping comfortably. Patient be signed out to oncoming physician for further observation. Once awake patient will be evaluated to ensure no suicidal homicidal ideation. I anticipate he will be able to be discharged to follow-up with his detox program tomorrow as planned. Discharge Plan Triage Chief Complaint: Mental Health ED Provider: Ana Pedroza Dx/Rx/DC Orders Clinical Impression: Paranoia, Methamphetamine use Instructions: Addiction: Getting Help, ED Drug Abuse Prescriptions: No Action NK RF: 0 Primary Care Provider: Care Physician,No Primary Referrals: Care Physician,No Primary [Primary Care Provider] - [facility] [STAFF PHYSICIAN] - As soon as possible Disposition Disposition: Home, Self Care
[2021-03-18 01:38] VITALS: PULSE 59; RESP 16; O2SAT 100
[2021-03-18 05:52] VITALS: PULSE 88; RESP 18; O2SAT 99
[2021-03-18 09:16] VITALS: PULSE 78; RESP 16; O2SAT 99
--- NOTE | 2021-03-18 09:16 | ED.RN ---
pt upset that we didnt wake him up at 7. pt was supposed to call [facility] this am at 8am
== END 2021-03-18 09:16 | disposition home or self-care (01) ==
PROVIDERS: Emergency Provider Emergency Medicine
DX: F22 Delusional disorders (principal); F15.90 Other stimulant use, unspecified, uncomplicated; F17.210 Nicotine dependence, cigarettes, uncomplicated
CPT/HCPCS: 96372; 99284; J3486

== ENCOUNTER 2021-08-07 12:46 | Emergency (ER) | payer MEDICAID, SELFPAY ==
[2021-08-07] VITALS (8 sets, daily range): BP systolic 102; BP diastolic 74; PULSE 111–162; RESP 15–18; TEMP 35; O2SAT 94–97; BMI 31.7
--- NOTE | 2021-08-07 14:21 | EKG12_ITS ---
Test Reason : MENTAL HEALTH Blood Pressure : / mmHG Vent. Rate : 129 BPM Atrial Rate : 129 BPM P-R Int : 124 ms QRS Dur : 076 ms QT Int : 270 ms P-R-T Axes : 047 054 025 degrees QTc Int : 395 ms Sinus tachycardia Otherwise normal ECG Confirmed by MATHEW BECKFORD, LIBRA ([id number]), slot editor ERNIE FISCHER ([id number]) on 08/11/2021 11:11:18 AM Referred By: TERRI Confirmed By:LIBRA CARMONA MD
--- NOTE | 2021-08-07 14:42 | EX.ED.VIS.PS ---
HPI <MARISOL Cardenas - Last Filed: 08/07/21 20:55> HPI - Psych History of Present Illness Chief Complaint: Mental Health Narrative Narrative: 31-year-old male with history of anxiety, substance abuse specifically methamphetamine presents to the emergency department with paranoia secondary to relapsing on methamphetamine. Patient was recently in a rehab facility, per the please officer, she has not seen him in several months. Patient states that he relapsed 2 days ago has been smoking meth and not been sleeping. Patient arrives with bizarre behavior, patient is very paranoid stating that people are out to kill him, patient thinks that someone is coming up behind him. Patient denies any thoughts of self-harm or homicidal ideation. PFSH <MARISOL Cardenas - Last Filed: 08/07/21 20:55> [facility] Medical History Anxiety Depression Smoker Substance abuse URI (upper respiratory infection) Home Medications NK 03/17/21 [History Last Taken Unknown] Allergy/AdvReac Type Severity Reaction Status Date / Time No Known Allergies Allergy Verified 08/07/21 12:50 Social History household members: none Smoking Status: Current every day smoker tobacco type: cigarettes alcohol intake: never details: Per prior records he has history of alcohol use unable to determine substance use type: amphetamines and methamphetamine ROS <MARISOL Cardenas - Last Filed: 08/07/21 20:55> ROS ED ROS Narrative Constitutional: Negative for fever, chills, weight loss or gain, weakness Eyes: Negative for vision loss, vision change, double vision ENT: Negative for any hearing changes, ringing in the ears, dizziness, discharge, pain Nose: Negative for any congestion, runny nose, sinus pain, allergies Throat: Negative for any sore throat hoarseness, voice changes, Cardiovascular: Negative for any chest pain, tightness, palpitations, racing heartbeat Respiratory: Negative for any coughs, sputum production, coughing, hemoptysis, shortness of breath, shortness of breath on exertion, Gastrointestinal: Negative for any abdominal pain, nausea, vomiting, diarrhea, constipation, blood in stool, blood in vomit : Negative for any urinary frequency, incontinence, dysuria, retention, blood in urine Muscle skeletal: Negative for any muscle joint pain, stiffness, myalgias, arthralgias, neck pain, back pain Neurological: Negative for any headache, head injury, dizziness, syncope, numbness or tingling Skin: Negative for any rashes, lumps, itching, abrasions, lacerations Psychiatric: Negative for any depression, suicidal ideation, homicidal ideation. Positive for anxiety, paranoia, bizarre behavior Hematologic: Negative for any easy bruising, excessive bruising, easy bleeding Allergies: Negative for any eczema, hives, rash EXAM <MARISOL Cardenas - Last Filed: 08/07/21 20:55> Physical Exam Narrative Exam Narrative: Patient arrives diaphoretic, tachycardic, he is constantly looking around, grinding his teeth and cannot sit still. Patient states he used methamphetamine earlier today, has not slept in 2 days. Patient denies any suicidal, homicidal ideation. Patient states that he relapsed 2 days ago. Patient is acting odd Const Vital Signs: 08/07/21 12:47 08/07/21 15:36 08/07/21 16:27 Temperature 95 F L Temperature Source Temporal Pulse Rate 162 H 144 H Respiratory Rate 18 16 15 Pulse Ox 94 97 Oxygen Delivery Method Room Air Room Air 08/07/21 17:56 08/07/21 18:12 08/07/21 20:53 Temperature Temperature Source Pulse Rate 140 H Respiratory Rate 16 16 16 Pulse Ox Oxygen Delivery Method Positive well nourished, well developed and unkempt General Appearance ED: unkempt and well developed HEENT normocephalic Eyes Eyes Narrative: Patient has dilated pupils they are reactive to light. Neck supple Resp normal respiratory effort and clear to auscultation bilaterally Cardio Rate: regular rate Rhythm: regular rhythm GI non-tender and non-distended Palpation: soft Back/Spine no CVA tenderness Neuro Neuro Narrative: Patient is hard to redirect, patient is not follow commands patient appears to be under the influence Sensorium / Orientation: alert Psych Appearance: unkempt Attitude: paranoid, withdrawn, bizarre, guarded and agitated Activity / Motor Behavior: psychomotor agitation, fidgetting and hyperactive Speech: incoherent and excessive Mood & Affect: anxious Thought Process: disorganized and confused Skin Skin Narrative: Patient showing diaphoresis. <Dr. Alfonso Sheriff, DO - Last Filed: 08/07/21 21:16> Physical Exam Const Vital Signs: 08/07/21 12:47 08/07/21 15:36 08/07/21 16:27 Temperature 95 F L Temperature Source Temporal Pulse Rate 162 H 144 H Respiratory Rate 18 16 15 Pulse Ox 94 97 Oxygen Delivery Method Room Air Room Air 08/07/21 17:56 08/07/21 18:12 08/07/21 20:53 Temperature Temperature Source Pulse Rate 140 H Respiratory Rate 16 16 16 Pulse Ox Oxygen Delivery Method MDM <ELYSIA CardenasC - Last Filed: 08/07/21 20:55> [facility] Narrative Medical decision making narrative: Patient arrives altered with bizarre behavior, paranoia secondary to drug use, patient was brought in by please for evaluation. Patient did not state any suicidal homicidal behavior. Due to the patient's drug use, the patient did receive basic laboratory values as well as a drug screen. Patient's laboratory values show an elevated white blood count of 16.9 this could be secondary to the drug use, patient CBC was unremarkable, patient's drug screen were positive for amphetamines, MDMA/ecstasy, cocaine, marijuana. Patient has admitted to using ice this is what he considers methamphetamine. I did speak with social work, patient currently does not want any treatment, patient is not suicidal, is not homicidal. Patient is eating and drinking here however he is still acting bizarre, paranoid, patient is currently being watched, and we reevaluated when the patient is acting more appropriate. Patient is currently eating, drinking by mouth. On reassessment, patient has been here for over 7 hours, the patient remains paranoid, acting inappropriate and bizarre. Talking with the patient several times, he does state that he would like to have rehabilitation, and to be admitted to a hospital for his issues. Due to the patient's continued behavior, continue to be harmful threat to himself and others in this paranoid state secondary to a host of drugs, the patient be pink slipped. Social work is now in the process of finding a patient the proper setting for rehabilitation. Lab Data Labs: Laboratory Results - last 24 hr 08/07/21 08/07/2122 15:15 15:15 15:24 WBC 16.9 H RBC 5.79 Hgb 17.1 H Hct 49.2 MCV 85.0 MCH 29.5 MCHC 34.8 RDW Std Deviation 39.5 RDW Coeff of Chucky 12.8 Plt Count 304 MPV 9.7 Immature Gran % (Auto) 0.500 Neut % (Auto) 74.3 H Lymph % (Auto) 14.4 L [place] % (Auto) 10.4 H Eos % (Auto) 0.1 Baso % (Auto) 0.3 Absolute Neuts (auto) 12.6 H Absolute Lymphs (auto) 2.44 Nucleated RBC % 0 Differential Comment SCANNED Diff Path Review May foll Sodium 137 Potassium 3.8 Chloride 104 Carbon Dioxide 23.0 Anion Gap 10 BUN 24 H Creatinine 1.24 Estim Creat Clear Calc 87.90 Est GFR (MDRD) Af Amer 88 Est GFR (MDRD) Non-Af 73 BUN/Creatinine Ratio 19.4 Glucose 99 Calcium 9.6 TSH 2.83 Urine Color Urine Clarity Urine pH Ur Specific [place] Urine Protein Urine Glucose (UA) Urine Ketones Urine Occult Blood Urine Nitrite Urine Bilirubin Urine Urobilinogen Ur Leukocyte Esterase Urine RBC Urine WBC Ur Squamous Epith Cells Amorphous Sediment Urine Bacteria Urine Mucus Urine Opiates Screen Urine Methadone Screen Ur Barbiturates Screen Ur Phencyclidine Scrn Ur Amphetamines Screen MDMA (Ecstasy) Screen U Benzodiazepines Scrn Urine Cocaine Screen U Cannabinoids Screen Ur Drug Screen Comment Ethyl Alcohol < 3.0 08/07/21 08/07/21 16:00 16:00 WBC RBC Hgb Hct MCV MCH MCHC RDW Std Deviation RDW Coeff of Chucky Plt Count MPV Immature Gran % (Auto) Neut % (Auto) Lymph % (Auto) [place] % (Auto) Eos % (Auto) Baso % (Auto) Absolute Neuts (auto) Absolute Lymphs (auto) Nucleated RBC % Differential Comment Diff Path Review Sodium Potassium Chloride Carbon Dioxide Anion Gap BUN Creatinine Estim Creat Clear Calc Est GFR (MDRD) Af Amer Est GFR (MDRD) Non-Af BUN/Creatinine Ratio Glucose Calcium TSH Urine Color Yellow Urine Clarity Turbid Urine pH 5.0 Ur Specific [place] 1.030 Urine Protein 100 H Urine Glucose (UA) 50 H Urine Ketones 50 H Urine Occult Blood 10 H Urine Nitrite Negative Urine Bilirubin 1 H Urine Urobilinogen Normal Ur Leukocyte Esterase Negative Urine RBC 0-5 SEEN Urine WBC 0-5 SEEN Ur Squamous Epith Cells 0 SEEN Amorphous Sediment 3+ Urine Bacteria 2+ Urine Mucus 0 SEEN Urine Opiates Screen NEGATIVE Urine Methadone Screen NEGATIVE Ur Barbiturates Screen NEGATIVE Ur Phencyclidine Scrn NEGATIVE Ur Amphetamines Screen POSITIVE H MDMA (Ecstasy) Screen POSITIVE H U Benzodiazepines Scrn NEGATIVE Urine Cocaine Screen POSITIVE H U Cannabinoids Screen POSITIVE H Ur Drug Screen Comment Ethyl Alcohol <Dr. Alfonso Sheriff, DO - Last Filed: 08/07/21 21:16> MDM MDM Narrative Medical decision making narrative: Patient was seen with me. I did a [id number] examination with the patient. I agree with the history and physical examination. Patient presents with paranoid behavior that became worse tonight. Patient admits to relapsing on methamphetamines. Patient is having increasing paranoid ideations. Patient states that he thinks people are out to kill him. Patient denies any suicidal or homicidal ideations. Patient has not been sleeping due to methamphetamine abuse. This is making his paranoia worse. Vital signs are stable. Patient is afebrile. Patient is in no acute distress. Patient is somewhat agitated on examination. Patient denies any suicidal homicidal ideations. Cranial nerves II through XII are intact. Strength is 5/5 bilaterally upper and lower extremities. Patient is ambulating without difficulty. Patient is pacing around the room. Patient appears to be externally stimulated. CBC shows a mild leukocytosis of 16.9. Basic metabolic profile was within normal limits. TSH was normal. Serum alcohol level was normal. Urinalysis does not show any evidence of urinary tract infection. Urine tox screen was positive for cocaine, cannabinoids, methamphetamines, and amphetamines. Patient remained paranoid and externally stimulated here in the emergency department. warp worker was in to evaluate the patient and felt that he would benefit from inpatient treatment at a psychiatric facility. She is attempting get the patient placed. Lab Data Attestation: I reviewed the patient's lab results. Labs: Laboratory Results - last 24 hr 08/07/21 08/07/21 08/07/21 15:15 15:15 15:24 WBC 16.9 H RBC 5.79 Hgb 17.1 H Hct 49.2 MCV 85.0 MCH 29.5 MCHC 34.8 RDW Std Deviation 39.5 RDW Coeff of Chucky 12.8 Plt Count 304 MPV 9.7 Immature Gran % (Auto) 0.500 Neut % (Auto) 74.3 H Lymph % (Auto) 14.4 L [place] % (Auto) 10.4 H Eos % (Auto) 0.1 Baso % (Auto) 0.3 Absolute Neuts (auto) 12.6 H Absolute Lymphs (auto) 2.44 Nucleated RBC % 0 Differential Comment SCANNED Diff Path Review May foll Sodium 137 Potassium 3.8 Chloride 104 Carbon Dioxide 23.0 Anion Gap 10 BUN 24 H Creatinine 1.24 Estim Creat Clear Calc 87.90 Est GFR (MDRD) Af Amer 88 Est GFR (MDRD) Non-Af 73 BUN/Creatinine Ratio 19.4 Glucose 99 Calcium 9.6 TSH 2.83 Urine Color Urine Clarity Urine pH Ur Specific [place] Urine Protein Urine Glucose (UA) Urine Ketones Urine Occult Blood Urine Nitrite Urine Bilirubin Urine Urobilinogen Ur Leukocyte Esterase Urine RBC Urine WBC Ur Squamous Epith Cells Amorphous Sediment Urine Bacteria Urine Mucus Urine Opiates Screen Urine Methadone Screen Ur Barbiturates Screen Ur Phencyclidine Scrn Ur Amphetamines Screen MDMA (Ecstasy) Screen U Benzodiazepines Scrn Urine Cocaine Screen U Cannabinoids Screen Ur Drug Screen Comment Ethyl Alcohol < 3.0 08/07/21 08/07/21 16:00 16:00 WBC RBC Hgb Hct MCV MCH MCHC RDW Std Deviation RDW Coeff of Chucky Plt Count MPV Immature Gran % (Auto) Neut % (Auto) Lymph % (Auto) [place] % (Auto) Eos % (Auto) Baso % (Auto) Absolute Neuts (auto) Absolute Lymphs (auto) Nucleated RBC % Differential Comment Diff Path Review Sodium Potassium Chloride Carbon Dioxide Anion Gap BUN Creatinine Estim Creat Clear Calc Est GFR (MDRD) Af Amer Est GFR (MDRD) Non-Af BUN/Creatinine Ratio Glucose Calcium TSH Urine Color Yellow Urine Clarity Turbid Urine pH 5.0 Ur Specific [place] 1.030 Urine Protein 100 H Urine Glucose (UA) 50 H Urine Ketones 50 H Urine Occult Blood 10 H Urine Nitrite Negative Urine Bilirubin 1 H Urine Urobilinogen Normal Ur Leukocyte Esterase Negative Urine RBC 0-5 SEEN Urine WBC 0-5 SEEN Ur Squamous Epith Cells 0 SEEN Amorphous Sediment 3+ Urine Bacteria 2+ Urine Mucus 0 SEEN Urine Opiates Screen NEGATIVE Urine Methadone Screen NEGATIVE Ur Barbiturates Screen NEGATIVE Ur Phencyclidine Scrn NEGATIVE Ur Amphetamines Screen POSITIVE H MDMA (Ecstasy) Screen POSITIVE H U Benzodiazepines Scrn NEGATIVE Urine Cocaine Screen POSITIVE H U Cannabinoids Screen POSITIVE H Ur Drug Screen Comment Ethyl Alcohol Discharge Plan Triage Chief Complaint: Mental Health ED Midlevel Provider: Cruz Paul ED Provider: Alfonso Sheriff Dx/Rx/DC Orders Prescriptions: No Action NK RF: 0 Primary Care Provider: Care Physician,No Primary
[2021-08-07] MEDS: LORazepam 2 MG/ML Syringe 1 MG IM (15:25)
[2021-08-07 15:35] LABS: Absolute Lymphocyte Count 2.44 X10^3/uL (0.83-4.51); Absolute Neutrophil Count 12.6 X10^3/uL (2.0-7.7); Basophil# 0.05 X10^3/uL; Basophil% 0.3 % (0-1); Eosinophil# 0.01 X10^3/uL; Eosinophils% 0.1 % (0-5); Hematocrit 49.2 % (40-54); Hemoglobin 17.1 g/dL (13.0-16.5); Lymphocyte # 2.44 X10^3/ul (0.83-4.51); Lymphocyte % 14.4 % (19-41); Mean Corp Hgb Conc 34.8 g/dL (32-36); Mean Corpuscular Hgb 29.5 pg (27.0-32.0); Mean Platelet Vol. 9.7 fl (6.2-12.0); Monocyte# 1.76 X10^3/uL; Monocyte% 10.4 % (0-10); NRBC Flagged by Analyzer 0 % (0-5); Neutrophil # 12.58 X10^3/uL (2.7-7.7); Neutrophil % 74.3 % (47-70); POSITIVE DIFFERENTIAL YES; Platelet Count 304 K/mm3 (150-450); RBC Distribution Width CV 12.8 % (11.6-14.6); RBC Distribution Width SD 39.5 fl (35.1-43.9); Red Blood Count 5.79 M/mm3 (4.6-6.2); White Blood Count 16.9 K/mm3 (4.4-11.0)
[2021-08-07 15:45] LABS: Differential Indicated SCAN CRITERIA MET
[2021-08-07 15:58] LABS: Anion Gap 10 (5-15); BUN 24 mg/dL (7-18); BUN/Creat Ratio 19.4 RATIO (10-20); Calcium,Total 9.6 mg/dL (8.5-10.1); Chloride 104 mmol/L (98-107); Creatinine, Serum 1.24 mg/dL (0.70-1.30); EST Glomerular Filtration Rate 73 mL/min (>60); Est Glom Filt Rate - Afr Amer 88 mL/min (>60); Glucose 99 mg/dL (74-106); Potassium 3.8 mmol/L (3.5-5.1); Sodium Level 137 mmol/L (136-145); Thyroid Stim Hormone (TSH) 2.83 uIU/mL (0.358-3.74)
[2021-08-07 16:32] LABS: Differential Comment SCANNED
[2021-08-07 16:39] LABS: Alcohol, Blood (Medical)-Serum < 3.0 mg/dL
[2021-08-07 16:42] LABS: Amphetamine Urine VISTA POSITIVE (<1000 ng/mL); Barbiturate Urine VISTA NEGATIVE (< 200 ng/mL); Benzodiazepine Urine VISTA NEGATIVE (< 200 ng/mL); Cocaine Urine VISTA POSITIVE (< 300 ng/mL); Ecstacy Urine VISTA POSITIVE (< 500 ng/mL); Methadone Urine VISTA NEGATIVE (< 300 ng/mL); PCP Urine VISTA NEGATIVE (< 25 ng/mL); THC Urine VISTA POSITIVE (< 50 ng/mL); Vista UDS pH Range 5
--- NOTE | 2021-08-07 18:29 | CM.ED ---
Addendum entered by Rowan Edmundo 08/07/21 20:15: Patient continues to voice paranoia and sits in the chair in the ED room and not the bed. He makes statements about people wanting to harm him and killing him. Patient is requesting inpatient psych hospitalization and told RN I need help for psych and AOD issues. SLEEP LAB TECHNICIAN and SW in agreement with plan for inpatient psych Rowan Wyatt NEERAJ ROSASWS Original Note: SW Note Referral Source: SLEEP LAB TECHNICIAN Referral Reason: Paranoia Informant: Patient and chart review Chief Complaint: I am trying to avoid being shot in the head . SW asked patient who is attempting to shoot him and patient did not respond. Patient was asked he has been feeling this way and patient said since I heard about being murdered. Marital History: Single Living Situation: [place] Support and Resources: Julian and Darian patient's sponsor and best friend History: No Education and Employment History: Patient asked why are you asking these questions. 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 Patient said that he has his GED. 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 Mental Health Treatment: Patient said that he is not on any psych medication. Patient said that his mental health treatment is hands on. Triggers/Stressors: getting killed Coping Skills I am freaking out.. not sure what I did.. I want to apologize so I can fix it. Patient then asked what is behind that extra curtain? Abuse Issues: Patient denied Substance Abuse: Patient denied. However patients drug screen indicated drug use, including meth. Patient stated that he was in recovery but was out for 2 days. Patient was asked what recovery program and patient did not answer. Risk to Self and Others: Patient denied SI and HI Patient denied violence to self or others. MSE Orientation: x3 Memory: Impaired due to drug use Appearance: Disheveled Mood and Affect: Bizarre due to drug use Communication Pattern: Paranoid Thought Process: Paranoid Intellectual Functioning: Average Judgement: Impaired Insight: Poor SW updated SLEEP LAB TECHNICIAN Cruz. Plan is to reevaluate patient due to his drug use and the affects the drugs are having on his thought process. Rowan BandaCodyWS
[2021-08-07] MEDS: LORazepam 1 MG Tablet PO (20:09)
[2021-08-07] MEDS: Ziprasidone IM 20 MG/ML VIAL IM (20:35)
--- NOTE | 2021-08-07 20:35 | CM.ED ---
Per VIRTUAL CLASSROOM MANAGER Patient continues to be unsafe. SW made referral to [facility]. BENEDICTO faxed referral packet to [facility]. Rowan IBANEZ
[2021-08-07 20:46] LABS: Color, Urine Yellow (Yellow); Glucose, Dipstick 50 mg/dl (Normal); Ketone-Dipstick 50 mg/dl (Negative); Leukocyte Esterase-Dipstick Negative /ul (Negative); Mucous, Urine 0 SEEN /hpf (<or=2+); Nitrite-Dipstick Negative (Negative); Occult Blood-Urine 10 /ul (Negative); Protein-Dipstick 100 mg/dl (Negative); Squamous Epithelial Cells - UA 0 SEEN /hpf (0-5); Urine Bilirubin Dipstick 1 mg/dL (Negative); Urine Clarity Turbid (Clear); Urine Urobilinogen Normal (Normal)
[2021-08-07 20:59] LABS: Red Blood Cells-Urine 0-5 SEEN /hpf (0-5); White Blood Cells 0-5 SEEN /hpf (0-5)
[2021-08-07 21:04] LABS: Amorphous Sediment 3+; Bacteria 2+ /hpf (None Seen)
--- NOTE | 2021-08-07 21:04 | ED.RN ---
PT PARANOID, INSISTS PEOPLE ARE IN THE EMERGENCY DEPT WHO WILL KILL HIM. STATES CUPBOARDS HAVE ENTRANCEWAYS TO DANGEROUS PLACES, COUNTERTOPS ARE MOVING. DIFFICULT TO REDIRECT.
--- NOTE | 2021-08-07 22:37 | CM.ED ---
BENEDICTO note BENEDICTO called Constanza at [facility]. She requested updated vitals, meds given list and CK level. RN will get vitals and discharge specialist got order for CK level. BENEDICTO advised Constanza to call currency exchange specialist regarding if they could accept patient at [facility]. BENEDICTO updated currency exchange specialist Rowan IBANEZ
[2021-08-07 22:53] LABS: CPK Total, Creatine Kinase 386 U/L (39-308)
[2021-08-08 00:20] VITALS: RESP 16; O2SAT 97
[2021-08-08 01:34] VITALS: PULSE 84; RESP 18; O2SAT 97
[2021-08-08 02:48] VITALS: RESP 16
[2021-08-08 06:14] VITALS: BP 114/72; PULSE 76; RESP 16; RESP 17; TEMP 36; O2SAT 98
--- NOTE | 2021-08-08 09:26 | ED.RN ---
GENERATIONS CONTACTED. ASKED THEM TO LET ADEEL KNOW HE LEFT SOME OF HIS CARDS HERE AT [facility]
--- NOTE | 2021-08-08 09:28 | ED.RN ---
CARDS GIVEN TO SECURITY
[2021-08-11 13:53] LABS: Pathologist Review Reviewed
== END 2021-08-08 08:36 ==
PROVIDERS: Emergency Medicine; Nurse Practitioner; Emergency Provider Emergency Medicine; Visit Provider Emergency Medicine
DX: F15.10 Other stimulant abuse, uncomplicated (principal); F32.A Depression, unspecified; F41.9 Anxiety disorder, unspecified; D72.829 Elevated white blood cell count, unspecified; F17.210 Nicotine dependence, cigarettes, uncomplicated
CPT/HCPCS: 80048; 80307; 81001; 82077; 82550; 84443; 85025; 87811; 93005; 96372; 99285; J3486

== ENCOUNTER 2021-09-12 22:05 | Emergency (ER) | payer MEDICAID, SELFPAY ==
[2021-09-12 22:06] VITALS: BP 172/82; PULSE 124; RESP 18; TEMP 36.6; O2SAT 100; BMI 34.0
--- NOTE | 2021-09-12 23:28 | EDS_ITS ---
HPI History of Present Illness Chief Complaint: Substance Abuse Narrative Narrative: 31-year-old male presenting with paranoia. He states he did methamphetamines earlier today. He states he has been in recovery but somebody at his sober house had some and he tried it. He denies any other complaints currently. He is awake and alert and talking. He states he called his sponsor who was supposed to show up. Patient denies any other drug use. He is not having any other symptoms at this time. [facility] Medical History Anxiety Depression Smoker Substance abuse URI (upper respiratory infection) Home Medications NK 03/17/21 [History Last Taken Unknown] Allergy/AdvReac Type Severity Reaction Status Date / Time No Known Allergies Allergy Verified 09/12/21 22:45 Social History household members: none Smoking Status: Current every day smoker tobacco type: cigarettes alcohol intake: never details: Per prior records he has history of alcohol use unable to determine substance use type: amphetamines and methamphetamine ROS ROS ED Constitutional Constitutional ED: Denies chills or fever(s) Eyes Eyes: Denies blurry vision or diplopia ENT ENT ED: Denies rhinorrhea or sore throat Cardiovascular Cardiovascular: Denies chest pain or palpitations Respiratory/Chest Respiratory/Chest: Denies cough or dyspnea Gastrointestinal Gastrointestinal: Denies abdominal pain, nausea or vomiting Genitourinary Genitourinary ED: Denies dysuria Musculoskeletal Musculoskeletal: Denies arthralgias or myalgias Integumentary Denies abscess or rash Neurologic Neurologic: Denies headache(s), paresthesias or weakness Psychiatric Psychiatric: Reports other Details: Paranoia ; Denies anxiety or depression Endocrine Endocrinology: Denies polydipsia or polyuria EXAM Physical Exam Const Vital Signs: 09/12/21 22:06 Temperature 98 F Temperature Source Temporal Pulse Rate 124 H Respiratory Rate 18 Blood Pressure 172/82 H Blood Pressure Mean 112 Pulse Ox 100 Oxygen Delivery Method Room Air Positive well nourished General Appearance ED: NAD; Negative for pallor HEENT Reports moist mucous membranes atraumatic Eyes PERRL and EOMs intact bilaterally Chest Wall inspection of chest normal Resp normal respiratory effort and clear to auscultation bilaterally Cardio regular rhythm Rate: tachycardic Neuro oriented x3, CN's II-XII intact bilaterally and no sensory deficits noted Sensorium / Orientation: alert Gait (Neuro): normal gait Motor Exam: strength 5/5 throughout Psych mental status grossly normal Psych Narrative: Mildly paranoid Skin General Skin Exam: Negative for jaundice or pallor Lesions: no lesions Rashes: no rashes MDM MDM MDM Narrative Medical decision making narrative: Patient reevaluated and is doing well. He states he has a ride coming to pick him up. I do not see any reason to keep him in the hospital. He states he will talk to his sponsor. Patient stable for discharge. Impression: 1. Methamphetamine abuse 2. Paranoia Discharge Plan Triage Chief Complaint: Substance Abuse ED Provider: Garo Mckeon Dx/Rx/DC Orders Clinical Impression: Methamphetamine use Instructions: ED Drug Abuse Prescriptions: No Action NK RF: 0 Primary Care Provider: Care Physician,No Primary Referrals: Danielle Gupta DO [STAFF PHYSICIAN] - 3-5 Days Care Physician,No Primary [Primary Care Provider] - Disposition Disposition: Home, Self Care
== END 2021-09-13 05:54 | disposition home or self-care (01) ==
PROVIDERS: Emergency Provider Student in an Organized Health Care Education/Training Program; Visit Provider Student in an Organized Health Care Education/Training Program
DX: F22 Delusional disorders (principal); F15.10 Other stimulant abuse, uncomplicated; F17.210 Nicotine dependence, cigarettes, uncomplicated
CPT/HCPCS: 99282